=== PATIENT | male | born 1960 | race Caucasian/White ===

== ENCOUNTER → 2016-06-24 | Outpatient (CLI) | payer MEDICARE, OTHER ==
--- NOTE | 2016-06-24 13:48 | CT ---
EXAMINATION TYPE: CT lumbar spine wo con DATE OF EXAM: 06/24/2016 12:22 PM COMPARISON: 05/07/2010 HISTORY: low back pain, no recent injury CT DLP: 1498.6 mGycm CONTRAST: none TECHNIQUE: CT of the lumbar spine is performed on a spiral scan at 3 mm thick sections. Reconstructed images are performed in the coronal and sagittal planes. FINDINGS: T9-T10: No focal disc herniation or significant disc bulge is evident. No spinal canal stenosis or neural foraminal stenosis is present. T10-T11: Vacuum disc phenomenon is present. No significant disc bulge or spinal canal stenosis is pre sent. T11-T12: There is a Schmorl's node formation. Vacuum disc phenomenon is present. Mild superior endpla te compression deformity of T12 is present. No disc herniation or significant disc bulge is evident. T12-L1: No focal disc herniation or significant disc bulge is evident. No spinal canal stenosis or neural foraminal stenosis is present. L1-L2: Mild disc bulge is present. No spinal canal stenosis is present. Neural foramen are patent. L2-L3: Broad-based disc bulge has moderate anterior thecal sac flattening. No AP spinal canal stenosi s is present. Mild infra foraminal narrowing due to disc bulging is present. The superior endplate of L3 may have a mild compression deformity of indeterminate age. L3-L4: Broad-based disc bulge is present with moderate anterior thecal sac compression. Ligamentum fl avum laxity is present with posterior lateral thecal sac compression. This is contributing to spinal canal stenosis. The neural foramen are patent. L4-L5: Beam hardening artifact from pedicle screws limits the evaluation. Laminectomy has been perfor med. Obvious stenosis is not identified. Foramen are patent. Disc spacer is present. There is narrowi ng of the disc height. Mild vacuum disc phenomenon is present. L5-S1: Beam hardening artifact is present. Minimal grade 1 spondylolisthesis is present. There is lik erick some disc uncovering. No spinal canal stenosis is present. Neural foramen appear patent. Vacuum d isc phenomenon is likely present. Disc spacers present. The comparison study is a presurgical evaluation. The superior endplate compression deformities aren' t interval finding within the [id number] for the spondylolisthesis at L5-S1 appears stable. Spinal canal stenosis L3-4 is progressive. IMPRESSION: 1. Spinal canal stenosis L3-L4 and ligamentum flavum laxity and disc bulging. 2. Minimal grade 1 spondylolisthesis L5 anteriorly on S1. 3. Disc spaces L4-5 L5-S1. 4. Disc bulging L2-3, L3-4.
== END | disposition home or self-care (01) ==
LOC: RADCTMAIN 10:59
PROVIDERS: ATTEND Family Medicine
DX: M48.06 Spinal stenosis, lumbar region (principal); M51.26 Other intervertebral disc displacement, lumbar region; M43.17 Spondylolisthesis, lumbosacral region
CPT/HCPCS: 72131

== ENCOUNTER 2018-04-10 22:32 | Emergency (ER) | payer MEDICARE, OTHER ==
[2018-04-10 22:39] VITALS: RESP 18; TEMP 99
[2018-04-10] MEDS ORDERED: LORazepam 2 MG/ML INJ IV STA ×2 (23:07→23:09)
[2018-04-10] MEDS ORDERED: SODIUM CHLORIDE 0.9% 1,000 ML IV STA (23:09)
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
[2018-04-10 23:26] LABS: Basophils # (A) 0.1 k/uL (0-0.2); Basophils % (A) 1 %; Eosinophils # (A) 0.1 k/uL (0-0.7); Eosinophils % (A) 1 %; HCT 45.9 % (39.0-53.0); HGB 15.4 gm/dL (13.0-17.5); Lymphocytes # (A) 2.9 k/uL (1.0-4.8); Lymphocytes % (A) 29 %; MCH 30.4 pg (25.0-35.0); MCHC 33.6 g/dL (31.0-37.0); MCV 90.5 fL (80.0-100.0); Mean Platelet Volume 7.4; Monocytes # (A) 1.2 k/uL (0-1.0); Monocytes % (A) 12 %; Neutrophils # (A) 5.5 k/uL (1.3-7.7); Neutrophils % (A) 55 %; Platelet Count 223 k/uL (150-450); RBC 5.07 m/uL (4.30-5.90); RDW 14.7 % (11.5-15.5); WBC 9.9 k/uL (3.8-10.6)
[2018-04-10 23:34] LABS: Partial Thromboplastin Time 24.1 sec (22.0-30.0); Prothrombin Time 10.9 sec (9.0-12.0)
[2018-04-10 23:38] LABS: Creatine Kinase 483 U/L (55-170)
[2018-04-10 23:38] LABS: Glucose,Whole Blood 118 mg/dL (75-99)
[2018-04-10 23:40] LABS: ALT 79 U/L (21-72); AST 91 U/L (17-59); Albumin 4.5 g/dL (3.5-5.0); Alkaline Phosphatase 78 U/L (38-126); Anion Gap 13 mmol/L; Blood Urea Nitrogen 14 mg/dL (9-20); Carbon Dioxide 28 mmol/L (22-30); Chloride 96 mmol/L (98-107); Glucose 99 mg/dL (74-99); Magnesium 1.2 mg/dL (1.6-2.3); Potassium 3.2 mmol/L (3.5-5.1); Sodium 137 mmol/L (137-145); Total Bilirubin 1.3 mg/dL (0.2-1.3); Total Protein 7.7 g/dL (6.3-8.2)
--- NOTE | 2018-04-10 23:44 | CT ---
EXAMINATION TYPE: CT brain wo con DATE OF EXAM: 04/10/2018 COMPARISON: 01/29/2017 HISTORY: tremors, dizziness. CT DLP: 1127.40 mGycm Automated exposure control for dose reduction was used. FINDINGS: There is a large left posterior temporal craniotomy defect. There is hypodensity in large area of the left temporal lobe consistent with old infarct and encephalomalacia. There is no midline shift. Ther e is no sign of intracranial hemorrhage. IMPRESSION: OLD ENCEPHALOMALACIA LEFT TEMPORAL LOBE WITHOUT CHANGE COMPARED TO OLD EXAM. NO ACUTE INTRACRANIAL AB NORMALITY.
[2018-04-10 23:49] LABS: Creatine Kinase MB 6.3 ng/mL (0.0-2.4); Troponin I <0.012 ng/mL (0.000-0.034)
--- NOTE | 2018-04-10 23:51 | XR ---
EXAMINATION TYPE: XR chest 2V DATE OF EXAM: 04/10/2018 COMPARISON: 03/11/2015 HISTORY: Dizziness TECHNIQUE: Frontal and lateral views of the chest are obtained. FINDINGS: Heart and mediastinum are normal. Lungs are clear. Costophrenic angles are clear. There ar e chest leads. Bony thorax is intact. IMPRESSION: Normal chest. No change.
[2018-04-11] MEDS ORDERED: POTASSIUM CHLORIDE ER 20 MEQ TAB.ER PO STA (00:01)
[2018-04-11] MEDS ORDERED: MAGNESIUM OXIDE 400 MG TAB PO STA (00:01)
[2018-04-11] MEDS: MAGNESIUM SULFATE-D5W PMX 1 GM in DEXTROSE/WATER 1 100ML.BAG IVPB SCH ×2 (00:15→01:46)
[2018-04-11 01:45] VITALS: BP 127/84; PULSE 79
== END 2018-04-11 01:48 | disposition home or self-care (01) ==
LOC: EC 22:32
DX: F10.239 Alcohol dependence with withdrawal, unspecified (principal); K21.9 Gastro-esophageal reflux disease without esophagitis; I10 Essential (primary) hypertension; M19.90 Unspecified osteoarthritis, unspecified site; M10.9 Gout, unspecified; Z86.73 Personal history of transient ischemic attack (TIA), and cerebral infarction without residual deficits; Z96.652 Presence of left artificial knee joint; Z87.891 Personal history of nicotine dependence; Z79.891 Long term (current) use of opiate analgesic; Z79.899 Other long term (current) drug therapy; Z88.6 Allergy status to analgesic agent; Z53.20 Procedure and treatment not carried out because of patient's decision for unspecified reasons
CPT/HCPCS: 36415; 93005; 80053; 82550; 82553; 83735; 84484; 85025; 85610; 85730; 71046; 70450; 99285; 96365; 96375; 96361; J2060; J3475

== ENCOUNTER → 2018-05-03 | Outpatient (CLI) | payer MEDICARE, OTHER ==
--- NOTE | 2018-05-03 12:50 | CT ---
EXAMINATION TYPE: CT angio chest DATE OF EXAM: 05/03/2018 COMPARISON: CTA chest February 27, 2015. Two-view chest x-ray April 10, 2018. HISTORY: Elevated d-dimer. CT DLP: 463.2 mGycm. Automated Exposure Control for Dose Reduction was Utilized. CONTRAST: CTA scan of the thorax is performed with IV Contrast, patient injected with 100 mL of Isovue 370, pul monary embolism protocol. MIP Images are created on CT scanner and reviewed. FINDINGS: LUNGS: The lungs are grossly clear, there is no concerning parenchymal mass or nodule identified. T here is no pleural effusion or pneumothorax seen. The tracheobronchial tree is patent. MEDIASTINUM: There is satisfactory enhancement of the pulmonary artery and its branches, there is no CT evidence for pulmonary embolism. There are no greater than 1 cm hilar or mediastinal lymph nodes. No cardiomegaly or pericardial effusion is seen. Coronary artery calcification is seen which is no darcy marked coronary artery disease. OTHER: Moderate multilevel spurring in the spine is present. Bilateral gynecomastia is present with p rogression from 2015 study noted. IMPRESSION: No CT evidence for acute pulmonary embolism. No suspicious acute pulmonary process.
== END ==
LOC: RADCTMAIN 12:02
PROVIDERS: ATTEND Family Medicine
DX: R79.1 Abnormal coagulation profile (principal)
CPT/HCPCS: 71275; Q9967

== ENCOUNTER 2018-05-14 18:16 | Emergency (ER) | payer MEDICARE, OTHER ==
[2018-05-14 18:35] VITALS: BP 154/88
[2018-05-14] MEDS ORDERED: ACETAMINOPHEN TAB 500 MG TAB PO STA (20:01)
[2018-05-14] MEDS ORDERED: LIDOCAINE 5% PATCH TOPICAL STA (20:02)
--- NOTE | 2018-05-14 20:24 | XR ---
EXAMINATION TYPE: XR chest 2V DATE OF EXAM: 05/14/2018 COMPARISON: 04/10/2018 HISTORY: Neck pain. Chest pain TECHNIQUE: Frontal and lateral views of the chest are obtained. FINDINGS: There is no heart failure nor confluent pneumonic infiltrate. Costophrenic angles are reji r. There is no pleural effusion. Bony thorax is intact. IMPRESSION: No active cardiopulmonary disease. Normal heart. No change.
--- NOTE | 2018-05-14 20:25 | XR ---
EXAMINATION TYPE: XR cervical spine comp DATE OF EXAM: 05/14/2018 COMPARISON: NONE HISTORY: Neck pain TECHNIQUE: 5 views FINDINGS: There is degenerative disc space narrowing throughout the cervical spine with spur formatio n. There is slight kyphotic curvature. Posterior elements are intact. Atlantoaxial facet joint is int act. There are no cervical ribs. IMPRESSION: Spondylotic changes. No fracture.
[2018-05-14 20:33] VITALS: PULSE 94; RESP 22; TEMP 98.3
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
[2018-05-14 20:54] LABS: Appearance,Urine Clear (Clear); Bilirubin,Urine Negative (Negative); Blood,Urine Negative (Negative); Color,Urine Yellow; Glucose,Urine (UA) Negative (Negative); Ketones,Urine Negative (Negative); Leukocyte Esterase,Urine Negative (Negative); Nitrite,Urine Negative (Negative); Protein,Urine Negative (Negative); Specific Gravity,Urine 1.003 (1.001-1.035); Urobilinogen,Urine <2.0 mg/dL (<2.0)
== END 2018-05-14 21:10 | disposition home or self-care (01) ==
LOC: EC 18:16
DX: G89.29 Other chronic pain (principal); M54.9 Dorsalgia, unspecified; M54.2 Cervicalgia; R51 Headache; R05 Cough; K21.9 Gastro-esophageal reflux disease without esophagitis; I10 Essential (primary) hypertension; M19.90 Unspecified osteoarthritis, unspecified site; Z79.899 Other long term (current) drug therapy; Z88.6 Allergy status to analgesic agent; Z86.73 Personal history of transient ischemic attack (TIA), and cerebral infarction without residual deficits; Z86.718 Personal history of other venous thrombosis and embolism; Z87.891 Personal history of nicotine dependence
CPT/HCPCS: 71046; 72050; 81003; 99284

== ENCOUNTER → 2018-05-24 | Outpatient (CLI) | payer MEDICARE, OTHER ==
--- NOTE | 2018-05-24 12:34 | CT ---
EXAMINATION TYPE: CT cervical spine wo con DATE OF EXAM: 05/24/2018 COMPARISON: 09/20/2011 HISTORY: Cervicalgia CT DLP: 539.[address] of the cervical spine was performed with bone and soft tissue window settings submitted . Coronal and sagittal reconstruction is obtained. C2-3: Within normal limits C3-4: Severe degenerative disc space narrowing. Endplate sclerosis with subchondral cyst formation. V entral and dorsal spondylosis. Posterior disc endplate complex effacing the ventral thecal sac. Degen erative change cervical apophyseal joints with bilateral foraminal encroachment. No lokesh central denisse nosis appreciated at this time. C4-5:Severe degenerative disc space narrowing. Endplate sclerosis with subchondral cyst formation. Ve ntral and dorsal spondylosis. Posterior disc endplate complex effacing the ventral thecal sac. Degene rative change cervical apophyseal joints with bilateral foraminal encroachment. Mild to moderate cent ral stenosis identified. C5-6:Severe degenerative disc space narrowing. Endplate sclerosis with subchondral cyst formation. Ve ntral and dorsal spondylosis. Posterior disc endplate complex effacing the ventral thecal sac. Degene rative change cervical apophyseal joints with bilateral foraminal encroachment. Mild central stenosis noted. C6-7:Severe degenerative disc space narrowing. Endplate sclerosis with subchondral cyst formation. Ve ntral and dorsal spondylosis. Posterior disc endplate complex effacing the ventral thecal sac. Degene rative change cervical apophyseal joints with bilateral foraminal encroachment. No central stenosis a ppreciated. C7-T1: Mild degenerative disc space narrowing. Minimal spondylosis. No herniation protrusion or centr al stenosis. No foraminal encroachment. No evidence for malalignment or fracture. IMPRESSION: 1. Severe multilevel degenerative disc disease with the disc endplate complex and central stenosis as outlined above.
--- NOTE | 2018-05-24 12:40 | CT ---
EXAMINATION TYPE: CT thoracic spine wo con DATE OF EXAM: 05/24/2018 COMPARISON: June 10, 2009 HISTORY: Pain in thoracic spine CT DLP: 1313.40 mGycm Automated exposure control for dose reduction was used. Unenhanced CT of the thoracic spine was performed with bone and soft tissue window settings submitted . Sagittal coronal axial images are reviewed. There is normal alignment and prevertebral soft tissues. Multilevel Schmorl node formation is identif ied there is ventral spondylosis. Mild posterior disc bulges seen at several levels without evidence for disc herniation or protrusion. There is no evidence for central stenosis. No evidence for bony de structive process. No compression fractures are evident. No paraspinal mass identified. FINDINGS: IMPRESSION: 1. DEGENERATIVE DISC SPACE NARROWING AND MILD SPONDYLOSIS. NO CENTRAL STENOSIS APPRECIATED. 2. MULTILEVEL SCHMORL NODE FORMATION.
== END | disposition home or self-care (01) ==
LOC: RADCTMAIN 11:19
PROVIDERS: ATTEND Family Medicine
DX: M48.02 Spinal stenosis, cervical region (principal); M50.31 Other cervical disc degeneration, high cervical region; M48.04 Spinal stenosis, thoracic region; M47.814 Spondylosis without myelopathy or radiculopathy, thoracic region
CPT/HCPCS: 72125; 72128

== ENCOUNTER → 2018-10-15 | Outpatient (CLI) | payer MEDICARE, OTHER ==
--- NOTE | 2018-10-15 08:17 | CT ---
EXAMINATION TYPE: CT lumbar spine wo con DATE OF EXAM: 10/15/2018 COMPARISON: 06/24/2016 HISTORY: Low back pain CT DLP: [address] of the lumbar spine was performed. Bone and soft tissue window settings are submitted as well as coronal and sagittal reconstructions. L1-L2: Normal disc space height. No disc herniation protrusion or central stenosis. No facet joint arthropathy. No evidence for foraminal encroachment. L2-L3: Mild degenerative disc space narrowing. Mild circumferential disc bulge greatest posteriorly w ith mild effacement ventral thecal sac. No evidence for central stenosis or disc herniation. Foramina are patent bilaterally. L3-L4: Moderate degenerative disc space narrowing. Moderate circumferential disc bulge. Hypertrophy o f ligamentum flavum and facet joint arthropathy resulting in moderate central stenosis. L4-L5: Post Operative changes of the lumbar laminectomy and fusion. Intervertebral body spacers in pl [place]. Alignment is anatomic at this level. No evidence for recurrent or residual disease. Streak artif act from a pedicular screws limits evaluation. L5-S1: Postoperative changes of lumbar laminectomy and fusion. Grade 1 anterolisthesis of L5 on S1 is stable at 5 mm. Intervertebral body spacer noted. No evidence recurrent or residual disease at this time. No paraspinal masses are identified. Lumbar segments are free of fracture. IMPRESSION: 1. Persistent canal stenosis and degenerative disc disease at L3-4. 2. Stable left postoperative changes of the lumbar fusion and laminectomy at L4-5 and L5-S1. Grade 1 anterolisthesis L5 on S1 is noted.
== END | disposition home or self-care (01) ==
LOC: RADCTMAIN 07:31
PROVIDERS: ATTEND Family Medicine
DX: M48.061 Spinal stenosis, lumbar region without neurogenic claudication (principal); M43.16 Spondylolisthesis, lumbar region; M51.36 Other intervertebral disc degeneration, lumbar region
CPT/HCPCS: 72131

== ENCOUNTER 2018-11-23 18:04 | Observation (INO) | payer MEDICARE, OTHER ==
[2018-11-23] MEDS ORDERED: DIAZEPAM 5 MG/ML 2 ML INJ IVP STA (18:30)
[2018-11-23] MEDS ORDERED: SODIUM CHLORIDE 0.9% 500 ML 500 ML IV STA (18:30)
[2018-11-23] MEDS ORDERED: HYDROmorphone 0.5 MG/0.5 ML SYRINGE IVP STA (18:30)
[2018-11-23] MEDS ORDERED: ONDANSETRON 4 MG/2 ML VIAL IVP STA (18:39)
[2018-11-23 18:44] LABS: Basophils # (A) 0.1 k/uL (0-0.2); Basophils % (A) 0 %; Eosinophils # (A) 0.1 k/uL (0-0.7); Eosinophils % (A) 1 %; HCT 50.9 % (39.0-53.0); HGB 17.5 gm/dL (13.0-17.5); Lymphocytes # (A) 2.4 k/uL (1.0-4.8); Lymphocytes % (A) 16 %; MCH 32.1 pg (25.0-35.0); MCHC 34.4 g/dL (31.0-37.0); MCV 93.2 fL (80.0-100.0); Mean Platelet Volume 7.1; Monocytes # (A) 1.6 k/uL (0-1.0); Monocytes % (A) 11 %; Neutrophils # (A) 10.5 k/uL (1.3-7.7); Neutrophils % (A) 71 %; Platelet Count 306 k/uL (150-450); RBC 5.46 m/uL (4.30-5.90); RDW 14.4 % (11.5-15.5); WBC 14.8 k/uL (3.8-10.6)
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
[2018-11-23 18:50] LABS: INR 1.1 (<1.2); Partial Thromboplastin Time 27.2 sec (22.0-30.0); Prothrombin Time 11.3 sec (9.0-12.0)
[2018-11-23 18:51] LABS: ALT 42 U/L (21-72); AST 44 U/L (17-59); African American GFR (CKD) >90 (>60 ml/min/1.73 sqM); Albumin 4.2 g/dL (3.5-5.0); Alkaline Phosphatase 85 U/L (38-126); Amylase 35 U/L (30-110); Anion Gap 15 mmol/L; Blood Urea Nitrogen 5 mg/dL (9-20); Carbon Dioxide 28 mmol/L (22-30); Chloride 93 mmol/L (98-107); Glucose 119 mg/dL (74-99); Non-African American GFR(CKD) >90 (>60 ml/min/1.73 sqM); Potassium 3.3 mmol/L (3.5-5.1); Sodium 136 mmol/L (137-145); Total Bilirubin 1.2 mg/dL (0.2-1.3); Total Protein 7.8 g/dL (6.3-8.2)
[2018-11-23] MEDS ORDERED: POTASSIUM CHLORIDE ER 20 MEQ TAB.ER PO STA (19:13)
[2018-11-23] MEDS ORDERED: HYDROmorphone 1 MG/ML 1 ML SYRINGE IVP STA (20:06)
--- NOTE | 2018-11-23 21:24 | XR ---
EXAMINATION: XR chest 2V DATE AND TIME: 11/23/2018 7:56 PM CLINICAL INDICATION: PHH; abdominal pain TECHNIQUE: AP and lateral COMPARISON: 05/14/2018 FINDINGS: The diaphragms are both elevated, particularly on the right. This was present on the prior study and is consistent with low lung inflation at the moment of x-ray exposure. This does not allow visualizat ion of the lower lobes, particularly on the right. The lungs appear to be clear as seen. The pleural spaces are negative. The cardiac silhouette is not enlarged. The remainder of the mediastinal silhouette is unremarkable. The skeletal structures and soft tissues are negative for acute findings. IMPRESSION: No definite acute process.
[2018-11-23 21:59] LABS: Appearance,Urine Cloudy (Clear); Bilirubin,Urine 1+ (Negative); Blood,Urine Negative (Negative); Color,Urine Dark Brown; Glucose,Urine (UA) Negative (Negative); Hyaline Casts,Urine 294 /lpf (0-2); Ketones,Urine Negative (Negative); Leukocyte Esterase,Urine Small (Negative); Mucus,Urine Many /hpf; Nitrite,Urine Negative (Negative); Protein,Urine 1+ (Negative); RBC,Urine 3 /hpf (0-5); Specific Gravity,Urine 1.024 (1.001-1.035); WBC,Urine 28 /hpf (0-5)
[2018-11-23] MEDS ORDERED: KETOROLAC 30 MG/ML 1 ML VIAL IVP STA (23:12)
[2018-11-23] MEDS ORDERED: NITROGLYCERIN SL TABS 0.4 MG TAB SUBLINGUAL PRN (23:15)
[2018-11-23] MEDS ORDERED: LABETALOL 5 MG/ML VIAL MDV IVP STA (23:57)
[2018-11-24 02:13] VITALS: BMI 29.0
[2018-11-24] MEDS: HYDROmorphone 1 MG/ML 1 ML SYRINGE IVP PRN ×4 (02:25→23:04)
[2018-11-24 07:03] LABS: Cholesterol 149 mg/dL (<200); HDL Cholesterol 38 mg/dL (40-60); LDL Cholesterol,Calculated 96 mg/dL (0-99); Triglycerides 73 mg/dL (<150)
[2018-11-24] MEDS ORDERED: GABAPENTIN 100 MG CAP PO STA (10:00)
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
[2018-11-24] MEDS: amLODIPine 10 MG TAB PO SCH (11:28)
[2018-11-24] MEDS: PANTOPRAZOLE 40 MG TABLET PO SCH (11:28)
[2018-11-24] MEDS: METOPROLOL SUCCINATE (ER) 50 MG TAB.ER.24H PO SCH (11:28)
[2018-11-24] MEDS: POTASSIUM CHLORIDE ER 10 MEQ TAB.ER.PRT PO SCH (11:29)
[2018-11-24] MEDS: FUROSEMIDE 40 MG TAB PO SCH (11:29)
[2018-11-24] MEDS: ENOXAPARIN 40 MG/0.4 ML SYRINGE SQ SCH (11:29)
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
[2018-11-24 12:30] LABS: Basophils # (A) 0.1 k/uL (0-0.2); Basophils % (A) 0 %; Eosinophils # (A) 0.1 k/uL (0-0.7); Eosinophils % (A) 1 %; HCT 43.1 % (39.0-53.0); Lymphocytes % (A) 14 %; MCH 31.7 pg (25.0-35.0); MCHC 32.5 g/dL (31.0-37.0); MCV 97.6 fL (80.0-100.0); Mean Platelet Volume 8.9; Monocytes # (A) 1.9 k/uL (0-1.0); Monocytes % (A) 13 %; Neutrophils % (A) 70 %; Platelet Count 213 k/uL (150-450); RBC 4.42 m/uL (4.30-5.90); RDW 15.8 % (11.5-15.5); WBC 14.3 k/uL (3.8-10.6)
[2018-11-24] MEDS ORDERED: QUEtiapine 50 MG TAB PO SCH (21:00)
[2018-11-24] MEDS ORDERED: OXcarbazepine 150 MG TAB PO SCH (21:00)
[2018-11-25 06:45] VITALS: RESP 16
[2018-11-25] MEDS: HYDROmorphone 1 MG/ML 1 ML SYRINGE IVP PRN ×2 (06:54→11:23)
[2018-11-25] MEDS: PANTOPRAZOLE 40 MG TABLET PO SCH (06:54)
[2018-11-25 07:06] LABS: Basophils # (A) 0.1 k/uL (0-0.2); Basophils % (A) 0 %; Eosinophils # (A) 0.2 k/uL (0-0.7); Eosinophils % (A) 1 %; HCT 45.1 % (39.0-53.0); Lymphocytes # (A) 2.1 k/uL (1.0-4.8); Lymphocytes % (A) 14 %; MCH 31.5 pg (25.0-35.0); MCHC 33.3 g/dL (31.0-37.0); MCV 94.7 fL (80.0-100.0); Mean Platelet Volume 7.1; Monocytes # (A) 1.9 k/uL (0-1.0); Monocytes % (A) 13 %; Neutrophils % (A) 70 %; Platelet Count 254 k/uL (150-450); RBC 4.76 m/uL (4.30-5.90); RDW 13.8 % (11.5-15.5); WBC 14.4 k/uL (3.8-10.6)
[2018-11-25 07:31] LABS: ALT 38 U/L (21-72); AST 45 U/L (17-59); African American GFR (CKD) >90 (>60 ml/min/1.73 sqM); Albumin 3.7 g/dL (3.5-5.0); Alkaline Phosphatase 70 U/L (38-126); Anion Gap 10 mmol/L; Blood Urea Nitrogen 11 mg/dL (9-20); Calcium 8.2 mg/dL (8.4-10.2); Carbon Dioxide 31 mmol/L (22-30); Chloride 91 mmol/L (98-107); Glucose 98 mg/dL (74-99); Non-African American GFR(CKD) >90 (>60 ml/min/1.73 sqM); Potassium 3.3 mmol/L (3.5-5.1); Sodium 132 mmol/L (137-145); Total Bilirubin 1.2 mg/dL (0.2-1.3); Total Protein 6.9 g/dL (6.3-8.2)
[2018-11-25] MEDS: METOPROLOL SUCCINATE (ER) 50 MG TAB.ER.24H PO SCH (08:03)
[2018-11-25] MEDS: FUROSEMIDE 40 MG TAB PO SCH (08:03)
[2018-11-25] MEDS: ENOXAPARIN 40 MG/0.4 ML SYRINGE SQ SCH (08:03)
[2018-11-25] MEDS: amLODIPine 10 MG TAB PO SCH (08:03)
[2018-11-25] MEDS: POTASSIUM CHLORIDE ER 10 MEQ TAB.ER.PRT PO SCH (08:03)
[2018-11-25] MEDS ORDERED: Potassium Replacement Protocol 1 EACH MISC MISCELLANE PRN ×2 (08:28→08:33)
[2018-11-25] MEDS: POTASSIUM CHLORIDE ER 20 MEQ TAB.ER PO SCH ×2 (09:14→11:22)
--- NOTE | 2018-11-25 11:30 | P.PN ---
Subjective Progress Note Date: 11/25/18 This is a 58-year-old gentleman with history of EtOH abuse, seizures, chronic back pain, prior CVA, history of DVT, hypertension, who presented to the hospital with right lower back discomfort with associated back spasms. He chronically has back pain but over the past 3 days the pain is Rey if acutely worse. Patient states he also had a pain that went up the back of his neck and into his head, he usually takes marijuana for this at home. Patient was having some episodes of associated vomiting when his pain got really bad and he came to the emergency room then for further evaluation and treatment. Chest x-ray did not reveal any acute process. EKG on arrival here showed normal sinus rhythm with nonspecific ST-T wave changes. Patient did have an EKG in the chart that showed a sinus bradycardia with a first-degree AV block. He was having significant pain at the time. I pressure 132/80 with a heart rate in the 80s, 96% on room air. The patient is running a low-grade temperature of 99.4. White blood cell count 14.8, hemoglobin 17.5, platelet count 306. Sodium 136, potassium 3.3, BUN 5, creatinine 0.6. Lactic acid on admission 2.3, troponins negative 3. UA shows a small amount of leukocyte Estrace. At the time of my examination this morning, patient complains of severe right lower back pain, he denies any chest discomfort but states when his pain gets really severe he developed some sharp stabbing sensations in the center of his chest. He also states that he had a stress test performed just over a year ago which he was told was normal at that time. 11/25/2018 Patient was seen and examined this morning, denies any chest discomfort. Hemodynamically stable. We are still awaiting the echocardiogram with Doppler results. But from our perspective, patient is cleared for discharge we will follow him up as an outpatient and perform outpatient stress testing once his back symptoms have improved. Objective - Vital Signs Vital signs: Vital Signs Temp 98.2 F 11/25/18 08:25 Pulse 102 H 11/25/18 08:25 Resp 16 11/25/18 08:25 BP 131/89 11/25/18 08:25 Pulse Ox 94 L 11/25/18 08:25 Intake & Output 11/24/18 11/25/18 11/25/18 18:59 06:59 18:59 Intake Total 240 360 Output Total 250 Balance 240 -250 360 Weight 94.2 kg Intake: Oral 240 360 Output: Urine 250 Other: Voiding Method Toilet Toilet Toilet Urinal Urinal # Voids 2 1 - Exam PHYSICAL EXAMINATION: GENERAL: 58-year-old gentleman, complaining of severe right lower back pain at the time of my examination HEENT: Head is atraumatic, normocephalic. Pupils equal, round. Sclera anicteric. Conjunctiva are clear. Mucous membranes of the mouth are moist. Neck is supple. There is no elevated jugular venous pressure. No carotid bruit is heard. HEART EXAMINATION: Heart S1, S2 normal. No murmur or gallop heard. CHEST EXAMINATION: Lungs are clear to auscultation and precussion. No chest wall tenderness is noted on palpation or with deep breathing. ABDOMEN: Soft, nontender. Bowel sounds are heard. No organomegaly noted. EXTREMITIES: 2+ peripheral pulses with no evidence of peripheral edema and no ca lf tenderness noted. Complaining of severe right lower back pain NEUROLOGIC patient is awake, alert and oriented 3 . - Labs CBC & Chem 7: 11/25/18 06:47 11/25/18 06:47 Labs: Abnormal Lab Results - Last 24 Hours (Table) 11/24/18 11/25/18 11/25/18 Range/Units 06:21 06:47 06:47 WBC 14.3 H 14.4 H (3.8-10.6) k/uL RDW 15.8 H (11.5-15.5) % Neutrophils # 10.0 H 10.0 H (1.3-7.7) k/uL Monocytes # 1.9 H 1.9 H (0-1.0) k/uL Sodium 132 L (137-145) mmol/L Potassium 3.3 L (3.5-5.1) mmol/L Chloride 91 L (98-107) mmol/L Carbon Dioxide 31 H (22-30) mmol/L Calcium 8.2 L (8.4-10.2) mg/dL Magnesium (1.6-2.3) mg/dL 11/25/18 Range/Units 06:47 WBC (3.8-10.6) k/uL RDW (11.5-15.5) % Neutrophils # (1.3-7.7) k/uL Monocytes # (0-1.0) k/uL Sodium (137-145) mmol/L Potassium (3.5-5.1) mmol/L Chloride (98-107) mmol/L Carbon Dioxide (22-30) mmol/L Calcium (8.4-10.2) mg/dL Magnesium 1.1 L (1.6-2.3) mg/dL Microbiology - Last 24 Hours (Table) 11/23/18 18:57 Urine Culture - Preliminary Urine,Catheterized Assessment and Plan Plan: Assessment and plan #1 severe right lower back pain and spasms. Patient has history of chronic back pain #2 atypical chest pain, sharp in nature, not suggestive of acute coronary syndrome. Troponins negative 3. EKG shows normal sinus rhythm with nonspecific ST-T wave changes #3 history of seizures #4 prior CVA #5 chronic back pain #6 EtOH abuse #7 mild UTI Plan Patient states he underwent a stress test proximally one year ago which was negative we will attempt to obtain a report of that, we will obtain an echocardiogram with Doppler study. At this point time patient will not be able to undergo any type of stress testing because of his complaints of severe back pain, once his back pain stabilizes we will recommend repeating a stress test. Further recommendations to follow. DNP note has been reviewed, I agree with a documented findings and plan of care. Patient was seen and examined.
[2018-11-25] MEDS ORDERED: Magnesium Replacement Protocol 1 EACH MISC MISCELLANE PRN (11:31)
[2018-11-25] MEDS ORDERED: MAGNESIUM OXIDE 400 MG TAB PO SCH (12:00)
[2018-11-25] MEDS: MAGNESIUM SULFATE-D5W PMX 1 GM in DEXTROSE/WATER 1 100ML.BAG IVPB SCH ×3 (12:02→15:06)
[2018-11-25] MEDS: GABAPENTIN 100 MG CAP PO SCH ×2 (12:06→17:44)
--- NOTE | 2018-11-25 12:06 | ECHOF ---
Referral Reason:chest pain MEASUREMENTS -------- HEIGHT: 175.3 cm WEIGHT: 95.3 kg BP: IVSd: 1.1 cm (0.6 - 1.1) LVIDd: 3.7 cm (3.9 - 5.3) LVPWd: 1.4 cm (0.6 - 1.1) IVSs: 1.8 cm LVIDs: 2.8 cm LVPWs: 2.1 cm RVIDd: 2.8 cm (< 3.3) LAESV Index (A-L): 34.92 ml/m Ao Diam: 3.0 cm (2.0 - 3.7) LA Diam: 3.9 cm (2.7 - 3.8) AV Cusp: 2.3 cm (1.5 - 2.6) EPSS: 0.2 cm MV E Charles: 0.73 m/s MV DecT: 279 ms MV A Charles: 0.70 m/s MV E/A Ratio: 1.05 RAP: 5.00 mmHg RVSP: 31.52 mmHg MV EF SLOPE: 117.41 mm/s (70 - 150) MV EXCURSION: 1.73 cm (> 18.000) FINDINGS -------- Sinus rhythm. This was a technically difficult study with suboptimal views. The left ventricular size is normal. There is mild concentric left ventricular hypertrophy. Overa ll left ventricular systolic function is low-normal with, an EF between 50 - 55 %. The diastolic fi lling pattern is normal for the age of the patient. The right ventricle is normal in size. Left atrium is mildly dilated by volume. The right atrium was not well visualized. Lumason used Interatrial and interventricular septum intact. The aortic valve is trileaflet and appears structurally normal. There is no evidence of aortic regu rgitation. There is no evidence of aortic stenosis. Mild mitral regurgitation is present. Mild tricuspid regurgitation present. There is no evidence of pulmonary hypertension. The right v entricular systolic pressure, as measured by Doppler, is 31.52mmHg. There is no pulmonic regurgitation present. The aortic root size is normal. IVC not well visualized There is no pericardial effusion. CONCLUSIONS -------- 1. Sinus rhythm. 2. This was a technically difficult study with suboptimal views. 3. The left ventricular size is normal. 4. There is mild concentric left ventricular hypertrophy. 5. Overall left ventricular systolic function is low-normal with, an EF between 50 - 55 %. 6. The diastolic filling pattern is normal for the age of the patient. 7. The right ventricle is normal in size. 8. Left atrium is mildly dilated by volume. 9. The right atrium was not well visualized. 10. Lumason used 11. Interatrial and interventricular septum intact. 12. The aortic valve is trileaflet and appears structurally normal. 13. There is no evidence of aortic regurgitation. 14. There is no evidence of aortic stenosis. 15. Mild mitral regurgitation is present. 16. Mild tricuspid regurgitation present. 17. There is no evidence of pulmonary hypertension. 18. The right ventricular systolic pressure, as measured by Doppler, is 31.52mmHg. 19. There is no pulmonic regurgitation present. 20. The aortic root size is normal. 21. IVC not well visualized 22. There is no pericardial effusion. SOFTWARE ENGINEER [employer]: Karen Ya RDCS
--- NOTE | 2018-11-25 15:24 | P.DS ---
Providers Date of admission: 11/24/18 00:27 Expected date of discharge: 11/25/18 Attending physician: Олег Sanford MD Consults: 11/23/18 23:15 Consult Physician Routine Consulting Provider: [facility] Consult Reason/Comments: Chest Pain Do you want consulting provider notified?: Yes Primary care physician: [facility] Course: Final Diagnoses: (1) Hypertension Current Visit: Yes Status: Acute Code(s): I10 - ESSENTIAL (PRIMARY) HYPERTENSION SNOMED Code(s): 61531208 (2) Seizure disorder Current Visit: Yes Status: Acute Code(s): G40.909 - EPILEPSY, UNSP, NOT INTRACTABLE, WITHOUT STATUS EPILEPTICUS SNOMED Code(s): 948016578 (3) Chronic pain Current Visit: Yes Status: Acute Code(s): G89.29 - OTHER CHRONIC PAIN SNOMED Code(s): 84675989 (4) Chest pain Current Visit: Yes Status: Acute Code(s): R07.9 - CHEST PAIN, UNSPECIFIED SNOMED Code(s): 24693966 (5) Intractable back pain Current Visit: Yes Status: Acute Code(s): M54.9 - DORSALGIA, UNSPECIFIED S NOMED Code(s): 601572744 (6) Urinary tract infection, urine culture reported no growth after 18 hours Current Visit: Yes Status: Acute Code(s): N39.0 - URINARY TRACT INFECTION, SITE NOT SPECIFIED SNOMED Code(s): 98659243 Hospital course: Pertinent Studies: (1) Hypertension Current Visit: Yes Status: Acute Code(s): I10 - ESSENTIAL (PRIMARY) HYPERTEN FELICITAS SNOMED Code(s): 72891657 (2) Seizure disorder Current Visit: Yes Status: Acute Code(s): G40.909 - EPILEPSY, UNSP, NOT INTRACTABLE, WITHOUT STATUS EPILEPTICUS SNOMED Code(s): 894099161 (3) Chronic pain Current Visit: Yes Status: Acute Code(s): G89.29 - OTHER CHRONIC PAIN SNOMED Code(s): 16578212 (4) Chest pain Current Visit: Yes Status: Acute Code(s): R07.9 - CHEST PAIN, UNSPECIFIED SNOMED Code(s): 17618205 (5) Intractable back pain Current Visit: Yes Status: Acute Code(s): M54.9 - DORSALGIA, UNSPECIFIED SNOMED Code(s): 444879767 (6) Urinary tract infection, urine culture reported no growth at 18 hours. Current Visit: Yes Status: Acute Code(s): N39.0 - URINARY TRACT INFECTION, SITE NOT SPECIFIED SNOMED Code(s): 37444978 (7) hypokalemia (8) hypomagnesemia Hospital course:Ruben Sharp is a 58 yo M with PMH significant for chronic back pain, CVA, seizure disorder, alcohol abuse who presented to the ED with new onset chest pain and pressure. He also complains of severe low back pain worsened from his baseline. Pt states that over the past 3 days his back pain had worsened to the point that he has had 'jolts' of severe lumbar pain with most movement and by yesterday he began to have dry heaves and vomiting. After vomiting pt began to notice chest pain and pressure which he describes as heaviness and burning across his sternum. He also reports shortness of breath with activity. Pt states he recently had a stress test about a year ago which was normal. He denies tobacco but continues to drink alcohol. Denies numbness/ti ngling, vision change, vomiting or abdominal pain. In the ED, vitals stable, CXR clear, WBC elevated to 14k with evidence of UTI and lactic 2.3. Trop negative x3. Evaluated by cardiology, recommending outpatient stress test once chronic back pain better controlled. Neurontin added to med regime. Urine culture reported no growth at 18 hours. Significant clinical improvement. Potassium and mag nesium being supplemented with follow-up labs this afternoon. Patient cleared by cardiology for discharge. Patient will be discharged home in a stable condition with guarded prognosis pending follow-up potassium and magnesium levels within normal limits. General: well nourished, well developed, painful with movement. Vitals reviewed Eyes: PERRL, EOMI, conjunctiva normal HENT: normocephalic, mucus membranes moist Neck: supple, no JVD Lungs: normal respiratory effort, no wheezes or rales CV: Regular rate and rhythm, no murmur. Peripheral pulses 2+ Abdomen: soft, nondistended, no organomegaly MSK: low back tenderness to palpation lumbar paraspinal muscles. No peripheral edema Skin: warm and dry. Neuro: A&Ox3, anxious. No focal deficits. LE str 5/5 and DTRs 2+ The impression and plan of care has been dictated as directed. : I performed a history and examination of this patient, discussed the same with the dictator. I agree with the dictator's note ,documented as a scribe. Any additional findings or plans will be noted. Time taken: 35 min. Patient Condition at Discharge: Stable Plan - Discharge Summary Discharge Rx Participant: No New Discharge Prescriptions: New Gabapentin [Neurontin] 100 mg PO TID #21 cap Magnesium Chloride [Slow Mag] 64 mg PO TID #30 tablet.er Continue amLODIPine BESYLATE [Norvasc] 10 mg PO DAILY Metoprolol Succinate [Toprol XL] 50 mg PO DAILY Furosemide [Lasix] 40 mg PO DAILY Omeprazole [PriLOSEC] 40 mg PO DAILY oxyCODONE HCL [oxyCODONE HCL (IR)] 20 mg PO TID Allopurinol [Zyloprim] 300 mg PO DAILY Potassium Chloride ER [K-Dur 10] 10 meq PO DAILY OXcarbazepine [Trileptal] 150 - 300 mg PO HS QUEtiapine [SEROquel] 50 mg PO HS Discharge Medication List Furosemide [Lasix] 40 mg PO DAILY 03/07/15 [History] Metoprolol Succinate [Toprol XL] 50 mg PO DAILY 03/07/15 [History] Omeprazole [PriLOSEC] 40 mg PO DAILY 03/07/15 [History] amLODIPine BESYLATE [Norvasc] 10 mg PO DAILY 03/07/15 [History] Allopurinol [Zyloprim] 300 mg PO DAILY 04/10/18 [History] oxyCODONE HCL [oxyCODONE HCL (IR)] 20 mg PO TID 04/10/18 [History] OXcarbazepine [Trileptal] 150 - 300 mg PO HS 11/24/18 [History] Potassium Chloride ER [K-Dur 10] 10 meq PO DAILY 11/24/18 [History] QUEtiapine [SEROquel] 50 mg PO HS 11/24/18 [History] Gabapentin [Neurontin] 100 mg PO TID #21 cap 11/25/18 [Rx] Magnesium Chloride [Slow Mag] 64 mg PO TID #30 tablet.er 11/25/18 [Rx] Follow up Appointment(s)/Referral(s): Manan Bhatt MD [STAFF PHYSICIAN] - 12/07/18 1:30 pm (Thursday) Justine Sanford DO [Primary Care Provider] - 12/01/18 12:45 pm (Thursday with Donna ) Ambulatory/Diagnostic Orders: Complete Blood Count w/diff [LAB.AMB] Time Frame: 3 Days, Location: None Selected Patient Instructions/Handouts: Chest Pain (DC) Activity/Diet/Wound Care/Special Instructions: Pending magnesium, potassium supplementation, follow-up levels within normal limits .
[2018-11-25 17:15] LABS: Magnesium 2.1 mg/dL (1.6-2.3); Potassium 3.4 mmol/L (3.5-5.1)
[2018-11-25] MEDS ORDERED: POTASSIUM CHLORIDE ER 20 MEQ TAB.ER PO STA (17:39)
[2018-11-25 18:06] VITALS: BP 126/84; PULSE 89; TEMP 98.4
== END 2018-11-25 18:25 | disposition home or self-care (01) ==
LOC: EC 18:04 → 3SCARD 11-24 00:27
PROVIDERS: ADMIT Family Medicine; ATTEND Family Medicine
DX: R07.89 Other chest pain (principal); G89.29 Other chronic pain; M54.5 Low back pain; N30.00 Acute cystitis without hematuria; I44.0 Atrioventricular block, first degree; R00.1 Bradycardia, unspecified; M62.830 Muscle spasm of back; F10.10 Alcohol abuse, uncomplicated; E87.6 Hypokalemia; E83.42 Hypomagnesemia; I10 Essential (primary) hypertension; G40.909 Epilepsy, unspecified, not intractable, without status epilepticus; G20 Parkinson's disease; M10.9 Gout, unspecified; G43.909 Migraine, unspecified, not intractable, without status migrainosus; K21.9 Gastro-esophageal reflux disease without esophagitis; M19.90 Unspecified osteoarthritis, unspecified site; R06.02 Shortness of breath; I69.954 Hemiplegia and hemiparesis following unspecified cerebrovascular disease affecting left non-dominant side; Z87.820 Personal history of traumatic brain injury; Z79.899 Other long term (current) drug therapy; Z79.891 Long term (current) use of opiate analgesic; Z87.442 Personal history of urinary calculi; Z86.718 Personal history of other venous thrombosis and embolism; Z91.81 History of falling; Z87.81 Personal history of (healed) traumatic fracture; Z90.49 Acquired absence of other specified parts of digestive tract; Z87.891 Personal history of nicotine dependence; Z96.652 Presence of left artificial knee joint; Z93.0 Tracheostomy status; Z88.6 Allergy status to analgesic agent; Z83.3 Family history of diabetes mellitus
CPT/HCPCS: 96376 ×2; 96366 ×2; 96367; 96372 ×2; 51701; 96365; 96375; 99285; 36415 ×2; 80061; 80053 ×2; 82150; 83605; 83690; 83735; 84132; 84484 ×2; 85025 ×3; 85610; 85730; 81001; 87086; 71046; G0378 ×2; C8929; J3360; J2405; J1650 ×2; J0696 ×3; J1885; J1170 ×4; J3475; Q9950; 93005; 93306

== ENCOUNTER 2019-08-19 16:32 | Inpatient (IN) | payer MEDICARE, OTHER ==
[2019-08-19] MEDS ORDERED: HYDROmorphone 1 MG/ML 1 ML SYRINGE IVP STA ×2 (17:27→20:11)
--- NOTE | 2019-08-19 17:47 | XR ---
EXAMINATION TYPE: XR chest 1V portable DATE OF EXAM: 08/19/2019 COMPARISON: Prior chest x-ray 06/01/2019 HISTORY: Chest pain TECHNIQUE: Single frontal view of the chest is obtained. FINDINGS: Right hemidiaphragm is elevated. Cardiac mediastinal silhouette, pulmonary vascularity and phong are stable. No evident airspace disease, pneumothorax, or pleural effusion. There are overlying cardiac leads. Lung volumes are low. IMPRESSION: Stable exam, no acute abnormality. Chronic elevated right hemidiaphragm with colonic int erposition.
[2019-08-19] MEDS ORDERED: SODIUM CHLORIDE 0.9% 1,000 ML IV ONE (17:48)
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
[2019-08-19 17:59] LABS: Basophils % (A) 0 %; Eosinophils # (A) 0.1 k/uL (0-0.7); Eosinophils % (A) 0 %; HCT 45.6 % (39.0-53.0); HGB 15.5 gm/dL (13.0-17.5); Lymphocytes # (A) 2.1 k/uL (1.0-4.8); Lymphocytes % (A) 11 %; MCH 31.2 pg (25.0-35.0); MCHC 33.9 g/dL (31.0-37.0); Mean Platelet Volume 9.1; Monocytes # (A) 2.8 k/uL (0-1.0); Monocytes % (A) 14 %; Neutrophils # (A) 13.8 k/uL (1.3-7.7); Neutrophils % (A) 72 %; Platelet Count 306 k/uL (150-450); RBC 4.96 m/uL (4.30-5.90); RDW 13.6 % (11.5-15.5)
[2019-08-19 18:14] LABS: ALT 30 U/L (4-49); AST 54 U/L (17-59); African American GFR (CKD) >90 (>60 ml/min/1.73 sqM); Albumin 3.7 g/dL (3.5-5.0); Alkaline Phosphatase 107 U/L (38-126); Anion Gap 14 mmol/L; Blood Urea Nitrogen 10 mg/dL (9-20); Calcium 7.6 mg/dL (8.4-10.2); Carbon Dioxide 31 mmol/L (22-30); Chloride 86 mmol/L (98-107); Glucose 101 mg/dL (74-99); Non-African American GFR(CKD) >90 (>60 ml/min/1.73 sqM); Sodium 131 mmol/L (137-145); Total Bilirubin 2.2 mg/dL (0.2-1.3); Total Protein 7.2 g/dL (6.3-8.2)
[2019-08-19 18:16] LABS: Magnesium 0.9 mg/dL (1.6-2.3)
[2019-08-19] MEDS ORDERED: PANTOPRAZOLE 40 MG/10 ML VIAL IVP STA (18:23)
[2019-08-19] MEDS ORDERED: ONDANSETRON 4 MG/2 ML VIAL IVP STA (18:23)
[2019-08-19] MEDS ORDERED: LORazepam 2 MG/ML INJ IV STA ×2 (18:23→20:11)
[2019-08-19] MEDS ORDERED: SODIUM CHLORIDE 0.9% 500 ML 500 ML IV ONE ×2 (18:25→20:11)
[2019-08-19 18:41] LABS: INR 1.2 (<1.2); Partial Thromboplastin Time 29.4 sec (22.0-30.0); Prothrombin Time 12.3 sec (9.0-12.0)
[2019-08-19 18:42] LABS: D-Dimer 1.39 mg/L FEU (<0.60)
[2019-08-19] MEDS: POTASSIUM CHLORIDE 10 MEQ in WATER FOR INJECTION 1 100ML.BAG IVPB SCH ×2 (19:44→21:55)
[2019-08-19] MEDS: MAGNESIUM SULFATE-D5W PMX 1 GM in DEXTROSE/WATER 1 100ML.BAG IVPB SCH ×2 (19:51→21:59)
--- NOTE | 2019-08-19 20:01 | CT ---
EXAMINATION TYPE: CT angio chest DATE OF EXAM: 08/19/2019 COMPARISON: Chest CT 05/03/2018, chest x-ray 08/19/2019 HISTORY: chest pain, fever, elevated d-dimer CT DLP: 573.8 mGycm Automated exposure control for dose reduction was used. CONTRAST: CTA scan of the thorax is performed with IV Contrast, patient injected with 72cc mL of Isovue 370, pu lmonary embolism protocol. MIP images are created and reviewed. 3D reconstructed images are created on an independent workstation and reviewed. FINDINGS: Chronic elevation of the right hemidiaphragm is noted. Some probable basilar atelectatic ch eze or scarring is present at the posterior costophrenic angle, platelike atelectasis or scarring is present in the right midlung, right middle lobe. LUNGS: The lungs show no concerning parenchymal mass or nodule identified. There is no pleural effu dev or pneumothorax seen. The tracheobronchial tree is patent. AORTA: No additional significant abnormality is seen. MEDIASTINUM: There is satisfactory enhancement of the pulmonary artery and its branches, there is no CT evidence for pulmonary embolism. There are no greater than 1 cm hilar or mediastinal lymph nodes. No pericardial effusion is seen. OTHER: Posterior right ninth rib shows a fracture with pseudoarthrosis. Posterior left 11th rib also shows that finding. The right-sided fracture is stable, left pseudoarthrosis has developed in the in terval. Cortical cyst is associated with the left kidney posteriorly measuring 3 cm IMPRESSION: NO EVIDENT PULMONARY EMBOLISM. THERE IS ATELECTATIC CHANGES SUSPECTED IN THE RIGHT LUNG, DIFFICULT TO EXCLUDE A POSTERIOR BASILAR PNEUMONIA VERSUS ATELECTASIS, THERE IS NO EVIDENT PULMONARY EMBOLISM. CH RONIC RIB FRACTURES.
[2019-08-19] MEDS ORDERED: AZITHROMYCIN 500 MG in SODIUM CHLORIDE 0.9% 250 ML IVPB STA (20:08)
[2019-08-19] MEDS ORDERED: cefTRIAXone IN SWFI 1,000 MG/10 ML SYRINGE IVP STA (20:08)
[2019-08-19] MEDS ORDERED: THIAMINE 100 MG/ML 2 ML VIAL IM STA (20:11)
[2019-08-19] MEDS ORDERED: ACETAMINOPHEN TAB 325 MG TAB PO PRN (20:13)
[2019-08-19] MEDS ORDERED: NALOXONE 0.4 MG/ML 1 ML VIAL IV PRN (20:13)
[2019-08-19 21:55] LABS: Leukocyte Esterase,Urine Negative (Negative); Nitrite,Urine Negative (Negative)
[2019-08-19 21:58] LABS: Appearance,Urine Slightly Cloudy (Clear); Color,Urine Amber
[2019-08-19 21:59] LABS: Bilirubin,Urine 2+ (Negative); Blood,Urine Small (Negative); Glucose,Urine (UA) Negative (Negative); Ketones,Urine Negative (Negative); Protein,Urine 1+ (Negative); RBC,Urine 1 /hpf (0-5); WBC,Urine 4 /hpf (0-5)
[2019-08-19 22:17] LABS: Glucose,Whole Blood 168 mg/dL (75-99)
[2019-08-19] MEDS: LORazepam 2 MG/ML INJ IV PRN (23:01)
[2019-08-19] MEDS: HYDROmorphone 0.5 MG/0.5 ML SYRINGE IVP PRN (23:02)
[2019-08-20] MEDS: POTASSIUM CHLORIDE 10 MEQ in WATER FOR INJECTION 1 100ML.BAG IVPB SCH ×2 (00:12→02:56)
[2019-08-20] MEDS: SODIUM CHLORIDE 0.9% 1,000 ML IV SCH ×3 (00:13→17:40)
[2019-08-20] MEDS: THIAMINE 100 MG TAB PO SCH ×3 (00:16→17:34)
[2019-08-20 00:48] LABS: Glucose,Whole Blood 149 mg/dL (75-99)
[2019-08-20] MEDS: LORazepam 2 MG/ML INJ IV PRN ×10 (00:48→21:30)
[2019-08-20] MEDS: HYDROmorphone 0.5 MG/0.5 ML SYRINGE IVP PRN ×5 (02:16→16:22)
[2019-08-20 05:57] LABS: Basophils % (A) 0 %; Eosinophils # (A) 0.1 k/uL (0-0.7); Eosinophils % (A) 1 %; HCT 42.5 % (39.0-53.0); HGB 14.3 gm/dL (13.0-17.5); Lymphocytes # (A) 1.9 k/uL (1.0-4.8); Lymphocytes % (A) 10 %; MCH 31.5 pg (25.0-35.0); MCHC 33.7 g/dL (31.0-37.0); MCV 93.3 fL (80.0-100.0); Mean Platelet Volume 7.9; Monocytes # (A) 2.2 k/uL (0-1.0); Monocytes % (A) 12 %; Neutrophils # (A) 13.8 k/uL (1.3-7.7); Neutrophils % (A) 75 %; Platelet Count 275 k/uL (150-450); RBC 4.55 m/uL (4.30-5.90); RDW 13.7 % (11.5-15.5); WBC 18.4 k/uL (3.8-10.6)
[2019-08-20 06:06] LABS: ALT 27 U/L (4-49); AST 47 U/L (17-59); African American GFR (CKD) >90 (>60 ml/min/1.73 sqM); Albumin 3.4 g/dL (3.5-5.0); Alkaline Phosphatase 100 U/L (38-126); Anion Gap 11 mmol/L; Blood Urea Nitrogen 7 mg/dL (9-20); Carbon Dioxide 28 mmol/L (22-30); Chloride 90 mmol/L (98-107); Glucose 116 mg/dL (74-99); Magnesium 1.3 mg/dL (1.6-2.3); Non-African American GFR(CKD) >90 (>60 ml/min/1.73 sqM); Potassium 3.2 mmol/L (3.5-5.1); Sodium 129 mmol/L (137-145); Total Protein 6.8 g/dL (6.3-8.2)
--- NOTE | 2019-08-20 06:11 | XR ---
EXAMINATION TYPE: XR chest 1V portable DATE OF EXAM: 08/20/2019 HISTORY: sob. REFERENCE: Previous study dated 08/19/2019. FINDINGS: There is chronic apparent elevation of the right hemidiaphragm. There is some atelectasis o r airspace disease in the right lung base. There is some atelectasis at the left lung base. Heart siz e upper limits of normal. There is minimal blunting of both CP angles and I could not exclude small, bilateral effusions. IMPRESSION: 1. MILD, BIBASILAR AIRSPACE DISEASE. 2. BORDERLINE CARDIOMEGALY. 3. I COULD NOT EXCLUDE SMALL, BILATERAL EFFUSIONS.
[2019-08-20] MEDS ORDERED: Potassium Replacement Protocol 1 EACH MISC MISCELLANE PRN (06:19)
[2019-08-20] MEDS ORDERED: Magnesium Replacement Protocol 1 EACH MISC MISCELLANE PRN (06:19)
[2019-08-20] MEDS: MAGNESIUM SULFATE-D5W PMX 1 GM in DEXTROSE/WATER 1 100ML.BAG IVPB SCH ×2 (08:14→09:29)
[2019-08-20] MEDS: POTASSIUM CHLORIDE ER 20 MEQ TAB.ER PO SCH ×4 (08:15→16:10)
[2019-08-20] MEDS ORDERED: LIDOCAINE 5% PATCH TOPICAL SCH ×2 (11:45→16:15)
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
--- NOTE | 2019-08-20 13:04 | CT ---
EXAMINATION TYPE: CT brain cspine wo con DATE OF EXAM: 08/20/2019 COMPARISON: Previous study dated 06/01/2019 HISTORY: Weakness with head and neck pain CT DLP: 1737.8 mGycm Automated exposure control for dose reduction was used. TECHNIQUE: CT scan of the head and cervical spine are performed without contrast. FINDINGS: BRAIN: There is been a previous left temporal craniotomy. There is extensive MALACIA INVOLVING THE TE MPORAL LOBE AND POSTERIOR LEFT PARIETAL LOBE. CENTRAL STRUCTURES ARE MIDLINE. THERE IS NO EVIDENCE OF HYDROCEPHALUS. NO ACUTE FOCAL LESION, MASS EF FECT OR MIDLINE SHIFT IS SEEN. I DO NOT SEE EVIDENCE OF INTRACRANIAL BLOOD. VISUALIZED PORTIONS OF THE PARANASAL SINUSES AND MASTOIDS ARE CLEAR. IMPRESSION: 1. NO ACUTE INTRACRANIAL ABNORMALITY. 2. EVIDENCE OF OLD TRAUMA TO THE LEFT TEMPORAL AND PARIETAL LOBES. CERVICAL SPINE: Visualized portions of the lungs are clear. Prevertebral soft tissues are unremarkable. Vertebral body height and alignment are maintained. Atlantoaxial relationships are normal. There is extensive degenerative disc disease and hypertrophic spondylosis throughout the cervical spi ne with relative sparing of C2-3. There is diffuse uncovertebral joint disease throughout these level s also. The facets are reasonably well-maintained. No definite protrusion is seen. There is multileve l intervertebral foraminal narrowing. No fractures are seen. IMPRESSION: 1. NO ACUTE OSSEOUS LESION. 2. EXTENSIVE DEGENERATIVE CHANGE.
--- NOTE | 2019-08-20 13:08 | US ---
EXAMINATION TYPE: US venous doppler duplex LE DATE OF EXAM: 08/20/2019 12:30 PM COMPARISON: US 03/24/2015 CLINICAL HISTORY: Rule out DVT. ICU patient, poor historian, prior left leg DVT SIDE PERFORMED: Bilateral TECHNIQUE: The lower extremity deep venous system is examined utilizing real time linear array sonog liset with graded compression, doppler sonography and color-flow sonography. VESSELS IMAGED: External Iliac Vein (EIV) Common Femoral Vein Deep Femoral Vein Greater Saphenous Vein * Femoral Vein Popliteal Vein Small Saphenous Vein * Proximal Calf Veins (* superficial vessels) No popliteal fossa lesion was seen. Right Leg: Negative for DVT Left Leg: Positive for non-occluding DVT in the left EIV IMPRESSION: 1. THIS EXAMINATION IS NEGATIVE FOR DVT WITHIN THE RIGHT LEG. 2. NONOCCLUSIVE THROMBUS, LIKELY CHRONIC WITHIN THE LEFT LEG.
[2019-08-20] MEDS ORDERED: HEPARIN SODIUM,PORCINE 5,000 UNIT/ML 1 ML VIAL SQ SCH ×2 (16:00→21:00)
[2019-08-20] MEDS ORDERED: ACYCLOVIR SODIUM 500 MG in SODIUM CHLORIDE 0.9% 100 ML IVPB STA (17:06)
[2019-08-20] MEDS ORDERED: levETIRAcetam IV 500 MG in SODIUM CHLORIDE 0.9% 100 ML IVPB SCH (18:00)
[2019-08-20] MEDS ORDERED: POTASSIUM CHLORIDE ER 20 MEQ TAB.ER PO SCH (19:00)
[2019-08-20 20:22] VITALS: BP 114/78; PULSE 90; RESP 24; TEMP 98.4
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
[2019-08-20] MEDS ORDERED: ACYCLOVIR 200 MG CAP PO SCH (22:00)
[2019-08-21] MEDS ORDERED: AMPICILLIN-SULBACTAM 3 GM in SODIUM CHLORIDE 0.9% 100 ML IVPB SCH ×2
[2019-08-21] MEDS ORDERED: ACYCLOVIR SODIUM 500 MG in SODIUM CHLORIDE 0.9% 100 ML IVPB SCH (02:00)
[2019-08-21] MEDS ORDERED: PANTOPRAZOLE 40 MG/10 ML VIAL IVP SCH (09:00)
[2019-08-21] MEDS ORDERED: LIDOCAINE 5% PATCH TOPICAL SCH (09:00)
== END 2019-08-20 23:20 | disposition short-term general hospital (02) | DRG 871 ==
LOC: EC 16:32 → 2SICU 20:13
PROVIDERS: ADMIT Hospitalist; ATTEND Hospitalist
DX: A41.9 Sepsis, unspecified organism (principal); J69.0 Pneumonitis due to inhalation of food and vomit; E87.1 Hypo-osmolality and hyponatremia; F10.239 Alcohol dependence with withdrawal, unspecified; I69.954 Hemiplegia and hemiparesis following unspecified cerebrovascular disease affecting left non-dominant side; G20 Parkinson's disease; E83.42 Hypomagnesemia; E87.6 Hypokalemia; G40.909 Epilepsy, unspecified, not intractable, without status epilepticus; Z20.828 Contact with and (suspected) exposure to other viral communicable diseases; G43.909 Migraine, unspecified, not intractable, without status migrainosus; G89.29 Other chronic pain; I10 Essential (primary) hypertension; K21.9 Gastro-esophageal reflux disease without esophagitis; M10.9 Gout, unspecified; M19.91 Primary osteoarthritis, unspecified site; M47.812 Spondylosis without myelopathy or radiculopathy, cervical region; M25.511 Pain in right shoulder; M25.512 Pain in left shoulder; M54.5 Low back pain; M50.30 Other cervical disc degeneration, unspecified cervical region; R07.9 Chest pain, unspecified; Z88.6 Allergy status to analgesic agent; Z79.899 Other long term (current) drug therapy; Z91.81 History of falling; Z87.891 Personal history of nicotine dependence; Z87.442 Personal history of urinary calculi; Z86.718 Personal history of other venous thrombosis and embolism; Z90.49 Acquired absence of other specified parts of digestive tract; Z96.652 Presence of left artificial knee joint; Z83.3 Family history of diabetes mellitus
CPT/HCPCS: 36415; 70450; 71045; 71275; 72125; 80053; 81001; 83690; 83735; 83880; 84132; 84484; 85025; 85379; 85610; 85730; 87040; 87635; 93005; 93970; 96361; 96365; 96366; 96375; 96376; 99285

== ENCOUNTER 2019-09-01 17:28 | Inpatient (IN) | payer MEDICARE, OTHER ==
[2019-09-01] MEDS ORDERED: SODIUM CHLORIDE 0.9% 500 ML 500 ML IV STA (17:51)
[2019-09-01] MEDS ORDERED: MORPHINE SULFATE 4 MG/ML SYRINGE IVP STA (17:52)
[2019-09-01] MEDS ORDERED: ONDANSETRON 4 MG/2 ML VIAL IVP STA ×2 (17:52→20:49)
[2019-09-01] MEDS ORDERED: ACETAMINOPHEN TAB 325 MG TAB PO STA (17:52)
[2019-09-01 18:31] LABS: ALT 66 U/L (4-49); AST 113 U/L (17-59); African American GFR (CKD) >90 (>60 ml/min/1.73 sqM); Albumin 4.2 g/dL (3.5-5.0); Alkaline Phosphatase 165 U/L (38-126); Anion Gap 11 mmol/L; Blood Urea Nitrogen 7 mg/dL (9-20); Calcium 8.4 mg/dL (8.4-10.2); Carbon Dioxide 31 mmol/L (22-30); Chloride 89 mmol/L (98-107); Glucose 124 mg/dL (74-99); Non-African American GFR(CKD) >90 (>60 ml/min/1.73 sqM); Sodium 131 mmol/L (137-145); Total Bilirubin 0.9 mg/dL (0.2-1.3); Total Protein 7.7 g/dL (6.3-8.2)
[2019-09-01 18:35] LABS: INR 1.2 (<1.2)
[2019-09-01 18:36] LABS: Partial Thromboplastin Time 26.8 sec (22.0-30.0); Prothrombin Time 12.4 sec (9.0-12.0)
[2019-09-01 18:41] LABS: Basophils # (A) 0.1 k/uL (0-0.2); Basophils % (A) 1 %; Eosinophils # (A) 0.2 k/uL (0-0.7); Eosinophils % (A) 1 %; HCT 48.6 % (39.0-53.0); HGB 16.4 gm/dL (13.0-17.5); Lymphocytes % (A) 22 %; MCH 31.4 pg (25.0-35.0); MCHC 33.7 g/dL (31.0-37.0); MCV 93.4 fL (80.0-100.0); Mean Platelet Volume 7.8; Monocytes # (A) 0.8 k/uL (0-1.0); Monocytes % (A) 6 %; Neutrophils # (A) 9.5 k/uL (1.3-7.7); Neutrophils % (A) 69 %; Platelet Count 421 k/uL (150-450); RDW 14.4 % (11.5-15.5); WBC 13.7 k/uL (3.8-10.6)
[2019-09-01] MEDS ORDERED: POTASSIUM CHLORIDE ER 20 MEQ TAB.ER PO STA (19:01)
[2019-09-01] MEDS ORDERED: Magnesium Replacement Protocol 1 EACH MISC MISCELLANE PRN (19:03)
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
[2019-09-01] MEDS: MAGNESIUM SULFATE-D5W PMX 1 GM in DEXTROSE/WATER 1 100ML.BAG IVPB SCH ×3 (19:29→22:04)
--- NOTE | 2019-09-01 20:01 | CT ---
EXAMINATION TYPE: CT chest angio for PE with contrast and with 3-D reconstruction renderings DATE OF EXAM: 09/01/2019 COMPARISON: 08/19/2019 HISTORY: SOB, DIZZINESS, NEAR SYNCOPE CT DLP: 578.6 mGycm Automated exposure control for dose reduction was used. CONTRAST: CT Chest for pulmonary embolism performed with with IV Contrast, patient injected with 80 m L of Isovue 370. FINDINGS: LUNGS: The lungs are grossly clear, there is no concerning parenchymal mass or nodule identified. T here is no pleural effusion or pneumothorax seen. The tracheobronchial tree is patent. MEDIASTINUM: There is satisfactory enhancement of the pulmonary artery and its branches; there is no CT evidence for pulmonary embolism. No acute aortic findings. Coronary calcifications detected. No c ardiomegaly or pericardial effusion. There are no greater than 1 cm hilar or mediastinal lymph nodes. OTHER: Incidental prominent right upper quadrant varices noted, and the liver margin appears mildly scalloped, with caudate lobe prominence. 2.5 cm diameter simple left renal cyst noted. IMPRESSION: 1. Negative for pulmonary embolism. 2. Coronary calcifications noted.
[2019-09-01] MEDS ORDERED: LORazepam 2 MG/ML INJ IV STA (20:49)
[2019-09-01] MEDS ORDERED: ONDANSETRON 4 MG/2 ML VIAL IVP PRN (21:33)
[2019-09-01] MEDS ORDERED: NALOXONE 0.4 MG/ML 1 ML VIAL IV PRN (21:33)
[2019-09-01] MEDS ORDERED: ACETAMINOPHEN TAB 325 MG TAB PO PRN (21:33)
--- NOTE | 2019-09-01 22:04 | CT ---
EXAMINATION: CT brain wo con DATE AND TIME: 09/01/2019 9:50 PM CLINICAL INDICATION: PHH; Right arm weakness TECHNIQUE: Standard departmental protocol.; 1064.4; COMPARISON: 08/20/2019 FINDINGS: The calvarium is intact. There is no intracranial hemorrhage. There is no intracranial mass or mass effect. No definite new intra-axial or extra-axial attenuation defect. Previously seen encephalomalacia in the left temporoparietal region is redemonstrated and unchanged. The paranasal sinuses, middle ear cavities, and mastoid sinus air cells are clear. The orbits are unremarkable. IMPRESSION: NO ACUTE PROCESS.
[2019-09-01] MEDS ORDERED: HYDROmorphone 0.5 MG/0.5 ML SYRINGE IVP STA (22:44)
[2019-09-01] MEDS ORDERED: ALBUTEROL NEBULIZED 2.5 MG/3 ML INHALATION PRN (22:45)
[2019-09-01] MEDS ORDERED: ONDANSETRON 4 MG TAB PO PRN (22:45)
[2019-09-01] MEDS ORDERED: THIAMINE 100 MG/ML 2 ML VIAL IM STA (22:55)
[2019-09-01] MEDS ORDERED: LORazepam 2 MG/ML INJ IV PRN (22:55)
[2019-09-01] MEDS: SODIUM CHLORIDE 0.9% 1,000 ML IV SCH (23:03)
[2019-09-01] MEDS: MIRTAZAPINE 15 MG TAB PO SCH (23:06)
[2019-09-01] MEDS: THIAMINE 100 MG TAB PO SCH (23:09)
[2019-09-01 23:31] LABS: Amphetamine Screen,Urine Not Detected (NotDetected); Barbiturate Screen,Urine Not Detected (NotDetected); Benzodiazepines Screen,Urine Not Detected (NotDetected); Cocaine Screen,Urine Not Detected (NotDetected); Methadone Screen, Urine Not Detected (NotDetected); Opiate Screen,Urine Detected (NotDetected); Oxycodone Screen, Urine Not Detected (NotDetected); Phencyclidine Screen,Urine Not Detected (NotDetected); Tricyclic Antidepressant,Urine Not Detected (NotDetected); Urn Cannabinoid Scrn Detected (NotDetected)
[2019-09-02] MEDS: LORazepam 2 MG/ML INJ IV PRN ×7 (00:22→22:11)
[2019-09-02 02:51] LABS: Basophils # (A) 0.1 k/uL (0-0.2); Basophils % (A) 0 %; Eosinophils # (A) 0.1 k/uL (0-0.7); Eosinophils % (A) 1 %; HCT 46.3 % (39.0-53.0); HGB 15.3 gm/dL (13.0-17.5); Lymphocytes # (A) 2.1 k/uL (1.0-4.8); Lymphocytes % (A) 18 %; MCH 31.3 pg (25.0-35.0); MCHC 33.1 g/dL (31.0-37.0); MCV 94.5 fL (80.0-100.0); Mean Platelet Volume 7.7; Monocytes # (A) 0.7 k/uL (0-1.0); Monocytes % (A) 6 %; Neutrophils # (A) 8.7 k/uL (1.3-7.7); Neutrophils % (A) 74 %; Platelet Count 355 k/uL (150-450); RDW 14.4 % (11.5-15.5); WBC 11.9 k/uL (3.8-10.6)
[2019-09-02 02:59] LABS: ALT 57 U/L (4-49); AST 81 U/L (17-59); African American GFR (CKD) >90 (>60 ml/min/1.73 sqM); Albumin 3.6 g/dL (3.5-5.0); Alkaline Phosphatase 131 U/L (38-126); Anion Gap 9 mmol/L; Blood Urea Nitrogen 6 mg/dL (9-20); Calcium 8.3 mg/dL (8.4-10.2); Carbon Dioxide 33 mmol/L (22-30); Chloride 92 mmol/L (98-107); Glucose 113 mg/dL (74-99); Magnesium 1.8 mg/dL (1.6-2.3); Non-African American GFR(CKD) >90 (>60 ml/min/1.73 sqM); Potassium 3.2 mmol/L (3.5-5.1); Sodium 134 mmol/L (137-145)
[2019-09-02] MEDS: MORPHINE SULFATE 4 MG/ML SYRINGE IV PRN (03:20)
[2019-09-02] MEDS: PANTOPRAZOLE 40 MG TABLET PO SCH (06:14)
[2019-09-02] MEDS: THIAMINE 100 MG TAB PO SCH ×2 (06:14→17:32)
[2019-09-02] MEDS: SODIUM CHLORIDE 0.9% 1,000 ML IV SCH ×2 (06:15→19:17)
[2019-09-02] MEDS ORDERED: POTASSIUM CHLORIDE ER 20 MEQ TAB.ER PO STA (06:42)
[2019-09-02] MEDS ORDERED: Potassium Replacement Protocol 1 EACH MISC MISCELLANE PRN (06:42)
[2019-09-02] MEDS: FUROSEMIDE 40 MG TAB PO SCH (09:42)
[2019-09-02] MEDS: ALLOPURINOL 300 MG TAB PO SCH (09:42)
[2019-09-02] MEDS: amLODIPine 10 MG TAB PO SCH (09:42)
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
--- NOTE | 2019-09-02 14:20 | CONS ---
CONSULTATION CHIEF COMPLAINT: Chest pain. Ruben is a 59-year-old gentleman with history of ETOH abuse, hypertension, and chronic headaches who is on large doses of oxycodone, presented to the hospital actually complaining of headache, drooling, and numbness of his lips and along the way also complained of having had a syncope. He states that twice he passed out over the last 2 days. He denies cough, sputum, leg edema, shortness of breath, PND or orthopnea. There is no history of focal neurological deficits. At the time of my evaluation, he appears comfortable at rest and is free of symptoms. His EKG shows sinus tachycardia, left axis deviation and nonspecific ST-T wave changes. Patient's urine drug screen was positive for marijuana and opiates. Patient states that he drinks regularly and in fact was consuming excessive amounts of alcohol coming in. I believe patient's syncope is probably related to the multiple drugs that he is consuming and also the EtOH abuse. I will obtain a 2D echo to evaluate his LV function and wall motion. If those things look normal, we can treat him with optimal medical therapy for his problems and arrange for an outpatient stress test. The patient was in the hospital back in November of 2018 with lower back pain. PAST MEDICAL HISTORY: Significant for musculoskeletal pain, ETOH abuse, hypertension. CURRENT MEDICATIONS: Include Norvasc, Zofran, Prilosec, Lasix, magnesium, B12, Ventolin, and oxycodone. The patient is allergic to ASPIRIN. FAMILY HISTORY: Negative for premature coronary artery disease. SOCIAL HISTORY: Significant for smoking and ETOH abuse. Patient also uses marijuana. REVIEW OF SYSTEMS: HEENT: Significant for headache and numbness around his lips. CARDIAC: As described above. RESPIRATORY: As described above. GI: Negative. GENITOURINARY: Negative. ALLERGY/IMMUNOLOGY: Negative. SKIN: Negative. MUSCULOSKELETAL: Significant for chronic pain. PSYCHOSOCIAL: Negative. ENDOCRINE: Negative. DERM: Negative. CONSTITUTIONAL: Negative. RESEARCH COMPUTING SPECIALIST: Significant for syncope. PHYSICAL EXAM: Patient is afebrile. Heart rate is 106 beats per minute, blood pressure is 102/56, respiratory rate is 18, O2 saturation is 97% on 3 L. There is no jugular venous distention. Carotid upstroke is normal. Chest exam reveals good air entry bilaterally. Heart exam reveals first and second heart sounds. No gallop. No murmur. No rub. Abdomen is soft. Exam of extremities did not reveal any edema. Peripheral pulses are felt. EKG shows sinus tachycardia with left axis deviation. A CT scan of the brain was negative. CTA of the chest was negative for pulmonary embolism. There was coronary calcification noted. Troponins are negative. AST, ALT are elevated. Magnesium is 1.8. ASSESSMENT: 1. Syncope, rule out cardiac causes. 2. ETOH abuse. 3. Chronic headache and musculoskeletal pain. PLAN: Will obtain a 2D echo. If this looks normal from cardiac standpoint, we can discharge him home and arrange an outpatient stress test when his headache has resolved and we were able to put him through a stress test. Please keep his potassium between 4 and 4.5. I advised the patient to quit drinking. His syncope could very well be related to the ETOH abuse and intoxication. MMODL / IJN: [id number] /
[2019-09-02] MEDS: chlordiazePOXIDE 25 MG CAP PO SCH (20:38)
[2019-09-02] MEDS: MIRTAZAPINE 15 MG TAB PO SCH (20:38)
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
[2019-09-03] MEDS: SODIUM CHLORIDE 0.9% 1,000 ML IV SCH ×3 (04:18→16:29)
[2019-09-03] MEDS: PANTOPRAZOLE 40 MG TABLET PO SCH (05:08)
[2019-09-03] MEDS: THIAMINE 100 MG TAB PO SCH ×2 (05:08→16:26)
[2019-09-03 06:30] LABS: HCT 44.2 % (39.0-53.0); HGB 14.4 gm/dL (13.0-17.5); MCH 30.7 pg (25.0-35.0); MCHC 32.5 g/dL (31.0-37.0); MCV 94.4 fL (80.0-100.0); Mean Platelet Volume 7.7; Platelet Count 320 k/uL (150-450); RBC 4.68 m/uL (4.30-5.90); RDW 13.9 % (11.5-15.5); WBC 10.1 k/uL (3.8-10.6)
[2019-09-03 06:39] LABS: African American GFR (CKD) >90 (>60 ml/min/1.73 sqM); Anion Gap 7 mmol/L; Blood Urea Nitrogen 3 mg/dL (9-20); Carbon Dioxide 30 mmol/L (22-30); Chloride 99 mmol/L (98-107); Glucose 85 mg/dL (74-99); Magnesium 1.3 mg/dL (1.6-2.3); Non-African American GFR(CKD) >90 (>60 ml/min/1.73 sqM); Potassium 3.7 mmol/L (3.5-5.1); Sodium 136 mmol/L (137-145)
[2019-09-03] MEDS ORDERED: POTASSIUM CHLORIDE ER 20 MEQ TAB.ER PO STA (06:48)
[2019-09-03] MEDS: MAGNESIUM SULFATE-D5W PMX 1 GM in DEXTROSE/WATER 1 100ML.BAG IVPB SCH ×3 (06:53→09:18)
[2019-09-03] MEDS ORDERED: PROPOFOL 10 MG/ML 20 ML VIAL IV ONE (07:44)
[2019-09-03] MEDS ORDERED: LIDOCAINE 1% INJ 10MG/ML (20 ML MDV) ONE (07:44)
[2019-09-03] MEDS ORDERED: IV FLUID CONTINUATION 900 ML IV ONE (07:46)
--- NOTE | 2019-09-03 08:00 | P.OP ---
Date of Procedure: 09/03/19 Preoperative Diagnosis: Nausea, epigastric pain Postoperative Diagnosis: Mild antral gastritis Procedure(s) Performed: EGD Anesthesia: MAC Surgeon: Georgi Pugh Pathology: other (Antrum) Condition: stable Disposition: PACU Description of Procedure: The patient's placed on the endoscopy table lateral position. He received IV sedation. The gastroscope was oropharynx and passed in the esophagus and into the stomach. Scope then placed through the pylorus. The first and second portion of the duodenum appeared normal. The scope was brought back the antrum this appeared mildly inflamed. A biopsies performed. Scope was unretroflexed and remainder stomach appeared normal. The GE junction was at 47 is. There is no significant hiatal hernia. The distal esophagusAppeared normal. The proximal esophagus appeared normal. Scope withdrawn for patient.
[2019-09-03] MEDS: chlordiazePOXIDE 25 MG CAP PO SCH ×3 (08:23→20:08)
[2019-09-03] MEDS: FUROSEMIDE 40 MG TAB PO SCH (08:23)
[2019-09-03] MEDS: ALLOPURINOL 300 MG TAB PO SCH (08:23)
[2019-09-03] MEDS: amLODIPine 10 MG TAB PO SCH (08:23)
--- NOTE | 2019-09-03 09:38 | P.PN ---
Subjective Patient Ruben Sharp Seen by Dr. Govea yesterday, history of alcohol abuse hypertension who was admitted with headaches did he complained of headache numbness around his lips and possible syncope. He said he passed out twice over the last 2 days prior to admission Urine drug screen positive for opiates and marijuana He continues to drink in excess amounts He was advised regarding alcohol use CT of the chest was negative for pulmonary embolism. Duc calcifications were noted Twelve-lead ECG shows sinus tachycardia with normal ST segments CT of the brain did not show any abnormalities Since he had nausea and epigastric discomfort and an endoscopy was performed His antrum is inflamed White count normal hemoglobin normal low potassium of 3.2 and 3.7 Creatinine normal AST 81, ALP 57 and alkaline phosphatase 131 Coronavirus PCR undetectable Blood pressure 147/82 mmHg pulse rate 105, afebrile 98.3F normal respirations No JVD No lower extremity edema Normal heart sounds other than sinus tachycardia, elevated heart rates no murmurs Breath sounds are clear no rhonchi Impression History of alcohol abuse Hypertension Normal cardiac enzymes Suggest Add Inderal 80 mg by mouth daily and consider increasing to 120 mg by mouth daily Continue hypertension management Complete cessation from alcohol consumption. LFTs are abnormal The antral inflammation is understandable given his history of alcohol use. He is not anemic Treatment of hypomagnesemia and hypokalemia Impression the go home from a cardiac standpoint within 24-48 hours Objective - Vital Signs Vital signs: Vital Signs Temp 98.3 F 09/03/19 03:05 Pulse 105 H 09/03/19 03:05 Resp 18 09/03/19 03:05 BP 147/82 09/03/19 03:05 Pulse Ox 96 09/03/19 03:05 Intake & Output 09/02/19 09/03/19 09/03/19 18:59 06:59 18:59 Intake Total 240 150 Output Total 400 Balance -160 150 Weight 93.2 kg Intake: IV 150 Oral 240 Output: Urine 400 - Labs CBC & Chem 7: 09/03/19 05:59 09/03/19 05:59 Labs: Abnormal Lab Results - Last 24 Hours (Table) 09/03/19 Range/Units 05:59 Sodium 136 L (137-145) mmol/L BUN 3 L (9-20) mg/dL Creatinine 0.54 L (0.66-1.25) mg/dL Calcium 8.0 L (8.4-10.2) mg/dL Magnesium 1.3 L (1.6-2.3) mg/dL Microbiology - Last 24 Hours (Table) 09/01/19 18:09 Blood Culture - Preliminary Blood No Growth after 24 hours
--- NOTE | 2019-09-03 10:22 | P.PN ---
Progress Note - Text Progress Note Date: 09/03/19 The patient underwent EGD today. He has some mild gastritis. There is no evidence of any obstruction of his upper GI tract. Patient was placed on regular diet. He'll be discharged home per medical service.
[2019-09-03] MEDS: LORazepam 2 MG/ML INJ IV PRN ×4 (11:16→20:09)
[2019-09-03] MEDS: PROPRANOLOL LA 80 MG CAP.SA.24H PO SCH (11:17)
[2019-09-03 17:03] LABS: Appearance,Urine Clear (Clear); Bilirubin,Urine Negative (Negative); Blood,Urine Negative (Negative); Color,Urine Light Yellow; Glucose,Urine (UA) Negative (Negative); Ketones,Urine Negative (Negative); Leukocyte Esterase,Urine Negative (Negative); Nitrite,Urine Negative (Negative); Protein,Urine Negative (Negative); Specific Gravity,Urine 1.008 (1.001-1.035); Urobilinogen,Urine <2.0 mg/dL (<2.0)
--- NOTE | 2019-09-03 19:43 | PN ---
PROGRESS NOTE DATE OF SERVICE: 09/03/2019 This 59-year-old gentleman who was admitted with significant alcoholism, abdominal pain, chest pain, also had hypertension. Inderal was initiated by Cardiology today. The patient also had EGD by Dr. Pugh showed only mild gastritis. Patient being closely monitored at this time. PAST MEDICAL HISTORY: Reviewed. REVIEW OF SYSTEMS: CARDIOVASCULAR : As mentioned earlier. RESPIRATION as mentioned earlier. GI as mentioned earlier. no dysuria. CENTRAL NERVOUS SYSTEM: No numbness or weakness. CURRENT MEDICATIONS: Reviewed and include: 1. Tylenol 650 q.6h p.r.n. 2. Ventolin. 3. Zyloprim. 4. Norvasc. 5. Librium. 6. Lasix. 7. CIWA protocol. 8. Remeron. 9. Magnesium protocol. 10.Zofran. 11.OxyIR. 12.Protonix. 13.Inderal. 14.Vitamin B1. 15.Doses are reviewed. PHYSICAL EXAMINATION: The patient is alert and oriented times three. Pulse 109. Blood pressure 135/89. Respirations 18. Temperature 98.4, pulse ox 98% on room air. HEENT is conjunctivae normal. Oral mucosa moist. NECK is no jugular venous distention. No carotid bruit. No lymph node enlargement. CARDIOVASCULAR: S1, S2 muffled. RESPIRATION: Breath sounds diminished in the bases. A few scattered rhonchi. ABDOMEN: Soft, nontender. Mild diffuse discomfort in the epigastrium. No guarding. No rigidity. No mass. LEGS are no edema. No swelling. NERVOUS SYSTEM: No focal deficits. LABS: CBC within normal limits. Sodium 136. Lactic acid was 2.5 yesterday. ASSESSMENT: 1. Syncope, possibly vasovagal syncope. 2. Acute alcohol intoxication. 3. Abdominal pain, possible acute gastritis. 4. Chest pain, myocardial infarction ruled out. 5. History of gastroesophageal reflux disease. 6. Hyponatremia. 7. Hypokalemia. 8. Elevated lactic acid possibly secondary to alcoholism. 9. Increased AST/ALT, alcoholic hepatitis. 10.Increased WBC. 11.History of cerebrovascular accident, transient ischemic attack. 12.History of deep vein thrombosis. 13.History of gastroesophageal reflux disease. 14.Hypertension. 15.History of degenerative joint disease. 16.History of seizure disorder. 17.Chronic back pain. 18.History of seizures. 19.History of back surgery/degenerative joint disease. 20.Remote history of nicotine dependence. 21.History of THC. 22.FULL CODE. RECOMMENDATIONS AND DISCUSSION: This 59-year-old gentleman who presented with multiple complex medical issues, at this time, I recommend to continue current medications, management and symptomatic treatment. Continue with proton pump inhibitors. Symptomatic treatment. Otherwise, cardiology input appreciated and I would cut down the IV fluids. Continue with CIWA protocol and overall prognosis guarded because of multiple complex medical issues. I would also add DVT prophylaxis and supplement vitamins. Guarded prognosis. Further recommendations to follow. MMODL / IJN: [id number] /
[2019-09-03] MEDS: MIRTAZAPINE 15 MG TAB PO SCH (20:08)
[2019-09-03] MEDS: HEPARIN SODIUM,PORCINE 5,000 UNIT/ML 1 ML VIAL SQ SCH (20:08)
[2019-09-04] MEDS: LORazepam 2 MG/ML INJ IV PRN ×6 (05:56→19:19)
[2019-09-04] MEDS: PANTOPRAZOLE 40 MG TABLET PO SCH (05:58)
[2019-09-04] MEDS: THIAMINE 100 MG TAB PO SCH ×2 (05:58→15:19)
[2019-09-04 06:37] LABS: HCT 43.4 % (39.0-53.0); MCH 31.2 pg (25.0-35.0); MCHC 32.2 g/dL (31.0-37.0); MCV 96.7 fL (80.0-100.0); Mean Platelet Volume 7.8; Platelet Count 266 k/uL (150-450); RBC 4.49 m/uL (4.30-5.90); WBC 9.7 k/uL (3.8-10.6)
[2019-09-04 06:53] LABS: African American GFR (CKD) >90 (>60 ml/min/1.73 sqM); Anion Gap 7 mmol/L; Blood Urea Nitrogen 6 mg/dL (9-20); Calcium 8.1 mg/dL (8.4-10.2); Carbon Dioxide 30 mmol/L (22-30); Chloride 98 mmol/L (98-107); Glucose 87 mg/dL (74-99); Magnesium 1.4 mg/dL (1.6-2.3); Non-African American GFR(CKD) >90 (>60 ml/min/1.73 sqM); Potassium 3.8 mmol/L (3.5-5.1); Sodium 135 mmol/L (137-145)
[2019-09-04] MEDS ORDERED: POTASSIUM CHLORIDE ER 20 MEQ TAB.ER PO STA (06:58)
[2019-09-04] MEDS ORDERED: COSYNTROPIN 0.25 MG VIAL IVP ONE (08:00)
[2019-09-04] MEDS: amLODIPine 10 MG TAB PO SCH (08:10)
[2019-09-04] MEDS: MULTIVITAMINS, THERA 1 EACH TAB PO SCH (08:10)
[2019-09-04] MEDS: FOLIC ACID 1 MG TAB PO SCH (08:10)
[2019-09-04] MEDS: chlordiazePOXIDE 25 MG CAP PO SCH ×3 (08:10→22:11)
[2019-09-04] MEDS: CYANOCOBALAMIN 500 MCG TAB PO SCH (08:11)
[2019-09-04] MEDS: PROPRANOLOL LA 80 MG CAP.SA.24H PO SCH (08:11)
[2019-09-04] MEDS: HEPARIN SODIUM,PORCINE 5,000 UNIT/ML 1 ML VIAL SQ SCH ×2 (08:11→22:11)
[2019-09-04] MEDS: FUROSEMIDE 40 MG TAB PO SCH (08:11)
[2019-09-04] MEDS: MAGNESIUM OXIDE 400 MG TAB PO SCH (08:11)
[2019-09-04] MEDS: ALLOPURINOL 300 MG TAB PO SCH (08:11)
[2019-09-04] MEDS: SODIUM CHLORIDE 0.9% 1,000 ML IV SCH (08:12)
[2019-09-04] MEDS: MAGNESIUM SULFATE-D5W PMX 1 GM in DEXTROSE/WATER 1 100ML.BAG IVPB SCH ×3 (08:13→12:00)
--- NOTE | 2019-09-04 10:36 | P.PN ---
Progress Note - Text Progress Note Date: 09/04/19 The patient appears to be slightly confused this morning. He denies any dysphagia or abdominal pain. On exam his vital signs are stable. His abdomen soft.. Patient underwent EGD which showed minimal gastritis history. Patient will be discharged home per the medical service once he is clinically stable.
--- NOTE | 2019-09-04 13:39 | ECHOF ---
Referral Reason:lv fxn MEASUREMENTS -------- HEIGHT: 175.3 cm WEIGHT: 93.0 kg BP: 147/82 IVSd: 1.4 cm (0.6 - 1.1) LVIDd: 2.8 cm (3.9 - 5.3) LVPWd: 1.5 cm (0.6 - 1.1) IVSs: 1.9 cm LVIDs: 1.2 cm LVPWs: 1.5 cm RVIDd: 3.6 cm (< 3.3) LAESV Index (A-L): 12.20 ml/m Ao Diam: 4.0 cm (2.0 - 3.7) AV Cusp: 1.8 cm (1.5 - 2.6) MV E Charles: 0.45 m/s MV DecT: 110 ms MV A Charles: 0.76 m/s MV E/A Ratio: 0.59 RAP: 5.00 mmHg RVSP: 13.69 mmHg FINDINGS -------- Resting tachycardia (HR>100bpm). This was a technically difficult study with suboptimal apical views. The left ventricular size is normal. There is mild concentric left ventricular hypertrophy. Overa ll left ventricular systolic function is normal with, an EF between 55 - 60 %. The diastolic fillin g pattern is normal for the age of the patient 6.37. The right ventricle is mildly enlarged. Normal LA size by volume 22+/-6 ml/m2. The right atrium was not well visualized. 5.0mg of Lumason was utilized for enhancement of images Interatrial and interventricular septum intact. The aortic valve is trileaflet and appears structurally normal. There is no evidence of aortic regu rgitation. There is no evidence of aortic stenosis. There is trace mitral regurgitation. Trace tricuspid regurgitation present. There is no evidence of pulmonary hypertension. The right ventricular systolic pressure, as measured by Doppler, is 13.69mmHg. There is no pulmonic regurgitation present. The aortic root size is normal. IVC Not well visulized. There is no pericardial effusion. CONCLUSIONS -------- 1. Resting tachycardia (HR>100bpm). 2. This was a technically difficult study with suboptimal apical views. 3. The left ventricular size is normal. 4. There is mild concentric left ventricular hypertrophy. 5. Overall left ventricular systolic function is normal with, an EF between 55 - 60 %. 6. The diastolic filling pattern is normal for the age of the patient 6.37 7. The right ventricle is mildly enlarged. 8. Normal LA size by volume 22+/-6 ml/m2. 9. The right atrium was not well visualized. 10. 5.0mg of Lumason was utilized for enhancement of images 11. Interatrial and interventricular septum intact. 12. The aortic valve is trileaflet and appears structurally normal. 13. There is no evidence of aortic regurgitation. 14. There is no evidence of aortic stenosis. 15. There is trace mitral regurgitation. 16. Trace tricuspid regurgitation present. 17. There is no evidence of pulmonary hypertension. 18. The right ventricular systolic pressure, as measured by Doppler, is 13.69mmHg. 19. There is no pulmonic regurgitation present. 20. The aortic root size is normal. 21. IVC Not well visulized. 22. There is no pericardial effusion. INSIDE SALES COORDINATOR: Karen Ya RDCS
--- NOTE | 2019-09-04 21:02 | PN ---
PROGRESS NOTE DATE OF SERVICE: 09/04/2019 I am covering for Dr. Sanford. This 59-year-old gentleman admitted with significant alcoholism, abdominal pain, chest pain, also had hypertension. Patient needed significant amount of Ativan for CIWA protocol. Cardiology and Surgery following the patient closely. The patient underwent endoscopies. Otherwise, a 2D echo showed ejection fraction 55-60% at this time. PAST MEDICAL HISTORY: Reviewed. REVIEW OF SYSTEMS: Could not be taken, the patient is stuporous at this time. CURRENT MEDICATIONS: 1. Tylenol p.r.n. 2. Ventolin 2.5. 3. Zyloprim 300 mg daily. 4. Norvasc 10 mg. 5. Librium 25 mg p.o. t.i.d. 6. Vitamin B12 500 mcg p.o. daily. 7. Folic acid 1 mg p.o. daily. 8. Lasix 40 mg p.o. daily. 9. Heparin 5000 subcu b.i.d. 10.Ativan 1 mg p.r.n. 11.Magnesium oxide 400 mg. 12.Remeron 30 mg q.h.s. 13.P.r.n. medications Narcan and Zofran. 14.OxyIR. 15.Protonix. 16.Vitamin B1. PHYSICAL EXAM: Patient is alert, oriented x3. Pulse 74, blood pressure 141/75, respirations 16, temperature 98.6, pulse ox 94% on room air HEENT: Conjunctivae normal. Oral mucosa moist. NECK: No jugular venous distention. No lymph node enlargement. CARDIOVASCULAR: S1, S2. RESPIRATORY: Diminished breath sounds at the bases. A few scattered rhonchi and crackles. ABDOMEN: Soft, nontender. LEGS: No edema, no swelling. NERVOUS SYSTEM: Diffusely weak. LAB: Investigations at this time shows CBC within normal. Sodium 135, creatinine is 0.64, and magnesium is 1.4. ASSESSMENT: 1. Syncope, possibly vasovagal syncope. 2. Acute delirium tremens. 3. Acute alcohol intoxication. 4. Abdominal pain, possible acute gastritis status post EGD. 5. Chest pain, myocardial infarction ruled out, possibly musculoskeletal. 6. History of gastroesophageal reflux disease. 7. Hyponatremia. 8. Hypokalemia. 9. Elevated lactic acid possibly secondary to alcoholism on presentation. 10.Increased AST, ALT. 11.Alcoholic hepatitis. 12.Increased WBC. 13.History of cerebrovascular accident/transient ischemic attack. 14.History of deep vein thrombosis. 15.History of gastroesophageal reflux disease. 16.Hypertension. 17.History of degenerative joint disease. 18.History of seizure disorder. 19.Number chronic back pain. 20.History of back surgery. 21.History of nicotine dependence. 22.History of THC. 23.Hypomagnesemia. 24.FULL CODE. RECOMMENDATIONS AND DISCUSSION: In this 59-year-old gentleman who presented with multiple complex medical issues, we will monitor the patient closely, continue with CIWA protocol. Apparently patient is taking significant amount of alcohol as per the history. We will followed magnesium protocol for correction. I would also supplement regular dose of magnesium as well. Otherwise, repeat labs, symptomatic treatment, PT/OT evaluation. Guarded prognosis. Further recommendations to follow. I would also explore the possibility of ECF rehab because of significant difficulties with ambulation in this patient. MMSTIVENL / AMBROCION: [id number] /
[2019-09-04] MEDS: MIRTAZAPINE 15 MG TAB PO SCH (22:11)
[2019-09-05] MEDS: LORazepam 2 MG/ML INJ IV PRN ×3 (02:01→06:12)
[2019-09-05] MEDS: MORPHINE SULFATE 4 MG/ML SYRINGE IV PRN (02:24)
[2019-09-05] MEDS: SODIUM CHLORIDE 0.9% 1,000 ML IV SCH (02:36)
[2019-09-05] MEDS: PANTOPRAZOLE 40 MG TABLET PO SCH (06:13)
[2019-09-05] MEDS: THIAMINE 100 MG TAB PO SCH ×2 (06:13→16:26)
[2019-09-05 06:27] LABS: HCT 40.3 % (39.0-53.0); MCH 30.9 pg (25.0-35.0); MCHC 32.3 g/dL (31.0-37.0); MCV 95.8 fL (80.0-100.0); Mean Platelet Volume 8.3; Platelet Count 223 k/uL (150-450); RBC 4.21 m/uL (4.30-5.90); RDW 14.2 % (11.5-15.5); WBC 8.3 k/uL (3.8-10.6)
[2019-09-05 06:36] LABS: ALT 58 U/L (4-49); AST 105 U/L (17-59); African American GFR (CKD) >90 (>60 ml/min/1.73 sqM); Alkaline Phosphatase 101 U/L (38-126); Anion Gap 6 mmol/L; Blood Urea Nitrogen 6 mg/dL (9-20); Calcium 8.1 mg/dL (8.4-10.2); Carbon Dioxide 30 mmol/L (22-30); Chloride 99 mmol/L (98-107); Glucose 98 mg/dL (74-99); Magnesium 1.6 mg/dL (1.6-2.3); Non-African American GFR(CKD) >90 (>60 ml/min/1.73 sqM); Potassium 4.1 mmol/L (3.5-5.1); Sodium 135 mmol/L (137-145); Total Bilirubin 0.9 mg/dL (0.2-1.3); Total Protein 6.2 g/dL (6.3-8.2)
[2019-09-05] MEDS: PROPRANOLOL LA 80 MG CAP.SA.24H PO SCH (08:08)
[2019-09-05] MEDS: CYANOCOBALAMIN 500 MCG TAB PO SCH (08:08)
[2019-09-05] MEDS: ALLOPURINOL 300 MG TAB PO SCH (08:08)
[2019-09-05] MEDS: FUROSEMIDE 40 MG TAB PO SCH (08:08)
[2019-09-05] MEDS: amLODIPine 10 MG TAB PO SCH (08:08)
[2019-09-05] MEDS: FOLIC ACID 1 MG TAB PO SCH (08:08)
[2019-09-05] MEDS: MAGNESIUM OXIDE 400 MG TAB PO SCH (08:08)
[2019-09-05] MEDS: chlordiazePOXIDE 25 MG CAP PO SCH ×3 (08:08→21:41)
[2019-09-05] MEDS: HEPARIN SODIUM,PORCINE 5,000 UNIT/ML 1 ML VIAL SQ SCH ×2 (08:08→21:41)
[2019-09-05] MEDS: MULTIVITAMINS, THERA 1 EACH TAB PO SCH (08:08)
--- NOTE | 2019-09-05 11:22 | P.PN ---
Progress Note - Text Progress Note Date: 09/05/19 The patient is resting in his bed. He denies any nausea or abdominal pain. He is tolerating diet. On exam is lesser stable. His abdomen soft. Patient will be discharged home per the medical service. We will follow along until discharge.
--- NOTE | 2019-09-05 14:41 | P.PN ---
Subjective Progress Note Date: 09/05/19 Principal diagnosis: This is a 59-year-old male who was recently admitted with significant alcoholism, chest pain, hypertension, and abdominal pain and is being closely monitored. Patient recently underwent EGD with surgery showing antral gastritis. Patient is maintained on the CIWA protocol and will continue at this time. Patient is quite lethargic and stuporous and is currently sedated but arousable and responds appropriately to questions and commands. PT/OT to evaluate the patient and assess for possible rehab placement at an [facility]. During admission patient had CT of the brain done showing no intracranial hemorrhage, no intracranial mass along with previously seen encephalomalacia in the left temporoparietal region that was redemonstrated and unchanged. Review of systems: Unable to obtain as patient is sedated and stuporous Active Medications Acetaminophen (Tylenol Tab) 650 mg PO Q6HR PRN PRN Reason: Mild Pain or Fever > 100.5 Albuterol Sulfate (Ventolin Nebulized) 2.5 mg INHALATION RT-Q6H PRN PRN Reason: Shortness Of Breath Allopurinol (Zyloprim) 300 mg PO DAILY [facility] Last Admin: 09/05/19 08:08 Dose: 300 mg Documented by: Amlodipine Besylate (Norvasc) 10 mg PO DAILY [facility] Last Admin: 09/05/19 08:08 Dose: 10 mg Documented by: Chlordiazepoxide HCl (Librium) 25 mg PO TID [facility] Last Admin: 09/05/19 08:08 Dose: 25 mg Documented by: Cyanocobalamin (Vitamin B-12) 500 mcg PO DAILY [facility] Last Admin: 09/05/19 08:08 Dose: 500 mcg Documented by: Folic Acid (Folic Acid) 1 mg PO DAILY@1200 [facility] Last Admin: 09/05/19 08:08 Dose: 1 mg Documented by: Furosemide (Lasix) 40 mg PO DAILY [facility] Last Admin: 09/05/19 08:08 Dose: 40 mg Documented by: Heparin Sodium (Porcine) (Heparin) 5,000 unit SQ Q12HR [facility] Last Admin: 09/05/19 08:08 Dose: 5,000 unit Documented by: Sodium Chloride (Saline 0.9%) 1,000 mls @ 20 mls/hr IV .Q24H [facility] Last Admin: 09/05/19 02:36 Dose: Not Given Documented by: Lorazepam (Ativan) 1 mg IV Q2HR PRN PRN Reason: CIWA 8 or 9 Last Admin: 09/05/19 06:12 Dose: 1 mg Documented by: Lorazepam (Ativan) 1 mg IV Q1HR PRN PRN Reason: CIWA 10 to 15 Last Admin: 09/05/19 03:01 Dose: 1 mg Documented by: Magnesium Oxide (Mag-Ox) 400 mg PO DAILY [facility] Last Admin: 09/05/19 08:08 Dose: 400 mg Documented by: Mirtazapine (Remeron) 30 mg PO HS [facility] Last Admin: 09/04/19 22:11 Dose: 30 mg Documented by: Miscellaneous Information (Magnesium Per Protocol) 1 each MISCELLANE DAILY PRN; Protocol PRN Reason: Per Protocol Miscellaneous Information (Potassium Per Protocol) 1 each MISCELLANE DAILY PRN; Protocol PRN Reason: Per Protocol Morphine Sulfate (Morphine Sulfate (Inj)) 4 mg IV Q4HR PRN PRN Reason: Severe Pain Last Admin: 09/05/19 02:24 Dose: 4 mg Documented by: Multivitamins (Theragran) 1 each PO DAILY@1200 [facility] Last Admin: 09/05/19 08:08 Dose: 1 each Documented by: Naloxone HCl (Narcan) 0.2 mg IV Q2M PRN PRN Reason: Opioid Reversal Ondansetron HCl (Zofran) 4 mg IVP Q8HR PRN PRN Reason: Nausea And Vomiting Ondansetron HCl (Zofran) 8 mg PO TID PRN PRN Reason: Nausea Oxycodone HCl (Oxyir) 20 mg PO TID [facility] Last Admin: 09/05/19 08:08 Dose: 20 mg Documented by: Pantoprazole Sodium (Protonix) 40 mg PO DAILY@0730 [facility] Last Admin: 09/05/19 06:13 Dose: 40 mg Documented by: Propranolol HCl (Inderal La) 80 mg PO DAILY [facility] Last Admin: 09/05/19 08:08 Dose: 80 mg Documented by: Thiamine HCl (Vitamin B-1) 100 mg PO BID-W/MEALS [facility] Last Admin: 09/05/19 06:13 Dose: 100 mg Documented by: Objective - Vital Signs Vital signs: Vital Signs Temp 97.8 F 09/05/19 12:00 Pulse 62 09/05/19 12:00 Resp 18 09/05/19 12:00 BP 120/62 09/05/19 12:00 Pulse Ox 96 09/05/19 12:00 Intake & Output 09/04/19 09/05/19 09/05/19 18:59 06:59 18:59 Intake Total 1740 500 Output Total 300 300 Balance 1740 -300 200 Weight 99 kg Intake: IV 340 Invasive Line 2 10 Invasive Line 3 30 Magnesium Sulfate-D5w Pmx 300 1 gm In Dextrose/Water 1 100ml.bag @ 100 mls/hr IVPB Q1H DINORAH Rx#: [id number] Oral 1400 500 Output: Urine 300 300 - Exam Gen: This is a 59-year-old male, lethargic, asleep, but arousable, alert and oriented 2-3. Well-developed, well-nourished. Temp is 97.8F, pulse is 62, respirations are 18, blood pressure is 120/62, oxygen saturation is 96% on 2 L via nasal cannula. HEENT: Head is atraumatic, normocephalic. Pupils equal, round. Sclerae is anicteric. NECK: Supple. No JVD. No lymphadenopathy. No thyromegaly. LUNGS: Diminished breath sounds at the bases with a few scattered rhonchi and crackles noted. No intercostal retractions. HEART: S1, S2 are muffled ABDOMEN: Soft. Obese. Bowel sounds are present. No masses. No tenderness. EXTREMITIES: No pedal edema. No calf tenderness. NEUROLOGICAL: Patient is asleep but arousable, sedated, alert and oriented x2-3. Diffusely weak - Labs CBC & Chem 7: 09/05/19 06:10 09/05/19 06:10 Labs: Abnormal Lab Results - Last 24 Hours (Table) 09/05/19 09/05/19 Range/Units 06:10 06:10 RBC 4.21 L (4.30-5.90) m/uL Sodium 135 L (137-145) mmol/L BUN 6 L (9-20) mg/dL Creatinine 0.65 L (0.66-1.25) mg/dL Calcium 8.1 L (8.4-10.2) mg/dL AST 105 H (17-59) U/L ALT 58 H (4-49) U/L Total Protein 6.2 L (6.3-8.2) g/dL Albumin 3.0 L (3.5-5.0) g/dL Microbiology - Last 24 Hours (Table) 09/01/19 18:09 Blood Culture - Preliminary Blood No Growth after 72 hours Assessment and Plan Assessment: Syncope, possibly vasovagal syncope Acute delirium tremens Acute alcohol intoxication Abdominal pain, possible acute gastritis status post EGD Chest pain, myocardial infarction ruled out, possibly musculoskeletal History of gastroesophageal reflux disease hyponatremia Hypokalemia Elevated lactic acid possibly secondary to alcoholism, present on admission Increased AST, ALT Alcoholic hepatitis Increased WBC History of CVA, TIA History of deep vein thrombosis History of degenerative joint disease Hypertension History of seizure disorder History of chronic back pain History of back surgery History of nicotine dependence History of THC Hypomagnesemia Full code Recommendations and discussion: Recommend to continue current medications, management, and symptomatic treatment. PT/OT to evaluate the patient. Case management and social work consulted to assess for possible ECF placement. Continue to monitor closely for alcohol withdrawal and continue CIWA protocol. Will repeat a.m. labs. Magnesium today 1.6 and will continue with replacement protocol along with daily supplements. Further recommendations to follow. Due to multiple complex medical issues, prognosis is guarded.
[2019-09-05] MEDS: MIRTAZAPINE 15 MG TAB PO SCH (21:41)
[2019-09-06] MEDS: SODIUM CHLORIDE 0.9% 1,000 ML IV SCH ×2 (02:21→23:36)
[2019-09-06] MEDS: PANTOPRAZOLE 40 MG TABLET PO SCH (06:30)
[2019-09-06] MEDS: THIAMINE 100 MG TAB PO SCH ×2 (06:30→15:18)
[2019-09-06 08:32] LABS: Basophils # (A) 0.1 k/uL (0-0.2); Basophils % (A) 1 %; Eosinophils # (A) 0.3 k/uL (0-0.7); Eosinophils % (A) 3 %; HCT 41.8 % (39.0-53.0); HGB 13.2 gm/dL (13.0-17.5); Lymphocytes # (A) 2.1 k/uL (1.0-4.8); Lymphocytes % (A) 23 %; MCH 30.1 pg (25.0-35.0); MCHC 31.7 g/dL (31.0-37.0); MCV 94.9 fL (80.0-100.0); Mean Platelet Volume 8.1; Monocytes # (A) 1.3 k/uL (0-1.0); Monocytes % (A) 14 %; Neutrophils # (A) 5.1 k/uL (1.3-7.7); Neutrophils % (A) 57 %; Platelet Count 226 k/uL (150-450); RDW 14.1 % (11.5-15.5); WBC 9.1 k/uL (3.8-10.6)
[2019-09-06 08:51] LABS: ALT 48 U/L (4-49); AST 80 U/L (17-59); African American GFR (CKD) >90 (>60 ml/min/1.73 sqM); Albumin 3.3 g/dL (3.5-5.0); Alkaline Phosphatase 100 U/L (38-126); Anion Gap 9 mmol/L; Blood Urea Nitrogen 6 mg/dL (9-20); Calcium 8.8 mg/dL (8.4-10.2); Carbon Dioxide 29 mmol/L (22-30); Chloride 96 mmol/L (98-107); Glucose 106 mg/dL (74-99); Magnesium 1.3 mg/dL (1.6-2.3); Non-African American GFR(CKD) >90 (>60 ml/min/1.73 sqM); Potassium 4.1 mmol/L (3.5-5.1); Sodium 134 mmol/L (137-145); Total Bilirubin 1.1 mg/dL (0.2-1.3); Total Protein 6.5 g/dL (6.3-8.2)
[2019-09-06] MEDS: ALLOPURINOL 300 MG TAB PO SCH (09:02)
[2019-09-06] MEDS: MAGNESIUM OXIDE 400 MG TAB PO SCH (09:02)
[2019-09-06] MEDS: amLODIPine 10 MG TAB PO SCH (09:02)
[2019-09-06] MEDS: chlordiazePOXIDE 25 MG CAP PO SCH ×3 (09:02→21:31)
[2019-09-06] MEDS: HEPARIN SODIUM,PORCINE 5,000 UNIT/ML 1 ML VIAL SQ SCH ×2 (09:02→21:32)
[2019-09-06] MEDS: MULTIVITAMINS, THERA 1 EACH TAB PO SCH (09:03)
[2019-09-06] MEDS: PROPRANOLOL LA 80 MG CAP.SA.24H PO SCH (09:03)
[2019-09-06] MEDS: FOLIC ACID 1 MG TAB PO SCH (09:03)
[2019-09-06] MEDS: FUROSEMIDE 40 MG TAB PO SCH (09:03)
[2019-09-06] MEDS: CYANOCOBALAMIN 500 MCG TAB PO SCH (09:03)
[2019-09-06] MEDS: MAGNESIUM SULFATE-D5W PMX 1 GM in DEXTROSE/WATER 1 100ML.BAG IVPB SCH ×3 (11:59→15:22)
--- NOTE | 2019-09-06 12:01 | P.DS ---
Providers Date of admission: 09/01/19 20:38 Expected date of discharge: 09/06/19 Attending physician: Олег Sanford MD Consults: 09/01/19 21:34 Consult Physician Routine Consulting Provider: [facility] Consult Reason/Comments: Chest Pain; Syncope Do you want consulting provider notified?: Yes 09/01/19 22:45 Consult Physician Routine Consulting Provider: Georgi Pugh Consult Reason/Comments: N/V, abd pain x 4 days Do you want consulting provider notified?: Yes, Notify in am Primary care physician: Олег Sanford MD Hospital Course: Final Diagnoses: (1) Alcohol abuse, intoxication with DTs, resolved Current Visit: Yes Status: Acute Code(s): F10.10 - ALCOHOL ABUSE, UNCOMPLICATED SNOMED Code(s): 07779223 (2) GERD (gastroesophageal reflux disease). Status post EGD reporting gastritis Current Visit: Yes Status: Acute Code(s): K21.9 - GASTRO-ESOPHAGEAL REFLUX DISEASE WITHOUT ESOPHAGITIS SNOMED Code(s): 219551975 (3) Chronic back pain Current Visit: Yes Status: Acute Code(s): M54.9 - DORSALGIA, UNSPECIFIED; G89.29 - OTHER CHRONIC PAIN SNOMED Code(s): 344126096 (4) Opiate use Current Visit: Yes Status: Acute Code(s): F11.90 - OPIOID USE, UNSPECIFIED, UNCOMPLICATED SNOMED Code(s): 972637108 (5) Opiate use Current Visit: Yes Status: Acute Code(s): F11.90 - OPIOID USE, UNSPECIFIED, UNCOMPLICATED SNOMED Code(s): 383166666 (6) Chest pain. Acute coronary syndrome ruled out as per cardiology Current Visit: Yes Status: Acute Code(s): R07.9 - CHEST PAIN, UNSPECIFIED SNOMED Code(s): 12200654 (7) Altered mental status Current Visit: No Status: Acute Code(s): R41.82 - ALTERED MENTAL STATUS, UNSPECIFIED SNOMED Code(s): 407404129 (8) Numbness of lip, syncope, possibly vasovagal syncope secondary to polysubstance abuse Current Visit: Yes Status: Acute Code(s): R20.0 - ANESTHESIA OF SKIN SNOMED Code(s): 575248199 (9) hyperlipidemia ischemia (10) alcoholic hepatitis (11) THC use Hospital course:Rubne Sharp is a 59 yo M with PMH of GERD, alcohol abuse, chronic pain on home oxycodone who presented to the hospital after a syncopal event at home. He states he was drinking alcohol on the day of admission as well as using marijuana and his prescribed oxycodone. He stood up at the kitchen table and felt numbness around his lips, then passed out. He denies any change in vision, tinnitus, or vertigo. He does complain of chest and abdominal pain. He does not feel his chest pain is aggravated by any specific motion or food. It has been present for the past week or so but worse recently. He also complains of chronic abdominal pain, nausea and vomiting over the past few weeks. In the ED he was hypertensive, EKG and CTA negative, potassium 3.0, lactic acid and liver enzymes elevated. Evaluated by surgery, underwent EGD reporting mild antral gastritis. Evaluated by cardiology, acute coronary syndrome ruled out. Cleared by all consults for discharge. Patient will be discharged to subacute rehab today in a stable condition with guarded prognosis, pending PT evaluation/social work assistance. Gen: Sitting up in chair, alert and oriented 3. LUNGS: Diminished breath sounds at the bases. HEART: S1, S2 are muffled. ABDOMEN: Soft. Obese. Bowel sounds are present. No masses. No tenderness. NEUROLOGICAL: Cranial nerves II through XII grossly intact, no focal deficits. The impression and plan of care has been dictated as directed. : I performed a history and examination of this patient, discussed the same with the dictator. I agree with the dictator's note ,documented as a scribe. Any additional findings or plans will be noted. Patient Condition at Discharge: Stable Plan - Discharge Summary Discharge Rx Participant: Yes New Discharge Prescriptions: New Propranolol LA [Inderal LA] 80 mg PO DAILY #30 cap.sa.24h Thiamine [Vitamin B-1] 100 mg PO DAILY #30 tab Continue amLODIPine BESYLATE [Norvasc] 10 mg PO DAILY Furosemide [Lasix] 40 mg PO DAILY Omeprazole [PriLOSEC] 40 mg PO DAILY Allopurinol [Zyloprim] 300 mg PO DAILY Multivitamins, Thera [Multivitamin (formulary)] 1 tab PO DAILY Folic Acid 1 mg PO DAILY Cyanocobalamin [Vitamin B-12] 500 mcg PO DAILY oxyCODONE HCL [oxyCODONE HCL (IR)] 20 mg PO TID Ondansetron HCl [Zofran] 8 mg PO TID PRN PRN Reason: Nausea Mirtazapine 30 mg PO HS Albuterol Inhaler [Ventolin Hfa Inhaler] 2 puff INHALATION RT-Q6H PRN PRN Reason: Shortness Of Breath Magnesium Oxide 400 mg PO DAILY Discharge Medication List Furosemide [Lasix] 40 mg PO DAILY 03/07/15 [History] Omeprazole [PriLOSEC] 40 mg PO DAILY 03/07/15 [History] amLODIPine BESYLATE [Norvasc] 10 mg PO DAILY 03/07/15 [History] Allopurinol [Zyloprim] 300 mg PO DAILY 04/10/18 [History] Albuterol Inhaler [Ventolin Hfa Inhaler] 2 puff INHALATION RT-Q6H PRN 09/01/19 [History] Cyanocobalamin [Vitamin B-12] 500 mcg PO DAILY 09/01/19 [History] Folic Acid 1 mg PO DAILY 09/01/19 [History] Magnesium Oxide 400 mg PO DAILY 09/01/19 [History] Mirtazapine 30 mg PO HS 09/01/19 [History] Multivitamins, Thera [Multivitamin (formulary)] 1 tab PO DAILY 09/01/19 [History] Ondansetron HCl [Zofran] 8 mg PO TID PRN 09/01/19 [History] oxyCODONE HCL [oxyCODONE HCL (IR)] 20 mg PO TID 09/01/19 [History] Propranolol LA [Inderal LA] 80 mg PO DAILY #30 cap.sa.24h 09/06/19 [Rx] Thiamine [Vitamin B-1] 100 mg PO DAILY #30 tab 09/06/19 [Rx] Follow up Appointment(s)/Referral(s): Олег Sanford MD [Primary Care Provider] - 3 Days Ambulatory/Diagnostic Orders: Complete Blood Count w/diff [LAB.AMB] Time Frame: 3 Days, Location: None Selected Activity/Diet/Wound Care/Special Instructions: Pending magnesium replacement ,SW to verify ECF, Discharge Disposition: TRANSFER TO SNF/ECF
--- NOTE | 2019-09-06 12:50 | P.PN ---
Subjective Progress Note Date: 09/06/19 CHIEF COMPLAINT: Nausea vomiting HISTORY OF PRESENT ILLNESS: Patient is status post EGD. Patient examined at the bedside with Dr. Quiles. Patient denies abdominal pain. Tolerating diet without nausea or vomiting. PHYSICAL EXAM: VITAL SIGNS: Reviewed. GENERAL: Well-developed in no acute distress. HEENT: No sclera icterus. Extraocular movements grossly intact. Moist buccal mucosa. Head is atraumatic, normocephalic. ABDOMEN: Soft. Nondistended. Nontender. NEUROLOGIC: Alert and oriented. Cranial nerves II through XII grossly intact. ASSESSMENT: 1. Nausea and vomiting PLAN: Continue diet as tolerated Discharge per medicine Nurse practitioner note has been reviewed by physician. Signing provider agrees with the documented findings, assessment, and plan of care. Objective - Vital Signs Vital signs: Vital Signs Temp 97.6 F 09/06/19 09:01 Pulse 69 09/06/19 09:01 Resp 18 09/06/19 09:01 BP 112/78 09/06/19 09:01 Pulse Ox 95 09/06/19 09:01 Intake & Output 09/05/19 09/06/19 09/06/19 18:59 06:59 18:59 Intake Total 620 540 850 Output Total 1200 550 300 Balance -580 -10 550 Weight 99 kg Intake: IV 10 Invasive Line 3 10 Oral 620 540 840 Output: Urine 1200 200 300 Stool 350 Other: # Voids 1 - Labs CBC & Chem 7: 09/06/19 07:58 09/06/19 07:58 Labs: Abnormal Lab Results - Last 24 Hours (Table) 09/06/19 09/06/19 Range/Units 07:58 07:58 Monocytes # 1.3 H (0-1.0) k/uL Sodium 134 L (137-145) mmol/L Chloride 96 L (98-107) mmol/L BUN 6 L (9-20) mg/dL Creatinine 0.60 L (0.66-1.25) mg/dL Glucose 106 H (74-99) mg/dL Magnesium 1.3 L (1.6-2.3) mg/dL AST 80 H (17-59) U/L Albumin 3.3 L (3.5-5.0) g/dL Microbiology - Last 24 Hours (Table) 09/01/19 18:09 Blood Culture - Preliminary Blood No Growth after 96 hours
[2019-09-06] MEDS: MIRTAZAPINE 15 MG TAB PO SCH (21:31)
[2019-09-07 03:25] VITALS: RESP 20
[2019-09-07 07:56] VITALS: BP 105/66; PULSE 69; TEMP 98.6
[2019-09-07] MEDS ORDERED: Magnesium Replacement Protocol 1 EACH MISC MISCELLANE PRN (09:19)
--- NOTE | 2019-09-07 10:16 | P.PN ---
Subjective Progress Note Date: 09/07/19 CHIEF COMPLAINT: Nausea vomiting HISTORY OF PRESENT ILLNESS: Patient is status post EGD. Patient examined at the bedside. Patient denies abdominal pain. Tolerating diet without nausea or vomiting. PHYSICAL EXAM: VITAL SIGNS: Reviewed. GENERAL: Well-developed in no acute distress. HEENT: No sclera icterus. Extraocular movements grossly intact. Moist buccal mucosa. Head is atraumatic, normocephalic. ABDOMEN: Soft. Nondistended. Nontender. NEUROLOGIC: Alert and oriented. Cranial nerves II through XII grossly intact. ASSESSMENT: 1. Nausea and vomiting PLAN: Continue diet as tolerated Discharge per medicine Nurse practitioner note has been reviewed by physician. Signing provider agrees with the documented findings, assessment, and plan of care. Objective - Vital Signs Vital signs: Vital Signs Temp 98.6 F 09/07/19 07:00 Pulse 69 09/07/19 07:00 Resp 20 09/07/19 07:00 BP 105/66 09/07/19 07:00 Pulse Ox 90 L 09/07/19 07:00 Intake & Output 09/06/19 09/07/19 09/07/19 18:59 06:59 18:59 Intake Total 1367 480 Output Total 300 Balance 1067 480 Intake: IV 50 Invasive Line 3 20 Invasive Line 4 30 Oral 1317 480 Output: Urine 300 Other: # Voids 1 - Labs CBC & Chem 7: 09/06/19 07:58 09/06/19 07:58 Labs: Abnormal Lab Results - Last 24 Hours (Table) 09/07/19 Range/Units 08:29 Magnesium 1.5 L (1.6-2.3) mg/dL Microbiology - Last 24 Hours (Table) 09/01/19 18:09 Blood Culture - Preliminary Blood No Growth after 120 hours
[2019-09-07] MEDS: MAGNESIUM OXIDE 400 MG TAB PO SCH (10:26)
[2019-09-07] MEDS: ALLOPURINOL 300 MG TAB PO SCH (10:26)
[2019-09-07] MEDS: CYANOCOBALAMIN 500 MCG TAB PO SCH (10:26)
[2019-09-07] MEDS: THIAMINE 100 MG TAB PO SCH (10:26)
[2019-09-07] MEDS: PROPRANOLOL LA 80 MG CAP.SA.24H PO SCH (10:26)
[2019-09-07] MEDS: FUROSEMIDE 40 MG TAB PO SCH (10:26)
[2019-09-07] MEDS: PANTOPRAZOLE 40 MG TABLET PO SCH (10:26)
[2019-09-07] MEDS: amLODIPine 10 MG TAB PO SCH (10:26)
[2019-09-07] MEDS: HEPARIN SODIUM,PORCINE 5,000 UNIT/ML 1 ML VIAL SQ SCH (10:26)
[2019-09-07] MEDS: chlordiazePOXIDE 25 MG CAP PO SCH (10:26)
[2019-09-07] MEDS: MAGNESIUM SULFATE-D5W PMX 1 GM in DEXTROSE/WATER 1 100ML.BAG IVPB SCH (11:21)
[2019-09-07] MEDS: MULTIVITAMINS, THERA 1 EACH TAB PO SCH (12:28)
[2019-09-07] MEDS: FOLIC ACID 1 MG TAB PO SCH (12:28)
[2019-09-07] MEDS ORDERED: MAGNESIUM OXIDE 400 MG TAB PO SCH (16:00)
[2019-09-09] MEDS ORDERED: MAGNESIUM OXIDE 400 MG TAB PO SCH (09:00)
== END 2019-09-07 13:26 | DRG 897 ==
LOC: EC 17:28 → 3SCARD 20:38 → 4SSUR 09-06 15:39
PROVIDERS: ADMIT Family Medicine; ATTEND Family Medicine
PROC: 0DB78ZX Excision of Stomach, Pylorus, Via Natural or Artificial Opening Endoscopic, Diagnostic (ICD-10-PCS; principal; 2019-09-03 08:00)
DX: F10.220 Alcohol dependence with intoxication, uncomplicated (principal); E87.1 Hypo-osmolality and hyponatremia; Z11.59 Encounter for screening for other viral diseases; R55 Syncope and collapse; F10.231 Alcohol dependence with withdrawal delirium; K29.70 Gastritis, unspecified, without bleeding; G20 Parkinson's disease; G40.909 Epilepsy, unspecified, not intractable, without status epilepticus; E87.6 Hypokalemia; E83.42 Hypomagnesemia; K21.9 Gastro-esophageal reflux disease without esophagitis; I10 Essential (primary) hypertension; G89.29 Other chronic pain; M54.5 Low back pain; M10.9 Gout, unspecified; G47.9 Sleep disorder, unspecified; G43.909 Migraine, unspecified, not intractable, without status migrainosus; M19.90 Unspecified osteoarthritis, unspecified site; R00.0 Tachycardia, unspecified; R20.0 Anesthesia of skin; F12.90 Cannabis use, unspecified, uncomplicated; M79.18 Myalgia, other site; R07.89 Other chest pain; K70.10 Alcoholic hepatitis without ascites; E78.5 Hyperlipidemia, unspecified; E66.9 Obesity, unspecified; R41.82 Altered mental status, unspecified; Z68.32 Body mass index [BMI] 32.0-32.9, adult; Z79.899 Other long term (current) drug therapy; Z79.891 Long term (current) use of opiate analgesic; Z86.73 Personal history of transient ischemic attack (TIA), and cerebral infarction without residual deficits; Z91.81 History of falling; Z87.891 Personal history of nicotine dependence; Z87.442 Personal history of urinary calculi; Z86.718 Personal history of other venous thrombosis and embolism; Z90.49 Acquired absence of other specified parts of digestive tract; Z96.652 Presence of left artificial knee joint; Z98.890 Other specified postprocedural states; Z87.828 Personal history of other (healed) physical injury and trauma; Z88.6 Allergy status to analgesic agent; Z83.3 Family history of diabetes mellitus
CPT/HCPCS: 36415; 43239; 70450; 71275; 80048; 80053; 80306; 81003; 82533; 83605; 83690; 83735; 84484; 85025; 85027; 85610; 85730; 87040; 87635; 88305; 88342; 93005; 93306; 96361; 96365; 96366; 96375; 96376; 99285

== ENCOUNTER 2019-09-18 19:43 | Emergency (ER) | payer MEDICARE, OTHER ==
[2019-09-18 19:49] VITALS: RESP 18
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
--- NOTE | 2019-09-18 20:35 | CT ---
EXAMINATION TYPE: CT brain cspine wo con DATE OF EXAM: 09/18/2019 COMPARISON: 09/01/2019 HISTORY: fall. hx of prior head trauma. CT DLP: 1485.3 mGycm, Automated exposure control for dose reduction was used. CONTRAST: Patient injected with 0 mL of Isovue 300. CT of the brain is performed utilizing 3 mm thick sections through the posterior fossa and 3 mm thick sections through the remaining calvarium. Study is performed within 24 hours of arrival to the hospital. Her graft there is some soft tissue sw elling over the left occipital region. No abnormal hyperdensity is present to suggest an acute intracranial hemorrhage. No mass lesion is evident. No acute infarcts are evident. Postsurgical changes are present within the left temporal lobe region . Ex vacuo effect is present on the left lateral ventricle as well as some sulci. Large craniotomy is along the temporal parietal region on the left. Findings are stable from 09/01/2027 Ventricles and sulci are otherwise appropriate for the patient age. Paranasal sinuses and mastoid air cells within the [id number] are clear. IMPRESSIONS: 1. Postsurgical changes left temporal region. 2. No acute posttraumatic changes. 3. There is some superficial soft tissue swelling in the left occipital region. CT cervical spine. COMPARISON: None CT of the cervical spine is performed in the axial plane at 2 mm thick sections. Reconstructed image s in the coronal, and sagittal plane are reviewed on the computer. -Artifact limits the chest cervica l spine evaluation. No acute fractures are evident. Vertebral body alignment is normal. Disc height through the cervical spine. Small amount of posterior spurring is likely present C4-C5. Vertebral body heights are preserved. No spinal canal stenosis is evident. Some uncovertebral joint hypertrophy is contributing to bilateral foraminal stenosis. IMPRESSIONS: 1. Degenerative disc changes with loss of disc height. 2. No acute posttraumatic changes cervical spine. 3. There is some limitation due to motion through the cervical spine.
--- NOTE | 2019-09-18 20:40 | CT ---
EXAMINATION TYPE: CT lumbar spine wo con DATE OF EXAM: 09/18/2019 COMPARISON: 10/15/2018 HISTORY: fall CT DLP: 2116.6 mGycm Contrast: None TECHNIQUE: CT of the lumbar spine is performed on a spiral scan at 3 mm thick sections . Reconstructed images are performed in the coronal and sagittal planes. FINDINGS: T12-L1: No focal disc herniation or significant disc bulge is evident. No spinal canal stenosis or neural foraminal stenosis is present. L1-L2: Mild disc bulge is present with anterior thecal sac flattening. No AP spinal canal stenosis pr esent. Neural foramen are patent. L2-L3: Mild broad-based disc bulge is present with anterior thecal sac flattening. Congenitally short pedicles are present. AP spinal canal stenosis is not identified. Some superior endplate Schmorl's n ode formation is evident. L3-L4: Broad-based disc bulge is present with anterior thecal sac flattening. Facet hypertrophy with ligamentum flavum laxity is present. This is contributing to spinal canal stenosis at this level. Sev ere bilateral foraminal stenosis is present. Pedicle screws are present L4. L4-L5: Fixation screws and rods cause limitation causing beam hardening artifact. Obvious stenosis is not identified. There is loss of disc height to this level. Foramen appear patent. L5-S1: Some degenerative disc changes present. No spinal canal stenosis is identified. The main artif act causes some limitation. Vertebral alignment appears normal. IMPRESSION: 1. Spinal canal stenosis L3-4 may be slightly progressive over the interval. 2. Chronic changes within the lumbar spine and postsurgical changes otherwise appear stable over the interval.
[2019-09-18 21:54] VITALS: BP 136/68; PULSE 78; TEMP 97.9
== END 2019-09-18 21:54 | disposition home or self-care (01) ==
LOC: EC 19:43
DX: S09.90XA Unspecified injury of head, initial encounter (principal); F10.129 Alcohol abuse with intoxication, unspecified; S39.012A Strain of muscle, fascia and tendon of lower back, initial encounter; K21.9 Gastro-esophageal reflux disease without esophagitis; I10 Essential (primary) hypertension; Z79.899 Other long term (current) drug therapy; Z88.6 Allergy status to analgesic agent; Z86.718 Personal history of other venous thrombosis and embolism; Z86.73 Personal history of transient ischemic attack (TIA), and cerebral infarction without residual deficits; Z87.891 Personal history of nicotine dependence; W18.09XA Striking against other object with subsequent fall, initial encounter
CPT/HCPCS: 70450; 72125; 72131; 99284

== ENCOUNTER 2019-10-17 17:23 | Emergency (ER) | payer MEDICARE, OTHER ==
[2019-10-17] MEDS ORDERED: ONDANSETRON 4 MG/2 ML VIAL IVP STA (17:45)
[2019-10-17] MEDS ORDERED: SODIUM CHLORIDE 0.9% 1,000 ML IV STA (17:45)
[2019-10-17] MEDS ORDERED: LORazepam 2 MG/ML INJ IV STA ×2 (17:46→19:11)
[2019-10-17 17:56] LABS: Basophils # (A) 0.1 k/uL (0-0.2); Basophils % (A) 1 %; Eosinophils # (A) 0.2 k/uL (0-0.7); Eosinophils % (A) 2 %; HCT 43.3 % (39.0-53.0); HGB 14.3 gm/dL (13.0-17.5); Lymphocytes # (A) 3.5 k/uL (1.0-4.8); Lymphocytes % (A) 45 %; MCH 29.1 pg (25.0-35.0); Mean Platelet Volume 7.8; Monocytes # (A) 0.7 k/uL (0-1.0); Monocytes % (A) 9 %; Neutrophils # (A) 3.2 k/uL (1.3-7.7); Neutrophils % (A) 41 %; Platelet Count 206 k/uL (150-450); RDW 15.3 % (11.5-15.5); WBC 7.9 k/uL (3.8-10.6)
[2019-10-17 18:07] LABS: INR 1.1 (<1.2); Partial Thromboplastin Time 24.8 sec (22.0-30.0); Prothrombin Time 11.5 sec (9.0-12.0)
[2019-10-17 18:09] LABS: ALT 42 U/L (4-49); AST 81 U/L (17-59); African American GFR (CKD) >90 (>60 ml/min/1.73 sqM); Albumin 4.4 g/dL (3.5-5.0); Alcohol 31 mg/dL; Alkaline Phosphatase 123 U/L (38-126); Amylase 32 U/L (30-110); Anion Gap 14 mmol/L; Blood Urea Nitrogen 5 mg/dL (9-20); Calcium 8.5 mg/dL (8.4-10.2); Carbon Dioxide 21 mmol/L (22-30); Chloride 100 mmol/L (98-107); Glucose 114 mg/dL (74-99); Non-African American GFR(CKD) >90 (>60 ml/min/1.73 sqM); Potassium 3.5 mmol/L (3.5-5.1); Sodium 135 mmol/L (137-145); Total Bilirubin 1.1 mg/dL (0.2-1.3); Total Protein 7.6 g/dL (6.3-8.2)
[2019-10-17 18:15] LABS: MCV 88.2 fL (80.0-100.0)
[2019-10-17] MEDS ORDERED: MAGNESIUM SULFATE-D5W PMX 1 GM in DEXTROSE/WATER 1 100ML.BAG IVPB ONE (18:41)
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
[2019-10-17] MEDS ORDERED: MAGNESIUM OXIDE 400 MG TAB PO STA (18:51)
--- NOTE | 2019-10-17 18:56 | XR ---
EXAMINATION TYPE: XR chest 2V DATE OF EXAM: 10/17/2019 COMPARISON: 08/20/2019 INDICATION: Chest pain TECHNIQUE: Frontal and lateral views of the chest are obtained. FINDINGS: The heart size is normal. The pulmonary vasculature is normal. The lungs are clear. IMPRESSION: 1. No acute pulmonary process.
[2019-10-17 19:56] VITALS: BP 118/72; PULSE 93; RESP 16; TEMP 98.5
== END 2019-10-17 19:10 | disposition home or self-care (01) ==
LOC: EC 17:23
DX: E83.42 Hypomagnesemia (principal); F10.239 Alcohol dependence with withdrawal, unspecified; R00.0 Tachycardia, unspecified; R42 Dizziness and giddiness; K21.9 Gastro-esophageal reflux disease without esophagitis; I10 Essential (primary) hypertension; M19.90 Unspecified osteoarthritis, unspecified site; G40.909 Epilepsy, unspecified, not intractable, without status epilepticus; G20 Parkinson's disease; I69.354 Hemiplegia and hemiparesis following cerebral infarction affecting left non-dominant side; M10.9 Gout, unspecified; Z87.442 Personal history of urinary calculi; Z88.6 Allergy status to analgesic agent; Z79.899 Other long term (current) drug therapy; Z90.49 Acquired absence of other specified parts of digestive tract; Z96.652 Presence of left artificial knee joint; Z87.891 Personal history of nicotine dependence; Y90.1 Blood alcohol level of 20-39 mg/100 ml
CPT/HCPCS: 36415; 93005; 83880; 80053; 82150; 83690; 83735; 84484; 85025; 85610; 85730; 71046; 99285; 96374; 96375; 96361; G0480; J2060; J2405; 80320

== ENCOUNTER 2019-12-28 11:55 | Inpatient (IN) | payer MEDICARE, OTHER ==
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
[2019-12-28] MEDS ORDERED: HYDROmorphone 1 MG/ML 1 ML SYRINGE IVP STA (13:00)
[2019-12-28] MEDS ORDERED: ONDANSETRON 4 MG/2 ML VIAL IVP STA (13:00)
[2019-12-28 13:21] LABS: Basophils # (A) 0.1 k/uL (0-0.2); Basophils % (A) 1 %; Eosinophils # (A) 0.2 k/uL (0-0.7); Eosinophils % (A) 2 %; HCT 53.1 % (39.0-53.0); HGB 17.2 gm/dL (13.0-17.5); Lymphocytes # (A) 2.8 k/uL (1.0-4.8); Lymphocytes % (A) 32 %; MCH 29.2 pg (25.0-35.0); MCHC 32.3 g/dL (31.0-37.0); MCV 90.2 fL (80.0-100.0); Mean Platelet Volume 7.2; Monocytes # (A) 1.1 k/uL (0-1.0); Monocytes % (A) 12 %; Neutrophils # (A) 4.4 k/uL (1.3-7.7); Neutrophils % (A) 51 %; Platelet Count 257 k/uL (150-450); RBC 5.88 m/uL (4.30-5.90); RDW 15.9 % (11.5-15.5); WBC 8.7 k/uL (3.8-10.6)
[2019-12-28 13:41] LABS: ALT 95 U/L (4-49); AST 121 U/L (17-59); African American GFR (CKD) >90 (>60 ml/min/1.73 sqM); Albumin 4.8 g/dL (3.5-5.0); Alkaline Phosphatase 91 U/L (38-126); Anion Gap 11 mmol/L; Blood Urea Nitrogen 10 mg/dL (9-20); C Reactive Protein 8.4 mg/L (<10.0); Calcium 9.2 mg/dL (8.4-10.2); Carbon Dioxide 28 mmol/L (22-30); Chloride 102 mmol/L (98-107); Glucose 94 mg/dL (74-99); Non-African American GFR(CKD) >90 (>60 ml/min/1.73 sqM); Potassium 4.6 mmol/L (3.5-5.1); Sodium 141 mmol/L (137-145); Total Bilirubin 0.8 mg/dL (0.2-1.3); Total Protein 8.4 g/dL (6.3-8.2)
[2019-12-28 14:12] LABS: Erythrocyte Sedimentation Rate 7 mm/hr (0-15)
[2019-12-28] MEDS ORDERED: HYDROmorphone 0.5 MG/0.5 ML SYRINGE IVP STA (15:53)
[2019-12-28] MEDS ORDERED: HYDROmorphone 0.5 MG/0.5 ML SYRINGE IVP PRN (16:36)
[2019-12-28] MEDS ORDERED: PIPERACILLIN-TAZOBACTAM 3.375 GM in SODIUM CHLORIDE 0.9% 100 ML IVPB STA (16:36)
[2019-12-28] MEDS ORDERED: NALOXONE 0.4 MG/ML 1 ML VIAL IV PRN (16:36)
[2019-12-28] MEDS: SODIUM CHLORIDE 0.9% 1,000 ML IV SCH (17:21)
[2019-12-28] MEDS: HYDROmorphone 1 MG/ML 1 ML SYRINGE IVP PRN (19:45)
[2019-12-28] MEDS: QUEtiapine 100 MG TAB PO SCH (21:03)
[2019-12-28] MEDS: OXcarbazepine 150 MG TAB PO SCH (21:03)
[2019-12-28] MEDS: ONDANSETRON 4 MG/2 ML VIAL IVP PRN (21:03)
[2019-12-28] MEDS: PIPERACILLIN-TAZOBACTAM 3.375 GM in SODIUM CHLORIDE 0.9% 100 ML IVPB SCH (23:36)
[2019-12-29] MEDS: SODIUM CHLORIDE 0.9% 1,000 ML IV SCH (05:36)
[2019-12-29] MEDS: HYDROmorphone 1 MG/ML 1 ML SYRINGE IVP PRN ×4 (05:36→19:40)
[2019-12-29] MEDS: PIPERACILLIN-TAZOBACTAM 3.375 GM in SODIUM CHLORIDE 0.9% 100 ML IVPB SCH (08:04)
[2019-12-29] MEDS: allopurinoL 300 MG TAB PO SCH (08:04)
[2019-12-29] MEDS: amLODIPine 10 MG TAB PO SCH (08:04)
[2019-12-29] MEDS: PANTOPRAZOLE 40 MG TABLET PO SCH (08:04)
[2019-12-29] MEDS: ONDANSETRON 4 MG/2 ML VIAL IVP PRN ×2 (08:49→19:54)
[2019-12-29 10:04] LABS: African American GFR (CKD) >90 (>60 ml/min/1.73 sqM); Anion Gap 9 mmol/L; Blood Urea Nitrogen 9 mg/dL (9-20); Calcium 8.7 mg/dL (8.4-10.2); Carbon Dioxide 30 mmol/L (22-30); Chloride 98 mmol/L (98-107); Glucose 132 mg/dL (74-99); Non-African American GFR(CKD) >90 (>60 ml/min/1.73 sqM); Potassium 3.4 mmol/L (3.5-5.1); Sodium 137 mmol/L (137-145)
[2019-12-29] MEDS ORDERED: METOCLOPRAMIDE 5 MG/ML 2 ML VIAL IVP PRN (12:48)
[2019-12-29] MEDS: HYDROcodone/APAP 7.5-325MG 1 EACH TAB PO PRN ×2 (13:02→21:55)
[2019-12-29] MEDS ORDERED: VANCOMYCIN IV PER PHARMACY 1 EACH MISC MISCELLANE PRN (14:05)
[2019-12-29 14:22] VITALS: BMI 31.0
[2019-12-29] MEDS: VANCOMYCIN 1,500 MG in SODIUM CHLORIDE 0.9% 250 ML IVPB SCH ×2 (14:52→23:10)
[2019-12-29] MEDS: GABAPENTIN 300 MG CAP PO SCH ×2 (16:58→21:55)
[2019-12-29] MEDS: OXcarbazepine 150 MG TAB PO SCH (21:55)
[2019-12-29] MEDS: QUEtiapine 100 MG TAB PO SCH (21:55)
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
[2019-12-30] MEDS: SODIUM CHLORIDE 0.9% 1,000 ML IV SCH ×4 (00:02→16:26)
[2019-12-30 06:16] LABS: Basophils # (A) 0.1 k/uL (0-0.2); Basophils % (A) 1 %; Eosinophils # (A) 0.1 k/uL (0-0.7); Eosinophils % (A) 2 %; HGB 14.6 gm/dL (13.0-17.5); Lymphocytes # (A) 1.4 k/uL (1.0-4.8); Lymphocytes % (A) 21 %; MCH 29.4 pg (25.0-35.0); MCHC 32.5 g/dL (31.0-37.0); MCV 90.3 fL (80.0-100.0); Mean Platelet Volume 7.3; Monocytes # (A) 0.9 k/uL (0-1.0); Monocytes % (A) 13 %; Neutrophils % (A) 61 %; Platelet Count 166 k/uL (150-450); RBC 4.99 m/uL (4.30-5.90); RDW 15.7 % (11.5-15.5); WBC 6.6 k/uL (3.8-10.6)
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
[2019-12-30 09:05] LABS: Anion Gap 9.6 mmol/L (4.00-12.00); Calcium 8.7 mg/dL (8.7-10.3); Carbon Dioxide 29.4 mmol/L (21.6-31.8); Non-African American GFR(CKD) 101.9 (60.0-200.0); Potassium 3.6 mmol/L (3.5-5.5)
[2019-12-30] MEDS: PANTOPRAZOLE 40 MG TABLET PO SCH (09:14)
[2019-12-30] MEDS: allopurinoL 300 MG TAB PO SCH (09:14)
[2019-12-30] MEDS: amLODIPine 10 MG TAB PO SCH (09:14)
[2019-12-30] MEDS: GABAPENTIN 300 MG CAP PO SCH ×3 (09:14→21:46)
[2019-12-30] MEDS: HYDROmorphone 1 MG/ML 1 ML SYRINGE IVP PRN ×3 (09:14→19:24)
[2019-12-30] MEDS: VANCOMYCIN 1,500 MG in SODIUM CHLORIDE 0.9% 250 ML IVPB SCH ×2 (09:15→16:25)
[2019-12-30] MEDS: HYDROcodone/APAP 7.5-325MG 1 EACH TAB PO PRN ×2 (11:43→19:58)
[2019-12-30] MEDS ORDERED: ACETAMINOPHEN IV (For NPO) 1,000 MG in EMPTY BAG 1 BAG IVPB ONE (14:23)
[2019-12-30] MEDS ORDERED: diphenhydrAMINE 50 MG/ML 1 ML VIAL IVP STA (14:24)
--- NOTE | 2019-12-30 14:28 | P.PN ---
Subjective Progress Note Date: 12/30/19 Ruben Sharp is a 59 yo M with hx migraine s/p brain surgery, alcohol abuse who presented tot he ED complaining of worsening R dorsal foot pain and bullae. He denies any specific trigger, no abrasions or lacerations and no new exposures. He complains that over the past two days he developed increasing se nsitivity to the dorsum of his foot and then noticed new bullae spring up. He denies any fever, chills or lesions anywhere else on his body. On presentation he was tachycardic, T 98.4, WBC 8.7, CRP 8.4, lactic 3.0. 12/30/2019 evaluated by infectious disease, antibiotic adjusted to vancomycin. Creatinine 0.7 .cultures pending .Affected site improving. Denies chest pain, palpitations or shortness of breath. Denies lightheadedness, dizziness or focal deficits. Afebrile, normal WBC. Objective - Vital Signs Vital signs: Vital Signs Temp 98.1 F 12/30/19 13:00 Pulse 98 12/30/19 13:00 Resp 20 12/30/19 13:00 BP 154/87 12/30/19 13:00 Pulse Ox 95 12/30/19 13:00 Intake & Output 12/29/19 12/30/19 12/30/19 18:59 06:59 18:59 Intake Total 1740 500 Output Total 1650 Balance 1740 -1150 Weight 95.254 kg Intake: Intake, IV Titration 1140 Amount Piperacillin-Tazobactam 3 100 .375 gm In Sodium Chloride 0.9% 100 ml @ 25 mls/hr IVPB Q8HR [facility] Rx# :[id number] Sodium Chloride 0.9% 1, 1040 000 ml @ 130 mls/hr IV . Q7H42M [facility] Rx#:[id number] Oral 600 500 Output: Urine 1650 Other: Voiding Method Urinal Urinal Urinal # Voids 3 3 3 - Exam General: well nourished, well developed, NAD. Vitals reviewed Eyes: PERRL, EOMI, conjunctiva normal HENT: normocephalic, mucus membranes moist Neck: supple, no JVD Lungs: normal respiratory effort, no wheezes or rales CV: Regular rate and rhythm, no murmur. Peripheral pulses 2+ Abdomen: soft, nondistended, no organomegaly, positive bowel sounds Skin: warm and dry. R dorsum of foot with multiple discrete bullae largest of which is 2x1.5 cm. Some ruptured with underlying granulation tissue. Decreasing tenderness, erythema. No edema. Neuro: A&Ox3, normal mood and affect - Labs CBC & Chem 7: 12/30/19 05:23 12/30/19 05:23 Labs: Abnormal Lab Results - Last 24 Hours (Table) 12/30/19 12/30/19 Range/Units 05:23 05:23 RDW 15.7 H (11.5-15.5) % BUN 7.0 L (9.0-27.0) mg/dL BUN/Creatinine Ratio 10.00 L (12.00-20.00) Ratio Microbiology - Last 24 Hours (Table) 12/29/19 Unknown Gram Stain - Preliminary Foot - Right Wound Culture - Preliminary 12/28/19 17:15 Blood Culture - Preliminary Blood No Growth after 24 hours 12/29/19 Unknown Anaerobic Culture - Preliminary Foot - Right Assessment and Plan Assessment: (1) Bullous rash Current Visit: Yes Status: Acute Code(s): R21 - RASH AND OTHER NONSPECIFIC SKIN ERUPTION SNOMED Code(s): 8455842 (2) Cellulitis of right foot in a patient with history of MRSA, cultures pending Current Visit: Yes Status: Acute Code(s): L03.115 - CELLULITIS OF RIGHT LOWER LIMB SNOMED Code(s): 532281182 (3) Alcohol abuse Current Visit: No Status: Acute Code(s): F10.10 - ALCOHOL ABUSE, UNCOMPLICATED SNOMED Code(s): 76218308 (4) Seizure disorder Current Visit: No Status: Acute Code(s): G40.909 - EPILEPSY, UNSP, NOT INTRACTABLE, WITHOUT STATUS EPILEPTICUS SNOMED Code(s): 942570728 (5) chronic migraine (6) hypertension Plan: Continue current medication regime ,monitoring and symptomatic treatment. Continue IV antibiotics as per ID. Close monitoring of renal function with repeat labs ordered for a.m. Cultures pending. Maintain gabapentin for pain management. Magnesium, IV Tylenol, Benadryl for headache in addition to Trileptal and Seroquel. The impression and plan of care has been dictated as directed. : I performed a history and examination of this patient, discussed the same with the dictator. I agree with the dictator's note ,documented as a scribe. Any additional findings or plans will be noted.
[2019-12-30] MEDS ORDERED: MAGNESIUM SULFATE-D5W PMX 1 GM in DEXTROSE/WATER 1 100ML.BAG IVPB ONE (14:30)
--- NOTE | 2019-12-30 16:51 | PN ---
PROGRESS NOTE DATE OF SERVICE: 12/30/2019 REASON FOR FOLLOWUP: Right foot cellulitis. INTERVAL HISTORY: The patient is currently afebrile. The patient did mention overall improvement of pain to his right foot dorsum area. The redness has decreased. No new blister has been noticed. The previous blister is currently drying out. No drainage. No chest pain. No cough. No abdominal pain or diarrhea. PHYSICAL EXAMINATION: Blood pressure 154/87, pulse of 98, temperature 98.1. He is 95% on room air. General description is a middle-aged male lying in bed in no distress. RESPIRATORY SYSTEM: Unlabored breathing. Clear to auscultation anteriorly. HEART: S1, S2. Regular rate and rhythm. ABDOMEN: Soft. No tenderness. Right foot dorsum did have some superficial which is drying out. Redness has decreased. No drainage. LABS: Hemoglobin is 14.6, white count 6.6, BUN of 7, creatinine 0.7. Cultures so far pending. Blood culture negative. DIAGNOSTIC IMPRESSION AND PLAN: Patient with right foot blisters and cellulitis. Culture so far pending. Patient is covered with vancomycin; to continue while waiting for the culture to finalize and monitor his clinical course closely. Continue with supportive care. MMODL / IJN: [id number] /
[2019-12-30] MEDS: ONDANSETRON 4 MG/2 ML VIAL IVP PRN (20:19)
[2019-12-30] MEDS: OXcarbazepine 150 MG TAB PO SCH (20:20)
[2019-12-30] MEDS: QUEtiapine 100 MG TAB PO SCH (20:20)
[2019-12-30] MEDS ORDERED: VANCOMYCIN TROUGH DUE 1 EACH MISC MISCELLANE ONE (22:00)
[2019-12-31] MEDS: SODIUM CHLORIDE 0.9% 1,000 ML IV SCH ×4 (01:15→17:51)
[2019-12-31] MEDS: VANCOMYCIN 1,500 MG in SODIUM CHLORIDE 0.9% 250 ML IVPB SCH ×3 (01:53→17:50)
[2019-12-31] MEDS: PANTOPRAZOLE 40 MG TABLET PO SCH (07:55)
[2019-12-31] MEDS: allopurinoL 300 MG TAB PO SCH (07:56)
[2019-12-31] MEDS: amLODIPine 10 MG TAB PO SCH (07:56)
[2019-12-31] MEDS: GABAPENTIN 300 MG CAP PO SCH ×3 (07:56→21:05)
[2019-12-31] MEDS: HYDROmorphone 1 MG/ML 1 ML SYRINGE IVP PRN ×5 (07:59→22:34)
[2019-12-31] MEDS ORDERED: VANCOMYCIN TROUGH DUE 1 EACH MISC MISCELLANE ONE (09:00)
[2019-12-31 09:45] LABS: African American GFR (CKD) >90 (>60 ml/min/1.73 sqM); Anion Gap 8 mmol/L; Blood Urea Nitrogen 4 mg/dL (9-20); Calcium 8.9 mg/dL (8.4-10.2); Carbon Dioxide 30 mmol/L (22-30); Chloride 100 mmol/L (98-107); Glucose 149 mg/dL (74-99); Non-African American GFR(CKD) >90 (>60 ml/min/1.73 sqM); Potassium 3.5 mmol/L (3.5-5.1); Sodium 138 mmol/L (137-145)
[2019-12-31] MEDS: HYDROcodone/APAP 7.5-325MG 1 EACH TAB PO PRN ×2 (10:58→18:48)
[2019-12-31] MEDS: ONDANSETRON 4 MG/2 ML VIAL IVP PRN (15:42)
--- NOTE | 2019-12-31 16:40 | PN ---
PROGRESS NOTE DATE OF SERVICE: 12/31/2019 REASON FOR FOLLOWUP: Right foot cellulitis. INTERVAL HISTORY: The patient is currently afebrile. Patient is breathing comfortably. Complaining of pain to the right foot. No worsening though but no significant improvement. No chest pain, shortness of breath or cough. No abdominal pain or diarrhea. PHYSICAL EXAMINATION: Blood pressure 145/86, pulse of 92, temperature 98.3. He is 95% on room air. General description is a middle-aged male up in the bed in no distress. Respiratory system: Unlabored breathing, clear to auscultation anteriorly. Heart S1, S2. Regular rate and rhythm. Abdomen soft, no tenderness. Right foot with superficial ulceration drying out from a ruptured blister. Minimal redness. No drainage. LABS: BUN of 4, creatinine 0.60. Vancomycin trough 14.2. Culture so far negative. DIAGNOSTIC IMPRESSION AND PLAN: Patient with right foot dorsum pressure ulceration from the possible ruptured blister with concern for cellulitis with no significant improvement. We will obtain a CT to make sure no evidence of any deep abscess. Keep the patient on vancomycin. Also we will order some rheumatologic workup. Continue supportive care. MMODL / IJN: [id number] /
[2019-12-31 17:24] LABS: C Reactive Protein 25.8 mg/L (<10.0)
--- NOTE | 2019-12-31 17:34 | CT ---
EXAMINATION TYPE: CT foot RT w con DATE OF EXAM: 12/31/2019 COMPARISON: None. HISTORY: Abscess. Focal pain and swelling. CT DLP: 216.9 mGycm Automated exposure control for dose reduction was used. CONTRAST: Performed with IV Contrast, patient injected with 100 mL of Isovue 300. FINDINGS: There is moderate diffuse soft tissue swelling and subcutaneous edema greatest laterally and along th e dorsal surface hindfoot and midfoot region. No well-formed fluid collection or drainable abscess is noted. There is mild to moderate narrowing throughout the hindfoot and midfoot structures. Normal sinus tars i fat is seen. There is flexion of the toes noted. There is advanced narrowing with subchondral cysti c change at first metatarsophalangeal joint. There is varus positioning at the second through fifth m etatarsophalangeal joints. There is subchondral cystic change in the distal fibula. Ankle mortise symmetry is preserved. There i s soft tissue vascular calcification noted. No acute fracture or dislocation. No suspicious bony dest ruction. IMPRESSION: As above. No well-formed fluid collection or drainable abscess.
--- NOTE | 2019-12-31 18:09 | P.PN ---
Subjective Progress Note Date: 12/31/19 Principal diagnosis: Cellulitis right foot/history of MRSA Alcohol abuse 59 yo M with hx migraine s/p brain surgery, alcohol abuse who presented tot he ED complaining of worsening R dorsal foot pain and bullae. He denies any specific trigger, no abrasions or lacerations and no new exposures. He complains that over the past two days he developed increasing sensitivity to the dorsum of his foot and then noticed new bullae spring up. He denies any fever, chills or lesions anywhere else on his body. On presentation he was tachycardic, T 98.4, WBC 8.7, CRP 8.4, lactic 3.0. Objective - Vital Signs Vital signs: Vital Signs Temp 98.3 F 12/31/19 11:51 Pulse 92 12/31/19 11:51 Resp 20 12/31/19 11:51 BP 145/86 12/31/19 11:51 Pulse Ox 95 12/31/19 11:51 Intake & Output 12/30/19 12/31/19 12/31/19 18:59 06:59 18:59 Intake Total 3000 1290 Output Total 1500 Balance 1500 1290 Intake: Intake, IV Titration 1290 Amount Sodium Chloride 0.9% 1, 1040 000 ml @ 130 mls/hr IV . Q7H42M [facility] Rx#:[id number] Vancomycin 1,500 mg In 250 Sodium Chloride 0.9% 250 ml @ 125 mls/hr IVPB Q8H [facility] Rx#:[id number] Oral 3000 Output: Urine 1500 Other: Voiding Method Urinal Toilet Toilet # Voids 3 1 - Exam PHYSICAL EXAMINATION: GENERAL: The patient is alert and oriented x3, not in any acute distress. Well developed, well nourished. HEENT: Pupils are round and equally reacting to light. EOMI. No scleral icterus. No conjunctival pallor. Normocephalic, atraumatic. No pharyngeal erythema. No thyromegaly. CARDIOVASCULAR: S1 and S2 present. No murmurs, rubs, or gallops. PULMONARY: Chest is clear to auscultation, no wheezing or crackles. ABDOMEN: Soft, nontender, nondistended, normoactive bowel sounds. No palpable organomegaly. MUSCULOSKELETAL: No joint swelling or deformity. EXTREMITIES: No cyanosis, clubbing, or pedal edema. NEUROLOGICAL: Gross neurological examination did not reveal any focal deficits. SKIN: No rashes. - Labs CBC & Chem 7: 12/30/19 05:23 12/31/19 08:45 Labs: Abnormal Lab Results - Last 24 Hours (Table) 12/31/19 Range/Units 08:45 BUN 4 L (9-20) mg/dL Creatinine 0.60 L (0.66-1.25) mg/dL Glucose 149 H (74-99) mg/dL Microbiology - Last 24 Hours (Table) 12/29/19 Unknown Gram Stain - Final Foot - Right Wound Culture - Final 12/28/19 17:15 Blood Culture - Preliminary Blood No Growth after 48 hours Assessment and Plan Assessment: 1. Bullous rash; resolved 2. Cellulitis right foot/history of MRSA; patient remains on IV antibiotics; IDs following and will be making final recommendations on antibiotics once final cultures are available 3. EtOH abuse; counseling done 4. Chronic migraine; Trileptal 09/11/1949 milligrams by mouth daily at bedtime 5. Hypertension; amlodipine 10 mg daily CODE STATUS; full code
[2019-12-31] MEDS: OXcarbazepine 150 MG TAB PO SCH (19:29)
[2019-12-31] MEDS: QUEtiapine 100 MG TAB PO SCH (19:29)
[2019-12-31 23:32] LABS: Rheumatoid Factor, Qnt <4 IU/mL (0-15)
[2020-01-01] MEDS: HYDROcodone/APAP 7.5-325MG 1 EACH TAB PO PRN ×3 (00:02→19:33)
[2020-01-01] MEDS: HYDROmorphone 1 MG/ML 1 ML SYRINGE IVP PRN ×5 (02:14→23:02)
[2020-01-01] MEDS: VANCOMYCIN 1,500 MG in SODIUM CHLORIDE 0.9% 250 ML IVPB SCH ×2 (02:14→09:15)
[2020-01-01] MEDS: SODIUM CHLORIDE 0.9% 1,000 ML IV SCH ×4 (03:10→23:03)
[2020-01-01] MEDS: allopurinoL 300 MG TAB PO SCH (07:13)
[2020-01-01] MEDS: PANTOPRAZOLE 40 MG TABLET PO SCH (07:13)
[2020-01-01] MEDS: GABAPENTIN 300 MG CAP PO SCH ×3 (07:13→21:05)
[2020-01-01] MEDS: amLODIPine 10 MG TAB PO SCH (07:13)
[2020-01-01] MEDS: ONDANSETRON 4 MG/2 ML VIAL IVP PRN (14:48)
--- NOTE | 2020-01-01 15:03 | P.PN ---
Subjective Progress Note Date: 01/01/20 Principal diagnosis: Cellulitis right foot/history of MRSA Alcohol abuse 59 yo M with hx migraine s/p brain surgery, alcohol abuse who presented tot he ED complaining of worsening R dorsal foot pain and bullae. He denies any specific trigger, no abrasions or lacerations and no new exposures. He complains that over the past two days he developed increasing sensitivity to the dorsum of his foot and then noticed new bullae spring up. He denies any fever, chills or lesions anywhere else on his body. On presentation he was tachycardic, T 98.4, WBC 8.7, CRP 8.4, lactic 3.0. 01/01/2020 Patient is seen and evaluated in room at bedside; continues to complain of uncontrolled pain of right foot; patient has shallow ulcerations on right foot dorsum from ruptured blisters; concern for cellulitis around the blistering area; patient has not shown significant improvement with IV antibiotics; IDs on board and recommending CT of the foot to rule out any deep abscess; patient to continue with IV vancomycin at this time; rheumatologic workup has been sent Objective - Vital Signs Vital signs: Vital Signs Temp 98.7 F 01/01/20 04:46 Pulse 85 01/01/20 08:00 Resp 18 01/01/20 08:00 BP 144/81 01/01/20 04:46 Pulse Ox 91 L 01/01/20 04:46 Intake & Output 12/31/19 01/01/20 01/01/20 18:59 06:59 18:59 Intake Total 1290 500 Output Total 1500 3000 Balance -210 -2500 Intake: Intake, IV Titration 1290 Amount Sodium Chloride 0.9% 1, 1040 000 ml @ 130 mls/hr IV . Q7H42M [facility] Rx#:[id number] Vancomycin 1,500 mg In 250 Sodium Chloride 0.9% 250 ml @ 125 mls/hr IVPB Q8H [facility] Rx#:[id number] Oral 500 Output: Urine 1500 3000 Other: Voiding Method Toilet Toilet Toilet # Voids 1 3 - Exam PHYSICAL EXAMINATION: GENERAL: The patient is alert and oriented x3, not in any acute distress. Well developed, well nourished. HEENT: Pupils are round and equally reacting to light. EOMI. No scleral icterus. No conjunctival pallor. Normocephalic, atraumatic. No pharyngeal erythema. No thyromegaly. CARDIOVASCULAR: S1 and S2 present. No murmurs, rubs, or gallops. PULMONARY: Chest is clear to auscultation, no wheezing or crackles. ABDOMEN: Soft, nontender, nondistended, normoactive bowel sounds. No palpable organomegaly. MUSCULOSKELETAL: No joint swelling or deformity. EXTREMITIES: No cyanosis, clubbing, or pedal edema. NEUROLOGICAL: Gross neurological examination did not reveal any focal deficits. SKIN: No rashes. - Labs CBC & Chem 7: 12/30/19 05:23 12/31/19 08:45 Labs: Abnormal Lab Results - Last 24 Hours (Table) 12/31/19 Range/Units 08:45 C-Reactive Protein 25.8 H (<10.0) mg/L Microbiology - Last 24 Hours (Table) 12/28/19 17:15 Blood Culture - Preliminary Blood No Growth after 72 hours 12/29/19 Unknown Anaerobic Culture - Preliminary Foot - Right 12/29/19 Unknown Gram Stain - Final Foot - Right Wound Culture - Final Assessment and Plan Assessment: 1. Bullous rash; resolved 2. Cellulitis right foot/history of MRSA; patient remains on IV antibiotics; IDs following and will be making final recommendations on antibiotics once final cultures are available 3. EtOH abuse; counseling done 4. Chronic migraine; Trileptal 09/11/1949 milligrams by mouth daily at bedtime 5. Hypertension; amlodipine 10 mg daily CODE STATUS; full code
--- NOTE | 2020-01-01 16:46 | PN ---
PROGRESS NOTE DATE OF SERVICE: 01/01/2020 REASON FOR FOLLOWUP: Right foot cellulitis. INTERVAL HISTORY: Patient is currently afebrile. The patient is breathing comfortably. Still complaining of discomfort to the right foot and some redness, minimally improved with current antibiotic therapy. Denies having any chest pain. No shortness of breath or cough. No nausea, vomiting or diarrhea. PHYSICAL EXAMINATION: Blood pressure 147/90 with a pulse of 73, temperature 98.8. He is 99% on room air. General description is a middle-aged male lying in bed in no distress. Respiratory system: Unlabored breathing. Clear to auscultation anteriorly. Heart S1, S2. Regular rate and rhythm. Abdomen soft, no tenderness. The right foot did have wounds that are drying out and has minimal redness, some swelling. LABS: BUN of 4, creatinine 0.60. CRP 25.8. Vanco level is 14.[address] did show some cellulitis, but no abscess. DIAGNOSTIC IMPRESSION AND PLAN: Patient with right foot cellulitis with blister formation, possible component of PAD in this patient who did have significant history of smoking. May benefit from vascular surgery evaluation. With no resistant bacteria growing in the local culture, we will switch him to cefazolin 2 grams q.8 hours and will monitor clinical course closely. MMODL / IJN: [id number] /
[2020-01-01] MEDS: QUEtiapine 100 MG TAB PO SCH (21:05)
[2020-01-01] MEDS: OXcarbazepine 150 MG TAB PO SCH (21:05)
[2020-01-02] MEDS: SODIUM CHLORIDE 0.9% 1,000 ML IV SCH ×4 (04:29→23:08)
[2020-01-02] MEDS: GABAPENTIN 300 MG CAP PO SCH ×4 (07:30→22:32)
[2020-01-02] MEDS: allopurinoL 300 MG TAB PO SCH (07:30)
[2020-01-02] MEDS: amLODIPine 10 MG TAB PO SCH (07:30)
[2020-01-02] MEDS: PANTOPRAZOLE 40 MG TABLET PO SCH (07:30)
[2020-01-02] MEDS: HYDROmorphone 1 MG/ML 1 ML SYRINGE IVP PRN ×4 (07:38→23:36)
[2020-01-02] MEDS ORDERED: VANCOMYCIN TROUGH DUE 1 EACH MISC MISCELLANE ONE (09:00)
--- NOTE | 2020-01-02 11:17 | P.PN ---
Subjective Progress Note Date: 01/02/20 Ruben hSarp is a 59 yo M with hx migraine s/p brain surgery, alcohol abuse who presented tot he ED complaining of worsening R dorsal foot pain and bullae. He denies any specific trigger, no abrasions or lacerations and no new exposures. He complains that over the past two days he developed increasing se nsitivity to the dorsum of his foot and then noticed new bullae spring up. He denies any fever, chills or lesions anywhere else on his body. On presentation he was tachycardic, T 98.4, WBC 8.7, CRP 8.4, lactic 3.0. 12/30/2019 evaluated by infectious disease, antibiotic adjusted to vancomycin. Creatinine 0.7 .cultures pending .Affected site improving. Denies chest pain, palpitations or shortness of breath. Denies lightheadedness, dizziness or focal deficits. Afebrile, normal WBC. 01/02/2020 minimal improvement on IV antibiotics. Cultures currently reporting no growth/no anaerobes. Antibiotics converted to cefazolin as per ID. afebrile, normal WBC. CRP elevated. Foot CT reported cellulitis with no abscess. Creatinine 0.6. Complains of right foot discomfort. Denies chest pain, pa lpitations or shortness of breath. Objective - Vital Signs Vital signs: Vital Signs Temp 98.1 F 01/02/20 04:48 Pulse 94 01/02/20 04:48 Resp 18 01/02/20 04:48 BP 131/76 01/02/20 04:48 Pulse Ox 93 L 01/02/20 04:48 Intake & Output 01/01/20 01/02/20 01/02/20 18:59 06:59 18:59 Intake Total 1290 2150 720 Output Total 1500 Balance -210 2150 720 Intake: Intake, IV Titration 1290 950 Amount Sodium Chloride 0.9% 1, 1040 900 000 ml @ 130 mls/hr IV . Q7H42M [facility] Rx#:[id number] Vancomycin 1,500 mg In 250 Sodium Chloride 0.9% 250 ml @ 125 mls/hr IVPB Q8H [facility] Rx#:[id number] ceFAZolin 2 gm In Sodium 50 Chloride 0.9% 50 ml @ 100 mls/hr IVPB Q8HR [facility] Rx# :[id number] Oral 1200 720 Output: Urine 1500 Other: Voiding Method Toilet Toilet # Voids 3 1 - Exam General: Sitting up in bed, NAD. Vitals reviewed Eyes: PERRL, EOMI, conjunctiva normal HENT: normocephalic, oral mucosa moist Neck: supple, no JVD Lungs: normal respiratory effort, no wheezes or rales CV: Regular rate and rhythm, no murmur. Peripheral pulses 2+ Abdomen: soft, nondistended, no organomegaly, positive bowel sounds Skin: warm and dry. R dorsum of foot with multiple bullious wounds/popped blisters with surrounding erythema and tenderness Neuro: A&Ox3, normal mood and affect Microbiology 12/28/19 17:15 Blood Blood Culture - Preliminary No Growth after 96 hours 12/29/19 Unknown Foot - Right Anaerobic Culture - Preliminary 12/29/19 Unknown Foot - Right Gram Stain - Final 12/29/19 Unknown Foot - Right Wound Culture - Final - Labs CBC & Chem 7: 12/30/19 05:23 12/31/19 08:45 Labs: Microbiology - Last 24 Hours (Table) 12/28/19 17:15 Blood Culture - Preliminary Blood No Growth after 96 hours Assessment and Plan Assessment: (1) Bullous rash Current Visit: Yes Status: Acute Code(s): R21 - RASH AND OTHER NONSPECIFIC SKIN ERUPTION SNOMED Code(s): 9404274 (2) Cellulitis of right foot with blister formation in a patient with history of MRSA, cultures pending. Possible arterial insufficiency Current Visit: Yes Status: Acute Code(s): L03.115 - CELLULITIS OF RIGHT LOWE R LIMB SNOMED Code(s): 876507343 (3) Alcohol abuse Current Visit: No Status: Acute Code(s): F10.10 - ALCOHOL ABUSE, UNCOMPLICATED SNOMED Code(s): 79898353 (4) Seizure disorder Current Visit: No Status: Acute Code(s): G40.909 - EPILEPSY, UNSP, NOT INTRA CTABLE, WITHOUT STATUS EPILEPTICUS SNOMED Code(s): 124695148 (5) chronic migraine (6) hypertension Plan: Continue current medication regime ,monitoring and symptomatic treatment. Arterial ultrasound ordered. Vascular surgery consulted .IV antibiotics as per ID. Follow cultures closely. Gabapentin for pain management. The impression and plan of care has been dictated as directed. : I performed a history and examination of this patient, discussed the same with the dictator. I agree with the dictator's note ,documented as a scribe. Any additional findings or plans will be noted.
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
[2020-01-02 15:24] LABS: C-ANCA <1:20 Titer (<1:20)
--- NOTE | 2020-01-02 16:13 | PN ---
PROGRESS NOTE DATE OF SERVICE: 01/02/2020. REASON FOR FOLLOWUP: Right foot cellulitis. INTERVAL HISTORY: The patient is currently afebrile. Patient is breathing comfortably. Has been complaining of headache, no worsening pain to the right foot. No chest pain. No shortness of breath. No cough. No abdominal pain. PHYSICAL EXAMINATION: Blood pressure 149/70 with a pulse of 85, temperature 99.2. He is 95% on room air. General description is a middle-aged male, lying in bed in no distress. RESPIRATORY SYSTEM: Unlabored breathing, clear to auscultation anteriorly. HEART: S1, S2. Regular rate and rhythm. ABDOMEN: Soft, no tenderness. Right foot wound has dried out. Still has some redness. No drainage. DIAGNOSTIC IMPRESSION AND PLAN: Patient with right foot blisters and those have dried out. Currently with open wound with some secondary cellulitis, concern likely from the underlying anterior insufficiency for which Vascular Surgery has been consulted. The patient is covered with cefazolin to continue and will monitor his clinical course closely. MMODL / IJN: [id number] /
[2020-01-02 17:33] LABS: Glucose,Whole Blood 145 mg/dL (75-99)
[2020-01-02 17:41] LABS: Non-African American GFR(CKD) 101.9 (60.0-200.0)
[2020-01-02 20:13] VITALS: PULSE 85
[2020-01-02] MEDS: OXcarbazepine 150 MG TAB PO SCH (21:04)
[2020-01-02] MEDS: QUEtiapine 100 MG TAB PO SCH (21:04)
[2020-01-02] MEDS: HYDROcodone/APAP 7.5-325MG 1 EACH TAB PO PRN (21:04)
[2020-01-03] MEDS: HYDROmorphone 1 MG/ML 1 ML SYRINGE IVP PRN ×3 (04:00→10:32)
[2020-01-03 04:47] VITALS: BP 134/76; RESP 17; TEMP 97.9
[2020-01-03 05:16] LABS: Basophils # (A) 0.1 k/uL (0-0.2); Basophils % (A) 1 %; Eosinophils # (A) 0.2 k/uL (0-0.7); Eosinophils % (A) 3 %; HCT 43.8 % (39.0-53.0); HGB 13.8 gm/dL (13.0-17.5); Lymphocytes % (A) 29 %; MCH 29.1 pg (25.0-35.0); MCHC 31.4 g/dL (31.0-37.0); MCV 92.6 fL (80.0-100.0); Mean Platelet Volume 7.5; Monocytes # (A) 0.9 k/uL (0-1.0); Monocytes % (A) 14 %; Neutrophils # (A) 3.5 k/uL (1.3-7.7); Neutrophils % (A) 52 %; Platelet Count 183 k/uL (150-450); RBC 4.73 m/uL (4.30-5.90); RDW 15.7 % (11.5-15.5); WBC 6.8 k/uL (3.8-10.6)
[2020-01-03] MEDS: SODIUM CHLORIDE 0.9% 1,000 ML IV SCH (07:43)
[2020-01-03] MEDS: amLODIPine 10 MG TAB PO SCH (07:45)
[2020-01-03] MEDS: PANTOPRAZOLE 40 MG TABLET PO SCH (07:45)
[2020-01-03] MEDS: GABAPENTIN 300 MG CAP PO SCH (07:46)
[2020-01-03] MEDS: allopurinoL 300 MG TAB PO SCH (07:46)
[2020-01-03 10:10] LABS: African American GFR (CKD) 125.8 (60.0-200.0); Blood Urea Nitrogen <5.0 mg/dL (9.0-27.0); Calcium 8.8 mg/dL (8.7-10.3); Carbon Dioxide 29.9 mmol/L (21.6-31.8); Chloride 101 mmol/L (96-109); Glucose 86 mg/dL (70-110); Non-African American GFR(CKD) 108.5 (60.0-200.0); Potassium 3.7 mmol/L (3.5-5.5); Sodium 139 mmol/L (135-145)
--- NOTE | 2020-01-03 10:32 | P.PN ---
Subjective Progress Note Date: 01/03/20 Principal diagnosis: Cellulitis of the right foot, peripheral arterial disease She was seen and examined at the bedside. The patient denies any acute changes through the night. The patient denies any fever or chills through the night. He remains on IV antibiotics. States still has pain in the right foot very sensitive to touch. Objective - Vital Signs Vital signs: Vital Signs Temp 97.9 F 01/03/20 04:45 Pulse 85 01/03/20 04:45 Resp 17 01/03/20 04:45 BP 134/76 01/03/20 04:45 Pulse Ox 93 L 01/03/20 04:45 Intake & Output 01/02/20 01/03/20 01/03/20 18:59 06:59 18:59 Intake Total 4690 2260 Output Total 1500 1100 Balance 3190 1160 Weight 95.254 kg Intake: Intake, IV Titration 1090 950 Amount Sodium Chloride 0.9% 1, 1040 900 000 ml @ 130 mls/hr IV . Q7H42M DINORAH Rx#:[id number] ceFAZolin 2 gm In Sodium 50 50 Chloride 0.9% 50 ml @ 100 mls/hr IVPB Q8HR DINORAH Rx# :[id number] Oral 3600 1310 Output: Urine 1500 1100 Other: Voiding Method Toilet Toilet Urinal # Voids 4 - Exam General appearance: The patient is alert, oriented, in no acute distress. HET: Head is normocephalic and atraumatic. Neck: Supple without lymphadenopathy. Trachea midline. Heart: S1 S2. Regular rate and rhythm. Lungs: No crackles or wheezes are heard. Abdomen: Soft, nontender, nondistended with bowel sounds. Extremities: Right foot dorsum side with two superficial ulcers and two blisters with erythema and swelling. Right lower extremity Multiphasic PT and DP signal. Right lower extremity very tender to palpation. Left lower extremity normal skin color and turgor, palpable DP. Neurological: No focal deficits. Strength and sensation are grossly intact. - Labs CBC & Chem 7: 01/03/20 04:22 01/03/20 04:22 Labs: Abnormal Lab Results - Last 24 Hours (Table) 01/02/20 01/03/20 01/03/20 Range/Units 17:31 04:22 04:22 RDW 15.7 H (11.5-15.5) % BUN <5.0 L (9.0-27.0) mg/dL POC Glucose (mg/dL) 145 H (75-99) mg/dL Microbiology - Last 24 Hours (Table) 12/28/19 17:15 Blood Culture - Preliminary Blood No Growth after 120 hours 12/29/19 Unknown Anaerobic Culture - Final Foot - Right Assessment and Plan Assessment: 1. Arterial insufficiency 2. Cellulitis of the right foot 3. Ulcerations and blistering on right lower extremity 4. Former smoker 5. Marijuana use, daily smoker 6. History of CVA 7. Hypertension 8. Seizure disorder 8. Osteoarthritis Plan: The patient discussed with Dr. Chaney. Continue with IV antibiotics per infectious disease. No vascular surgical intervention indicated at this time. Recommend outpatient follow up with Dr. Chaney. Further recommendations to follow. The above dictated assessment and findings were discussed with Dr. Chaney. The impression and plan of care have been directed as dictated.
--- NOTE | 2020-01-03 13:09 | PN ---
PROGRESS NOTE DATE OF SERVICE: 01/03/2020 REASON FOR FOLLOWUP: Right foot cellulitis. INTERVAL HISTORY: Patient is currently afebrile. Patient is breathing comfortably. Patient still having pain and swelling to the right leg but seems to have slightly decreased. Currently no open wound or any drainage. Denies having any chest pain or shortness of breath or cough. No abdominal pain or diarrhea. Vascular surgeon seen the patient, recommending outpatient followup. PHYSICAL EXAMINATION: Blood pressure 134/76, pulse of 85, temperature 97.9. He is 93% on room air. General description is a middle-aged male lying in bed in no distress. RESPIRATORY SYSTEM: Unlabored breathing, clear to auscultation anteriorly. HEART: S1, S2. Regular rate and rhythm. ABDOMEN: Soft, no tenderness. Right foot did have a necrotic area and some redness and swelling. No open wound or any drainage. LABS: Hemoglobin 13.8, white count 6.8, BUN of 5, and creatinine 0.6. Sedimentation rate was 2. JANAE, rheumatoid factor, and ANCA came back negative. DIAGNOSTIC IMPRESSION AND PLAN: Patient admitted to the hospital right foot pain. Initially, he did have some blisters and those have ruptured and lead to some superficial ulceration which are drying out with some surrounding redness. Concern is possible for ischemia. As the patient has significant history of smoking and calcification was noted on the CT with Doppler, Vascular Surgery is on the case recommending outpatient workup. The patient did not have a fever or elevated white count, CRP suspicious for any worsening significant infection. Will consider short course of oral Augmentin on discharge; however, the patient has been advised if any worsening swelling, redness or fever, he needs to come back to hospital right away, . All his questions and concerns were answered. MMODL / IJN: [id number] /
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
--- NOTE | 2020-01-04 10:02 | P.ARTDOP ---
Arterial Doppler LOWER EXTREMITY ARTERIAL DOPPLER: DATE OF SERVICE: 01/02/2020 Reason for study: Right foot ulcers. Doppler waveforms: Multiphasic bilaterally. Pulse volume recording: []. Pressure gradients: None. Ankle-brachial indices: Cannot be occluded. Toe brachial indices: 0.88 on the right, 0.74 on the left Impression: Normal study by virtual flow. Suspect calcific wall disease. Does not appear to be hemodynamically significant..
== END 2020-01-03 13:45 | disposition home or self-care (01) | DRG 603 ==
LOC: EC 11:55 → OBSVTOIN 16:36 → 1SOBS 16:36 → 6NMEDSUR 17:22
PROVIDERS: ADMIT Family Medicine; ATTEND Family Medicine
DX: L03.115 Cellulitis of right lower limb (principal); I73.9 Peripheral vascular disease, unspecified; L97.511 Non-pressure chronic ulcer of other part of right foot limited to breakdown of skin; G20 Parkinson's disease; F10.10 Alcohol abuse, uncomplicated; F12.90 Cannabis use, unspecified, uncomplicated; G40.909 Epilepsy, unspecified, not intractable, without status epilepticus; G43.909 Migraine, unspecified, not intractable, without status migrainosus; I10 Essential (primary) hypertension; M19.90 Unspecified osteoarthritis, unspecified site; G89.29 Other chronic pain; K21.9 Gastro-esophageal reflux disease without esophagitis; M10.9 Gout, unspecified; M54.9 Dorsalgia, unspecified; Z79.899 Other long term (current) drug therapy; Z88.6 Allergy status to analgesic agent; Z87.891 Personal history of nicotine dependence; Z91.81 History of falling; Z87.442 Personal history of urinary calculi; Z86.73 Personal history of transient ischemic attack (TIA), and cerebral infarction without residual deficits; Z86.718 Personal history of other venous thrombosis and embolism; Z86.14 Personal history of Methicillin resistant Staphylococcus aureus infection; Z90.49 Acquired absence of other specified parts of digestive tract; Z90.89 Acquired absence of other organs; Z98.890 Other specified postprocedural states; Z87.828 Personal history of other (healed) physical injury and trauma; Z87.19 Personal history of other diseases of the digestive system; Z83.3 Family history of diabetes mellitus
CPT/HCPCS: 36415; 80048; 80053; 80202; 82565; 83605; 85025; 85652; 86038; 86140; 86255; 86431; 87040; 87070; 87075; 87205; 93005; 93922; 93923; 96365; 96375; 96376; 99285

== ENCOUNTER 2020-01-08 00:12 | Emergency (ER) | payer MEDICARE, OTHER ==
[2020-01-08 00:20] VITALS: RESP 18; TEMP 97.6
[2020-01-08] MEDS ORDERED: oxyCODONE-APAP 5-325MG 1 EACH TAB PO STA (00:46)
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
[2020-01-08 01:18] LABS: Basophils # (A) 0.1 k/uL (0-0.2); Basophils % (A) 1 %; Eosinophils # (A) 0.3 k/uL (0-0.7); Eosinophils % (A) 3 %; HCT 45.7 % (39.0-53.0); Lymphocytes % (A) 23 %; MCH 29.2 pg (25.0-35.0); MCHC 32.8 g/dL (31.0-37.0); MCV 88.9 fL (80.0-100.0); Mean Platelet Volume 7.1; Monocytes # (A) 0.8 k/uL (0-1.0); Monocytes % (A) 9 %; Neutrophils # (A) 5.3 k/uL (1.3-7.7); Neutrophils % (A) 62 %; Platelet Count 241 k/uL (150-450); RBC 5.14 m/uL (4.30-5.90); RDW 15.8 % (11.5-15.5); WBC 8.5 k/uL (3.8-10.6)
[2020-01-08 01:27] LABS: ALT 25 U/L (4-49); AST 45 U/L (17-59); African American GFR (CKD) >90 (>60 ml/min/1.73 sqM); Albumin 3.9 g/dL (3.5-5.0); Alcohol <10 mg/dL; Alkaline Phosphatase 102 U/L (38-126); Blood Urea Nitrogen 7 mg/dL (9-20); Calcium 8.8 mg/dL (8.4-10.2); Carbon Dioxide 30 mmol/L (22-30); Chloride 101 mmol/L (98-107); Glucose 112 mg/dL (74-99); Non-African American GFR(CKD) >90 (>60 ml/min/1.73 sqM); Potassium 3.8 mmol/L (3.5-5.1); Total Bilirubin 0.6 mg/dL (0.2-1.3); Total Protein 7.2 g/dL (6.3-8.2)
[2020-01-08 01:28] LABS: Anion Gap 7 mmol/L; Sodium 138 mmol/L (137-145)
--- NOTE | 2020-01-08 01:52 | XR ---
EXAMINATION TYPE: XR foot complete RT DATE OF EXAM: 01/08/2020 COMPARISON: NONE HISTORY: Wound on the foot TECHNIQUE: 3 views FINDINGS: There is hypertrophic spurring at the first MP joint. I see no fracture nor dislocation. Th ere is no evidence of focal bone destruction. Metatarsals are intact. IMPRESSION: Moderate osteoarthritis at the first MP joint. No evidence of osteomyelitis.
[2020-01-08 03:11] VITALS: BP 138/100; PULSE 96
== END 2020-01-08 03:10 | disposition home or self-care (01) ==
LOC: EC 00:12
DX: M79.604 Pain in right leg (principal); K21.9 Gastro-esophageal reflux disease without esophagitis; I10 Essential (primary) hypertension; M10.9 Gout, unspecified; G40.909 Epilepsy, unspecified, not intractable, without status epilepticus; Z79.899 Other long term (current) drug therapy; Z87.891 Personal history of nicotine dependence; Z88.6 Allergy status to analgesic agent; Z86.73 Personal history of transient ischemic attack (TIA), and cerebral infarction without residual deficits; Z90.49 Acquired absence of other specified parts of digestive tract
CPT/HCPCS: 36415; 80053; 83605; 85025; 87040; 73630; 99285; G0480; 80320

== ENCOUNTER 2020-05-04 19:59 | Observation (INO) | payer MEDICARE, OTHER ==
[2020-05-04] MEDS ORDERED: SODIUM CHLORIDE 0.9% 1,000 ML IV STA (20:20)
[2020-05-04 20:52] LABS: Basophils # (A) 0.1 k/uL (0-0.2); Basophils % (A) 0 %; Eosinophils # (A) 0.1 k/uL (0-0.7); Eosinophils % (A) 1 %; HCT 47.5 % (39.0-53.0); HGB 16.1 gm/dL (13.0-17.5); Lymphocytes # (A) 1.4 k/uL (1.0-4.8); Lymphocytes % (A) 13 %; MCH 33.7 pg (25.0-35.0); MCV 99.1 fL (80.0-100.0); Monocytes # (A) 1.3 k/uL (0-1.0); Monocytes % (A) 12 %; Neutrophils # (A) 7.6 k/uL (1.3-7.7); Neutrophils % (A) 72 %; Platelet Count 170 k/uL (150-450); RBC 4.79 m/uL (4.30-5.90); RDW 13.9 % (11.5-15.5); WBC 10.5 k/uL (3.8-10.6)
[2020-05-04] MEDS ORDERED: METOCLOPRAMIDE 5 MG/ML 2 ML VIAL IVP STA (20:53)
[2020-05-04] MEDS ORDERED: diphenhydrAMINE 50 MG/ML 1 ML VIAL IVP STA (20:53)
[2020-05-04 21:05] LABS: ALT 91 U/L (4-49); AST 151 U/L (17-59); African American GFR (CKD) >90 (>60 ml/min/1.73 sqM); Albumin 4.2 g/dL (3.5-5.0); Alkaline Phosphatase 93 U/L (38-126); Anion Gap 13 mmol/L; Blood Urea Nitrogen 9 mg/dL (9-20); Calcium 8.3 mg/dL (8.4-10.2); Carbon Dioxide 25 mmol/L (22-30); Chloride 95 mmol/L (98-107); Creatine Kinase 418 U/L (55-170); Glucose 149 mg/dL (74-99); Non-African American GFR(CKD) >90 (>60 ml/min/1.73 sqM); Potassium 3.3 mmol/L (3.5-5.1); Sodium 133 mmol/L (137-145); Total Bilirubin 1.7 mg/dL (0.2-1.3); Total Protein 7.7 g/dL (6.3-8.2)
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
--- NOTE | 2020-05-04 22:42 | CT ---
EXAMINATION TYPE: CT abdomen pelvis w con DATE OF EXAM: 05/04/2020 COMPARISON: March 14, 2011 HISTORY: abdominal pain, nausea, vomiting CT DLP: 1546.6 mGycm Automated exposure control for dose reduction was used. CONTRAST: Performed with IV Contrast, patient injected with 100 mL of Isovue 300. There is mild atelectasis at the right lung base. There is no pleural effusion. Heart size is fairly normal. There is no pericardial effusion. Liver spleen stomach gallbladder pancreas appear intact. Bi le ducts are not dilated. There is no adrenal mass. Kidneys show satisfactory contrast opacification. There is no hydronephrosi s. There is 3 cm cortical cyst posterior left kidney. Delayed images show normal renal position. Uret ers are not dilated. There is no retroperitoneal adenopathy. Bladder distends smoothly. There is no i nguinal hernia. There is no free fluid in the pelvis. There is no evidence of a pelvic mass. There is no sign of thickened appendix. There is posterior fusion surgery in the lumbar spine from L4 to S1. Lumbar vertebra have normal alig nment. There is 15% depression superior endplate of T12 vertebra that is probably old. The bony pelvi s is intact. Hip joints are intact. There is no mesenteric edema. There is no ascites or free air. There is no bowel obstruction. IMPRESSION: Minimal atelectasis at the right lung base. No acute abnormality within the abdomen pelvis.
[2020-05-04 22:59] LABS: Appearance,Urine Clear (Clear); Color,Urine Yellow
[2020-05-04 23:00] LABS: Bilirubin,Urine Negative (Negative); Blood,Urine Negative (Negative); Glucose,Urine (UA) Negative (Negative); Ketones,Urine Negative (Negative); Leukocyte Esterase,Urine Negative (Negative); Nitrite,Urine Negative (Negative); Protein,Urine Negative (Negative)
[2020-05-04] MEDS ORDERED: NALOXONE 0.4 MG/ML 1 ML VIAL IV PRN (23:00)
[2020-05-04] MEDS ORDERED: SODIUM CHLORIDE 0.9% 1,000 ML IV SCH (23:00)
[2020-05-04 23:21] LABS: Amphetamine Screen,Urine Not Detected (NotDetected); Barbiturate Screen,Urine Not Detected (NotDetected); Benzodiazepines Screen,Urine Not Detected (NotDetected); Cocaine Screen,Urine Not Detected (NotDetected); Methadone Screen, Urine Not Detected (NotDetected); Opiate Screen,Urine Detected (NotDetected); Oxycodone Screen, Urine Not Detected (NotDetected); Phencyclidine Screen,Urine Not Detected (NotDetected); Tricyclic Antidepressant,Urine Not Detected (NotDetected); Urn Cannabinoid Scrn Detected (NotDetected)
[2020-05-04] MEDS ORDERED: SODIUM CHLORIDE 0.9% 1,000 ML IV ONE (23:27)
[2020-05-04] MEDS ORDERED: POTASSIUM CHLORIDE 20 MEQ in WATER FOR INJECTION 1 100ML.BAG IVPB ONE (23:30)
[2020-05-05] MEDS ORDERED: HYDROcodone/APAP 5-325MG 1 EACH TAB PO PRN
[2020-05-05] MEDS ORDERED: ALBUTEROL NEBULIZED 2.5 MG/3 ML INHALATION PRN
[2020-05-05] MEDS: ONDANSETRON 4 MG/2 ML VIAL IVP PRN ×2 (01:34→06:01)
[2020-05-05 06:36] LABS: Basophils # (A) 0.1 k/uL (0-0.2); Basophils % (A) 1 %; Eosinophils # (A) 0.1 k/uL (0-0.7); Eosinophils % (A) 1 %; HCT 48.1 % (39.0-53.0); HGB 15.9 gm/dL (13.0-17.5); Lymphocytes # (A) 1.9 k/uL (1.0-4.8); Lymphocytes % (A) 19 %; MCH 33.4 pg (25.0-35.0); MCHC 33.1 g/dL (31.0-37.0); MCV 100.9 fL (80.0-100.0); Mean Platelet Volume 8.2; Monocytes % (A) 10 %; Neutrophils # (A) 6.7 k/uL (1.3-7.7); Neutrophils % (A) 68 %; Platelet Count 159 k/uL (150-450); RBC 4.77 m/uL (4.30-5.90); WBC 9.9 k/uL (3.8-10.6)
[2020-05-05 06:43] LABS: African American GFR (CKD) >90 (>60 ml/min/1.73 sqM); Anion Gap 8 mmol/L; Blood Urea Nitrogen 4 mg/dL (9-20); Calcium 7.8 mg/dL (8.4-10.2); Carbon Dioxide 29 mmol/L (22-30); Chloride 99 mmol/L (98-107); Glucose 100 mg/dL (74-99); Non-African American GFR(CKD) >90 (>60 ml/min/1.73 sqM); Potassium 3.2 mmol/L (3.5-5.1); Sodium 136 mmol/L (137-145)
[2020-05-05 07:52] VITALS: BP 119/84; PULSE 75; RESP 16; TEMP 97.9
[2020-05-05] MEDS ORDERED: METOPROLOL TARTRATE 25 MG TAB PO SCH (09:00)
[2020-05-05] MEDS ORDERED: GABAPENTIN 300 MG CAP PO SCH (09:00)
[2020-05-05] MEDS ORDERED: PANTOPRAZOLE 40 MG TABLET PO SCH (09:00)
[2020-05-05] MEDS ORDERED: allopurinoL 300 MG TAB PO SCH (09:00)
[2020-05-05] MEDS ORDERED: amLODIPine 10 MG TAB PO SCH (09:00)
[2020-05-05] MEDS ORDERED: ZOLPIDEM 5 MG TAB PO PRN (12:18)
[2020-05-05] MEDS ORDERED: QUEtiapine 100 MG TAB PO SCH (21:00)
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
[2020-05-06] MEDS ORDERED: FUROSEMIDE 40 MG TAB PO SCH (09:00)
== END 2020-05-05 13:51 | disposition home or self-care (01) ==
LOC: EC 19:59 → 6NMEDSUR 23:00
PROVIDERS: ADMIT Hospitalist; ATTEND Hospitalist
DX: R11.2 Nausea with vomiting, unspecified (principal); E87.6 Hypokalemia; R10.84 Generalized abdominal pain; E87.2 Acidosis; R00.2 Palpitations; R20.2 Paresthesia of skin; K21.9 Gastro-esophageal reflux disease without esophagitis; I10 Essential (primary) hypertension; G40.909 Epilepsy, unspecified, not intractable, without status epilepticus; I69.354 Hemiplegia and hemiparesis following cerebral infarction affecting left non-dominant side; M10.9 Gout, unspecified; F41.9 Anxiety disorder, unspecified; F32.9 Major depressive disorder, single episode, unspecified; G89.29 Other chronic pain; M54.9 Dorsalgia, unspecified; G20 Parkinson's disease; F10.10 Alcohol abuse, uncomplicated; Z91.81 History of falling; G43.909 Migraine, unspecified, not intractable, without status migrainosus; R74.01 Elevation of levels of liver transaminase levels; M19.91 Primary osteoarthritis, unspecified site; G47.00 Insomnia, unspecified; Z79.899 Other long term (current) drug therapy; Z79.891 Long term (current) use of opiate analgesic; Z88.6 Allergy status to analgesic agent; Z86.711 Personal history of pulmonary embolism; Z87.820 Personal history of traumatic brain injury; Z87.442 Personal history of urinary calculi; Z86.718 Personal history of other venous thrombosis and embolism; Z87.891 Personal history of nicotine dependence; Z87.828 Personal history of other (healed) physical injury and trauma; Z90.49 Acquired absence of other specified parts of digestive tract; Z83.3 Family history of diabetes mellitus
CPT/HCPCS: 96376; 96375 ×2; 96361; 96365; 96366; 99285; 36415; 93005; 80053; 80048; 84443; 82550; 83605; 84484; 85025 ×2; 81003; 80306; 74177; G0378 ×3; G0480; J1200; J2765; J3480; J2405; Q9967; 80320

== ENCOUNTER 2020-06-17 19:51 | Inpatient (IN) | payer MEDICARE, OTHER ==
[2020-06-17 19:56] LABS: Glucose,Whole Blood 168 mg/dL (75-99)
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
[2020-06-17] MEDS ORDERED: SODIUM CHLORIDE 0.9% 1,000 ML IV STA (20:30)
[2020-06-17] MEDS ORDERED: ONDANSETRON 4 MG/2 ML VIAL IVP STA ×2 (20:32→22:21)
[2020-06-17 20:58] LABS: Basophils # (A) 0.1 k/uL (0-0.2); Basophils % (A) 1 %; Eosinophils % (A) 0 %; HCT 50.4 % (39.0-53.0); HGB 16.9 gm/dL (13.0-17.5); Lymphocytes # (A) 2.9 k/uL (1.0-4.8); Lymphocytes % (A) 25 %; MCH 33.7 pg (25.0-35.0); MCHC 33.5 g/dL (31.0-37.0); MCV 100.6 fL (80.0-100.0); Mean Platelet Volume 8.3; Monocytes # (A) 1.4 k/uL (0-1.0); Monocytes % (A) 13 %; Neutrophils # (A) 6.8 k/uL (1.3-7.7); Neutrophils % (A) 60 %; Platelet Count 228 k/uL (150-450); RBC 5.01 m/uL (4.30-5.90); RDW 12.5 % (11.5-15.5); WBC 11.3 k/uL (3.8-10.6)
[2020-06-17 21:08] LABS: INR 1.2 (<1.2); Partial Thromboplastin Time 23.9 sec (22.0-30.0); Prothrombin Time 12.4 sec (9.0-12.0)
[2020-06-17 21:10] LABS: AST 74 U/L (17-59); African American GFR (CKD) >90 (>60 ml/min/1.73 sqM); Albumin 4.8 g/dL (3.5-5.0); Alcohol <10 mg/dL; Alkaline Phosphatase 110 U/L (38-126); Anion Gap 26 mmol/L; Blood Urea Nitrogen 10 mg/dL (9-20); Calcium 9.4 mg/dL (8.4-10.2); Carbon Dioxide 16 mmol/L (22-30); Chloride 95 mmol/L (98-107); Glucose 194 mg/dL (74-99); Magnesium 1.3 mg/dL (1.6-2.3); Non-African American GFR(CKD) >90 (>60 ml/min/1.73 sqM); Potassium 3.2 mmol/L (3.5-5.1); Sodium 137 mmol/L (137-145); Total Bilirubin 1.3 mg/dL (0.2-1.3); Total Protein 8.1 g/dL (6.3-8.2)
[2020-06-17 21:18] LABS: ALT 55 U/L (4-49)
--- NOTE | 2020-06-17 21:21 | XR ---
EXAMINATION TYPE: XR chest 1V portable DATE OF EXAM: 06/17/2020 COMPARISON: 10/17/2019 HISTORY: Near syncope TECHNIQUE: Single frontal view of the chest is obtained. FINDINGS: There is no focal air space opacity, pleural effusion, or pneumothorax seen. The cardiac silhouette size is within normal limits. The osseous structures are intact. IMPRESSION: No acute process.
--- NOTE | 2020-06-17 22:02 | CT ---
EXAMINATION TYPE: CT brain wo con DATE OF EXAM: 06/17/2020 COMPARISON: 09/18/2019 HISTORY: Near Syncope and craniotomy. CT DLP: 1091.40 mGycm Automated exposure control for dose reduction was used. FINDINGS: There is a large craniotomy defect in the left temporal parietal region. Beneath the craniotomy there is a large area of encephalitis malacia consistent with a large surgical defect involving the left t emporal and parietal lobe. The ventricles, basal cisterns and sulci over the convexities are within normal limits. There is no m ass effect or shift of the midline structures. There is no acute intra or extra-axial hemorrhage. Grossly the posterior fossa is normal. The intraorbital contents are normal and symmetric. Visualized paranasal sinuses and mastoid air cell s are well aerated. IMPRESSION: Postsurgical defect involving the left remain in the left frontal and parietal lobes presumably for t umor resection.Comparison to the prior study of 09/18/2019 reveals no interval change.
[2020-06-17] MEDS ORDERED: POTASSIUM CHLORIDE ER 20 MEQ TAB.ER PO STA (22:20)
[2020-06-17] MEDS ORDERED: MAGNESIUM SULFATE-D5W PMX 1 GM in DEXTROSE/WATER 1 100ML.BAG IVPB ONE (22:21)
[2020-06-17] MEDS ORDERED: MORPHINE SULFATE 4 MG/ML SYRINGE IVP STA (22:21)
[2020-06-17] MEDS: SODIUM CHLORIDE 0.9% 1,000 ML IV SCH (23:52)
[2020-06-18] MEDS ORDERED: ACETAMINOPHEN TAB 325 MG TAB PO PRN (01:18)
[2020-06-18] MEDS: MELATONIN 5 MG TABLET PO SCH ×2 (01:50→20:28)
[2020-06-18] MEDS: ONDANSETRON 4 MG/2 ML VIAL IVP PRN ×2 (04:46→16:47)
[2020-06-18] MEDS ORDERED: LORazepam 2 MG/ML INJ IV PRN (04:59)
[2020-06-18] MEDS ORDERED: THIAMINE 100 MG/ML 2 ML VIAL IM STA (05:00)
[2020-06-18] MEDS: LORazepam 2 MG/ML INJ IV PRN ×5 (05:39→20:29)
[2020-06-18 08:20] LABS: Basophils % (A) 0 %; Eosinophils # (A) 0.1 k/uL (0-0.7); Eosinophils % (A) 1 %; HCT 45.4 % (39.0-53.0); HGB 15.4 gm/dL (13.0-17.5); Lymphocytes # (A) 1.5 k/uL (1.0-4.8); Lymphocytes % (A) 21 %; MCHC 33.9 g/dL (31.0-37.0); MCV 100.4 fL (80.0-100.0); Mean Platelet Volume 7.5; Monocytes # (A) 0.9 k/uL (0-1.0); Monocytes % (A) 12 %; Neutrophils # (A) 4.6 k/uL (1.3-7.7); Neutrophils % (A) 64 %; Platelet Count 142 k/uL (150-450); RBC 4.52 m/uL (4.30-5.90); RDW 12.4 % (11.5-15.5); WBC 7.2 k/uL (3.8-10.6)
[2020-06-18 09:01] LABS: ALT 39 U/L (4-49); AST 55 U/L (17-59); African American GFR (CKD) >90 (>60 ml/min/1.73 sqM); Albumin 3.5 g/dL (3.5-5.0); Alkaline Phosphatase 80 U/L (38-126); Anion Gap 7 mmol/L; Blood Urea Nitrogen 6 mg/dL (9-20); Calcium 8.4 mg/dL (8.4-10.2); Carbon Dioxide 30 mmol/L (22-30); Chloride 101 mmol/L (98-107); Glucose 87 mg/dL (74-99); Non-African American GFR(CKD) >90 (>60 ml/min/1.73 sqM); Potassium 3.6 mmol/L (3.5-5.1); Sodium 138 mmol/L (137-145); Total Bilirubin 1.3 mg/dL (0.2-1.3); Total Protein 6.5 g/dL (6.3-8.2)
[2020-06-18] MEDS: SODIUM CHLORIDE 0.9% 1,000 ML IV SCH (09:22)
[2020-06-18] MEDS ORDERED: ALBUTEROL NEBULIZED 2.5 MG/3 ML INHALATION PRN (13:52)
[2020-06-18] MEDS ORDERED: ZOLPIDEM 5 MG TAB PO PRN (13:52)
[2020-06-18] MEDS ORDERED: HYDROcodone/APAP 5-325MG 1 EACH TAB PO PRN (13:52)
[2020-06-18 15:11] LABS: Appearance,Urine Clear (Clear); Bilirubin,Urine Negative (Negative); Blood,Urine Negative (Negative); Color,Urine Yellow; Glucose,Urine (UA) Negative (Negative); Ketones,Urine Negative (Negative); Leukocyte Esterase,Urine Trace (Negative); Mucus,Urine Occasional /hpf; Nitrite,Urine Negative (Negative); PH, Urine 6.5 (5.0-8.0); Protein,Urine Negative (Negative); RBC,Urine 1 /hpf (0-5); Specific Gravity,Urine 1.018 (1.001-1.035); Squamous Epithelial Cell,Urine <1 /hpf (0-4); WBC,Urine 1 /hpf (0-5)
[2020-06-18 15:37] LABS: Cocaine Screen,Urine Not Detected (NotDetected); Opiate Screen,Urine Detected (NotDetected); Phencyclidine Screen,Urine Not Detected (NotDetected); Urn Cannabinoid Scrn Detected (NotDetected)
[2020-06-18 15:38] LABS: Amphetamine Screen,Urine Not Detected (NotDetected); Barbiturate Screen,Urine Not Detected (NotDetected); Benzodiazepines Screen,Urine Detected (NotDetected); Methadone Screen, Urine Not Detected (NotDetected); Oxycodone Screen, Urine Not Detected (NotDetected); Tricyclic Antidepressant,Urine Not Detected (NotDetected)
[2020-06-18] MEDS: THIAMINE 100 MG TAB PO SCH (16:47)
[2020-06-18] MEDS: amLODIPine 10 MG TAB PO SCH (16:48)
[2020-06-18] MEDS: METOPROLOL TARTRATE 25 MG TAB PO SCH ×2 (16:48→20:28)
[2020-06-18] MEDS: allopurinoL 300 MG TAB PO SCH (16:48)
[2020-06-18] MEDS: PANTOPRAZOLE 40 MG TABLET PO SCH (16:48)
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
[2020-06-19] MEDS: SODIUM CHLORIDE 0.9% 1,000 ML IV SCH (01:53)
[2020-06-19] MEDS: THIAMINE 100 MG TAB PO SCH (06:50)
[2020-06-19] MEDS: PANTOPRAZOLE 40 MG TABLET PO SCH (06:50)
[2020-06-19] MEDS: amLODIPine 10 MG TAB PO SCH (08:50)
[2020-06-19] MEDS: LORazepam 2 MG/ML INJ IV PRN (08:50)
[2020-06-19] MEDS: allopurinoL 300 MG TAB PO SCH (08:50)
[2020-06-19] MEDS: METOPROLOL TARTRATE 25 MG TAB PO SCH (08:50)
[2020-06-19 12:06] VITALS: BP 133/79; PULSE 63; RESP 16; TEMP 98.2
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
[2020-06-19] MEDS ORDERED: levETIRAcetam 500 MG TAB PO SCH (21:00)
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
== END 2020-06-19 17:29 | disposition home or self-care (01) | DRG 101 ==
LOC: EC 19:51 → 3SCARD 22:41
PROVIDERS: ADMIT Hospitalist; ATTEND Hospitalist
DX: G40.909 Epilepsy, unspecified, not intractable, without status epilepticus (principal); E87.2 Acidosis; F41.0 Panic disorder [episodic paroxysmal anxiety]; F10.20 Alcohol dependence, uncomplicated; F41.8 Other specified anxiety disorders; I69.334 Monoplegia of upper limb following cerebral infarction affecting left non-dominant side; I10 Essential (primary) hypertension; K11.7 Disturbances of salivary secretion; G43.909 Migraine, unspecified, not intractable, without status migrainosus; G89.29 Other chronic pain; G20 Parkinson's disease; K21.9 Gastro-esophageal reflux disease without esophagitis; M19.91 Primary osteoarthritis, unspecified site; N41.9 Inflammatory disease of prostate, unspecified; Z87.820 Personal history of traumatic brain injury; S01.90XS Unspecified open wound of unspecified part of head, sequela; W34.00XS Accidental discharge from unspecified firearms or gun, sequela; Z79.899 Other long term (current) drug therapy; Z83.3 Family history of diabetes mellitus; Z86.718 Personal history of other venous thrombosis and embolism; F12.90 Cannabis use, unspecified, uncomplicated; Z87.442 Personal history of urinary calculi; E87.6 Hypokalemia; E83.42 Hypomagnesemia; Z87.891 Personal history of nicotine dependence; Z91.81 History of falling; Z90.49 Acquired absence of other specified parts of digestive tract; Z96.652 Presence of left artificial knee joint; Z79.891 Long term (current) use of opiate analgesic
CPT/HCPCS: 36415; 70450; 71045; 80053; 80306; 80320; 81001; 83735; 84484; 85025; 85610; 85730; 93005; 95816; 96361; 96374; 96375; 96376; 99285

== ENCOUNTER 2021-02-26 15:01 | Emergency (ER) | payer MEDICARE, OTHER ==
[2021-02-26] MEDS ORDERED: SODIUM CHLORIDE 0.9% 1,000 ML IV STA (15:16)
[2021-02-26 15:17] VITALS: RESP 18
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
[2021-02-26 16:05] LABS: Basophils # (A) 0.1 k/uL (0-0.2); Basophils % (A) 1 %; Eosinophils # (A) 0.1 k/uL (0-0.7); Eosinophils % (A) 1 %; HCT 46.2 % (39.0-53.0); HGB 15.9 gm/dL (13.0-17.5); Lymphocytes % (A) 43 %; MCH 34.2 pg (25.0-35.0); MCHC 34.5 g/dL (31.0-37.0); Mean Platelet Volume 7.1; Monocytes # (A) 0.4 k/uL (0-1.0); Monocytes % (A) 4 %; Neutrophils # (A) 4.5 k/uL (1.3-7.7); Neutrophils % (A) 49 %; Platelet Count 246 k/uL (150-450); RBC 4.67 m/uL (4.30-5.90); RDW 13.3 % (11.5-15.5); WBC 9.2 k/uL (3.8-10.6)
[2021-02-26 16:13] LABS: Partial Thromboplastin Time 24.4 sec (22.0-30.0); Prothrombin Time 10.6 sec (9.0-12.0)
--- NOTE | 2021-02-26 16:14 | XR ---
EXAMINATION TYPE: XR chest 2V DATE OF EXAM: 02/26/2021 COMPARISON: 06/17/2020 TECHNIQUE: PA and lateral views submitted. HISTORY: Syncope FINDINGS: There is to be a wire or lead overlying the left chest extending along the left rib cage. Elevated he midiaphragms. Air beneath the right hemidiaphragm likely within the colon and there are subsegmental right basilar infiltrate or atelectasis. Arthropathy of the shoulders. Heart size normal with no over t failure. Atherosclerotic change aorta. IMPRESSION: 1. Chronic right basilar atelectasis favored over infiltrate. 2. There is a lead or wire overlying the left chest which should be correlated with clinical exam for etiology. Metallic density in the lateral view overlies the retrosternal space correlate clinically.
[2021-02-26 16:18] LABS: ALT 34 U/L (4-49); AST 40 U/L (17-59); African American GFR (CKD) >90 (>60 ml/min/1.73 sqM); Albumin 4.5 g/dL (3.5-5.0); Alkaline Phosphatase 82 U/L (38-126); Anion Gap 17 mmol/L; Blood Urea Nitrogen 22 mg/dL (9-20); Calcium 9.6 mg/dL (8.4-10.2); Carbon Dioxide 20 mmol/L (22-30); Chloride 105 mmol/L (98-107); Glucose 120 mg/dL (74-99); Magnesium 1.6 mg/dL (1.6-2.3); Non-African American GFR(CKD) 81 (>60 ml/min/1.73 sqM); Potassium 4.8 mmol/L (3.5-5.1); Sodium 142 mmol/L (137-145); Total Bilirubin 0.3 mg/dL (0.2-1.3); Total Protein 7.8 g/dL (6.3-8.2)
--- NOTE | 2021-02-26 16:18 | CT ---
EXAMINATION TYPE: CT brain wo con DATE OF EXAM: 02/26/2021 COMPARISON: 06/17/2020 HISTORY: Headache CT DLP: 1247.40 mGycm Automated exposure control for dose reduction was used. FINDINGS: There is a large craniotomy defect in the left temporal parietal region. Beneath the craniotomy there is a large area of encephalomalacia consistent with a large surgical defect involving the left tempo ral and parietal lobe. Craniocervical junction maintained. Intracranial atherosclerotic changes noted . The ventricles, basal cisterns and sulci over the convexities are within normal limits. There is no m ass effect or shift of the midline structures. Artifact along the left parietal region and there is i ncreased density from appears to be surgical change. However this results in vague increased attenuat ion in the left parietal lobe felt to be more likely artifactual than hemorrhage although a small hem orrhage cannot be excluded. Grossly the posterior fossa is normal. The intraorbital contents are normal and symmetric. Visualized paranasal sinuses and mastoid air cells are well aerated. IMPRESSION: 1. Postsurgical change with encephalomalacia. There is severe artifact along the left parietal and te mporal lobe. There is increased hyperdensity along the left basal ganglia and temporal lobe is most l ikely is artifactual rather than a tiny hemorrhage but should be correlated clinically given the limi tation of the exam.
[2021-02-26 16:30] LABS: Alcohol 278 mg/dL
[2021-02-26 16:48] VITALS: TEMP 97.5
[2021-02-26 16:57] VITALS: BP 142/70; PULSE 98
== END 2021-02-26 16:55 | disposition home or self-care (01) ==
LOC: EC 15:01
DX: R51.9 Headache, unspecified (principal); F10.129 Alcohol abuse with intoxication, unspecified; I10 Essential (primary) hypertension; G20 Parkinson's disease; M10.9 Gout, unspecified; K21.9 Gastro-esophageal reflux disease without esophagitis; G40.909 Epilepsy, unspecified, not intractable, without status epilepticus; M19.90 Unspecified osteoarthritis, unspecified site; Z79.899 Other long term (current) drug therapy; F32.9 Major depressive disorder, single episode, unspecified; F41.9 Anxiety disorder, unspecified; F12.90 Cannabis use, unspecified, uncomplicated; Z87.891 Personal history of nicotine dependence; Z86.718 Personal history of other venous thrombosis and embolism; Z86.73 Personal history of transient ischemic attack (TIA), and cerebral infarction without residual deficits; Z90.49 Acquired absence of other specified parts of digestive tract; Z83.3 Family history of diabetes mellitus; Y90.8 Blood alcohol level of 240 mg/100 ml or more
CPT/HCPCS: 36415; 93005; 80053; 83735; 85025; 85610; 85730; 71046; 70450; 99285; 96360; G0480; 80320; 96365

== ENCOUNTER 2021-04-24 12:33 | Day surgery (SDC) | payer MEDICARE, OTHER ==
[2021-04-17 15:49] VITALS: BMI 29.0
[~2021-04-24 12:33] MED LIST: LACTATED RINGERS 1,000 ML IV SCH; LIDOCAINE 1% (10MG/ML) FOR IV START INTRADERMA PRN; ONDANSETRON 4 MG/2 ML VIAL IVP ONE; Pre Op ABX Message 1 EACH MISC MISCELLANE ONE; fentaNYL (PF) 50 MCG/ML 2 ML AMP IV PRN
[2021-04-24 13:04] VITALS: RESP 20; TEMP 98.5
[2021-04-24] MEDS ORDERED: ONDANSETRON 4 MG/2 ML VIAL IVP ONE (13:23)
[2021-04-24] MEDS ORDERED: BUPIVACAINE (PF) 0.25% 30 ML VIAL SQ ONE (14:10)
[2021-04-24] MEDS ORDERED: PROPOFOL 10 MG/ML 20 ML VIAL IV ONE (14:11)
[2021-04-24] MEDS ORDERED: MIDAZOLAM 2 MG/2 ML VIAL ONE (14:11)
[2021-04-24] MEDS ORDERED: fentaNYL (PF) 50 MCG/ML 2 ML AMP ONE (14:11)
[2021-04-24] MEDS ORDERED: LIDOCAINE 1% INJ 10MG/ML (20 ML MDV) SQ ONE (14:21)
[2021-04-24] MEDS ORDERED: BACITRACIN ZINC 500 UNIT/GM OINT 28.4 GM TUBE TOPICAL ONE (14:30)
--- NOTE | 2021-04-24 14:41 | P.OP ---
Date of Procedure: 04/24/21 Preoperative Diagnosis: Paronychia medial nail border right great toe Postoperative Diagnosis: Same Procedure(s) Performed: I and D of paronychia medial nail border right hallux Surgeon: Johan Quiroz Indications for Procedure: Painfully infected ingrown nail medial side of right hallux Description of Procedure: On the date of surgery the patient was taken to the operating room in good condition placed on the operating table supine position where an IV was started and adequate IV anesthetic agents were utilized anesthesia was then further supplemented with approximately 4 mL of 1% Xylocaine plain given in a digital block to the patient's right great toe patient's right foot and ankle were then prepped and draped in the usual aseptic manner. Utilizing a Aminta drain as a tourniquet this was applied at the base of the right hallux [employer] nail cutting instrument was used to cut back the nail along the medial border to the epionychium area a nail splitter was used to advance the cut and the nail back to the proximal most aspect of the matrix the nail border was freed both dorsally and plantarly was clamped utilizing a straight hemostat and removed in total from the surgical site bacitracin and light dressings were applied . The patient tolerated the surgery and anesthesia well was taken to the recovery room in good postoperative condition
[2021-04-24 15:06] VITALS: BP 117/73; PULSE 90
== END 2021-04-24 15:16 | disposition home or self-care (01) ==
LOC: OR 12:33
PROVIDERS: ATTEND Podiatrist Foot & Ankle Surgery
DX: L03.031 Cellulitis of right toe (principal); I10 Essential (primary) hypertension; E78.5 Hyperlipidemia, unspecified; I73.9 Peripheral vascular disease, unspecified; G40.909 Epilepsy, unspecified, not intractable, without status epilepticus; F03.90 Unspecified dementia, unspecified severity, without behavioral disturbance, psychotic disturbance, mood disturbance, and anxiety; Z98.890 Other specified postprocedural states; I69.311 Memory deficit following cerebral infarction; Z96.652 Presence of left artificial knee joint; Z97.2 Presence of dental prosthetic device (complete) (partial); Z83.3 Family history of diabetes mellitus; Z82.49 Family history of ischemic heart disease and other diseases of the circulatory system; Z79.899 Other long term (current) drug therapy; Z88.6 Allergy status to analgesic agent
CPT/HCPCS: 10060; J2250; J2405; J2001; J3010; J2704

== ENCOUNTER → 2021-06-27 | Outpatient (CLI) | payer MEDICARE, OTHER ==
--- NOTE | 2021-06-27 11:43 | CT ---
EXAMINATION TYPE: CT abdomen pelvis w con DATE OF EXAM: 06/27/2021 COMPARISON: CT abdomen and pelvis May 04, 2020 HISTORY: Right sided abdominal pain. Pelvic swelling. Recent abnormal ultrasound. CT DLP: 1406.1 mGycm, Automated Exposure Control for Dose Reduction was Utilized. CONTRAST: CT scan of the abdomen and pelvis is performed with oral and with IV Contrast, patient injected with 100 mL of Isovue M300. FINDINGS: LUNG BASES: Coronary artery calcification is redemonstrated. Bilateral gynecomastia again seen. Motio n artifact the level of lung bases noted. LIVER/GB: No significant abnormality is appreciated. PANCREAS: No significant abnormality is seen. SPLEEN: No significant abnormality is seen. ADRENALS: No significant abnormality is seen. KIDNEYS: There is 2.8 cm low dense lesion posteriorly in the midpole of the left kidney axial series 3 image 37 favoring benign thin-walled cyst . BOWEL: Oral contrast extends to level of the hepatic flexure. Colonic interposition redemonstrated. N o suspicious small or large bowel dilatation. PROSTATE/SEMINAL VESICLES: Mildly enlarged prostate consistent with BPH. LYMPH NODES: No greater than 1cm abdominal or pelvic lymph nodes are appreciated. OSSEOUS STRUCTURES: Postsurgical change L4-S1 levels redemonstrated. Prominent Schmorl node superior T12 endplate again seen. Alignment stable. OTHER: Mild to moderate calcified plaque of the aorta extends into branch vessels. IMPRESSION: No intra-abdominal or pelvic ascites. No obvious new mass or adenopathy. No significant change from prior CT. Abnormal outside ultrasound and/or report not available at time of dictation to correlate.
== END | disposition home or self-care (01) ==
LOC: RADCTMAIN 09:22
PROVIDERS: ATTEND General Practice
DX: R19.03 Right lower quadrant abdominal swelling, mass and lump (principal); R93.5 Abnormal findings on diagnostic imaging of other abdominal regions, including retroperitoneum
CPT/HCPCS: 74177; Q9967 ×2

== ENCOUNTER → 2021-07-15 | Outpatient (CLI) | payer MEDICARE, OTHER ==
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
[2021-07-15 11:29] VITALS: BP 120/74; PULSE 60; RESP 18; TEMP 98
== END ==
LOC: PNWHC3 09:56
PROVIDERS: ATTEND Specialist
DX: S11.93XA Puncture wound without foreign body of unspecified part of neck, initial encounter (principal); Z86.73 Personal history of transient ischemic attack (TIA), and cerebral infarction without residual deficits; Z86.718 Personal history of other venous thrombosis and embolism; I10 Essential (primary) hypertension; M19.90 Unspecified osteoarthritis, unspecified site; G40.909 Epilepsy, unspecified, not intractable, without status epilepticus; F41.9 Anxiety disorder, unspecified; F32.A Depression, unspecified; Z87.891 Personal history of nicotine dependence; Z88.6 Allergy status to analgesic agent
CPT/HCPCS: 99211

== ENCOUNTER → 2021-11-06 | Outpatient (CLI) | payer MEDICARE, OTHER ==
[2021-11-06 12:29] VITALS: BP 119/75; PULSE 67; RESP 18; TEMP 97.8
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
== END ==
LOC: PNWHC3 10:08
PROVIDERS: ATTEND Specialist
DX: M54.81 Occipital neuralgia (principal); G44.86 Cervicogenic headache; M47.812 Spondylosis without myelopathy or radiculopathy, cervical region; Z86.73 Personal history of transient ischemic attack (TIA), and cerebral infarction without residual deficits; Z86.718 Personal history of other venous thrombosis and embolism; I10 Essential (primary) hypertension; M19.90 Unspecified osteoarthritis, unspecified site; G40.909 Epilepsy, unspecified, not intractable, without status epilepticus; Z88.6 Allergy status to analgesic agent; Z87.891 Personal history of nicotine dependence
CPT/HCPCS: 99211

== ENCOUNTER → 2021-11-29 | Outpatient (CLI) | payer MEDICARE, OTHER | END | disposition home or self-care (01) | LOC: LABWHC1 09:24 | PROVIDERS: ATTEND Orthopaedic Surgery | DX: T84.84XA Pain due to internal orthopedic prosthetic devices, implants and grafts, initial encounter (principal); Y79.2 Prosthetic and other implants, materials and accessory orthopedic devices associated with adverse incidents; Z96.652 Presence of left artificial knee joint | CPT/HCPCS: 36415; 85379; 85652; 86140 ==

== ENCOUNTER → 2021-12-19 | Day surgery (SDC) | payer MEDICARE, OTHER ==
[2021-12-18 12:32] VITALS: BMI 29.0
[~2021-12-19] MED LIST changes: +IV FLUID CONTINUATION 1,000 ML IV ONE; +MIDAZOLAM 2 MG/2 ML VIAL ONE; -ONDANSETRON 4 MG/2 ML VIAL IVP ONE; -Pre Op ABX Message 1 EACH MISC MISCELLANE ONE; +ROPIVACAINE 5MG/ML 20ML VIAL ONE; -fentaNYL (PF) 50 MCG/ML 2 ML AMP IV PRN; +fentaNYL (PF) 50 MCG/ML 2 ML AMP ONE; +methylPREDNISolone ACETATE 80 MG/ML 1 ML VIAL ONE
[2021-12-19 08:38] VITALS: TEMP 97.8
--- NOTE | 2021-12-19 09:19 | P.PCN ---
Date of Procedure: 12/19/21 Procedure(s) Performed: Preoperative diagnoses= 1- Greater occipital neuralgia. 2-cervicogenic headache. 3-cervical spondylosis and cervical facet arthropathy Postoperative diagnoses= same as preoperative diagnosis. Procedure= Bilateral Greater occipital nerve block Anesthesia= moderate sedation with Versed 2 mg and fentanyl 100 micrograms Sedation start time : 09:13 . Sedation end time :09:17 . Estimated blood loss=minimal. Procedure indication= the patient had a history of severe chronic neck pain ,and headache, diagnosed with occipital neuralgia exam was positive for severe tenderness over the occipital nerve bilaterally, she will be a good candidate occipital nerve block, patient failed conservative management Procedure description= the patient was seen and identified in the preoperative holding area, risks and benefits and alternative of the procedure and possible complications discussed with the patient, and he agreed with the preceding, patient signed the consent, an IV was started, and vital signs were monitored and were stable throughout the procedure, patient was placed in the sitting position or table and the neck area was prepped and draped with a sterile fashion, vital signs were closely monitored during the procedure, 25-gauge needle advanced 1 inch lateral to the occipital protuberance on the right side, at the location of the right occipital nerve , then after negative aspiration for heme and CSF and there was no paresthesia during the injection, 6 ml of Robivacaine 0.5% and 40 mg of Depo-Medrol injected after negative aspiration, the needle removed, and the entire same procedure was repeated for the left Greater occipital nerve. Patient tolerated the procedure well without any complication, The patient returned to supine position after the back was cleaned and a Band- Aid applied, the patient transported to recovery room in stable condition and he was monitored for 30 minutes before he was discharged home and then patient was reexamined before going home and patient was discharged in stable condition and patient will follow up with the pain clinic in a few weeks.
[2021-12-19 09:40] VITALS: BP 113/75; PULSE 81; RESP 18
== END ==
LOC: ORPAIN 07:41
PROVIDERS: ATTEND Specialist
DX: M47.812 Spondylosis without myelopathy or radiculopathy, cervical region (principal); G44.86 Cervicogenic headache; G89.29 Other chronic pain; M54.2 Cervicalgia; Z88.6 Allergy status to analgesic agent; Z98.890 Other specified postprocedural states
CPT/HCPCS: 64405; J2250; J1040; J3010; J2795

== ENCOUNTER → 2022-01-06 | Outpatient (CLI) | payer MEDICARE, OTHER ==
[2022-01-06 10:15] VITALS: BP 136/79; PULSE 60; RESP 18; TEMP 98.2
--- NOTE | 2022-01-06 14:22 | P.PAINPG ---
PQRS Measure Charge Sheet Comment: A 61 yr old male w at side with a history of severe and chronic low back pain secondary to lumbar degenerative disc diseases and lumbar spondylosis with facet arthropathy without myelopathy presents today for evaluation s/p BL KD injection. Pt states he experienced >95% pain relief x 2-3 wks s/p procedure. Pain level is currently at 0/10 in intensity, only feeling slight pressure at the the injection sites in the base of the head. Pain is provoked by rigorous hyperextension/ flexion, rotation. Pain is alleviated with injections, repositioning and rest. Interventional pain procedures completed include BL KD injection Patient is currently on DENIES Patient denies any side effects of the medication(s), denies excessive drowsiness or sleepiness, denies suicidal ideation and reports that the current pain medication is helping to control the pain and improve activities of daily living. Patient denies any motor or sensory deficits. Patient denies any fever or night sweats, denies any change in the bowel movements or urination. Physical Examination: -Constitutional: Cooperative. Not in acute distress . - Neurologic: Cranial nerve II to XII intact. No focal neurological deficits. - Psychatric: Alert & oriented x 3. Matching mood & appropriate affect. Judgment and insight intact. - Musculoskeletal: Cervical spine: Muscle bulk/ tone/ strength in the bilateral upper extremities normal Vertebral body tenderness to palpation over Spurling test positive Distraction test positive Facet loading test positive Thoracic spine Muscle bulk / tone/ strength in the bilateral paraspinal muscles normal Vertebral body tender to palpation over Facet loading test positive Lumbar spine: Motor bulk/ tone/ strength lower extremities , thigh and legs : 5/5 Deep tendon reflexes : Normal Knee Jerk. Normal Ankle Jerk . Vertebral body tenderness to palpation over Lumbar Facet Loading Test positive Straight Leg Raise: positive at 30 degrees right side/ left side Gaenslen's Test positive Sacral spine : Severe tenderness over the Sacroiliac joint: right side / left side Range of motion: Flexion of the lumbar spine <60 degrees Range of motion: Extension of the lumbar spine <20 degrees Gaenslen's Test positive Rene's Test positive Ebony test: positive right side / left side Thigh Thrust Test Sacral Thrust Test Assessment and plan: Chronic low back pain secondary to lumbar degenerative disc disease , lumbar spondylosis with facet arthropathy without myelopathy Pt exhibited substantial pain relief w procedure. They may utilize home pain mgmt modification regimens at this time and may return to our clinic on an as needed basis. Risks, benefits of procedure discussed and pt verbalized understanding. Denies anticoagulant use or medical history of diabetes. All patient questions answered I have spent less than 30 minutes on patient care today. Dr Chi was available by phone for the evaluation of this patient. The time was used to review the medical records including relevant urine studies and Prescription history (MAPs), review of the available imaging, evaluation and examination of the patient, coordination of care with the medical staff and if applicable referring physicians, as well as creation of the medical record PQRS Narrative: Smoking Status Former smoker Hx Alcohol Use (MH) Yes Home Medications: Ambulatory Orders amLODIPine BESYLATE [Norvasc] 10 mg PO DAILY 03/07/15 allopurinoL [Zyloprim] 300 mg PO DAILY 04/10/18 Albuterol Inhaler [Ventolin Hfa Inhaler] 2 puff INHALATION RT-QID PRN 05/04/20 lisinopriL [Prinivil] 20 mg PO DAILY 02/26/21 Atorvastatin [Lipitor] 20 mg PO DAILY 04/19/21 levETIRAcetam [Keppra] 500 mg PO Q12HR 04/19/21 Zolpidem [Ambien] 5 mg PO HS PRN 04/24/21 Controlled Substance Measures - Controlled Substance Measures Is patient prescribed a controlled substance at discharge?: No
== END ==
LOC: PNWHC3 09:48
PROVIDERS: ATTEND Specialist
DX: M51.36 Other intervertebral disc degeneration, lumbar region (principal); M47.816 Spondylosis without myelopathy or radiculopathy, lumbar region; G89.29 Other chronic pain; Z88.6 Allergy status to analgesic agent; Z87.891 Personal history of nicotine dependence
CPT/HCPCS: 99211

== ENCOUNTER 2022-07-17 07:42 | Day surgery (SDC) | payer MEDICARE, OTHER ==
[2022-07-17 08:18] VITALS: TEMP 97.4
[2022-07-17] MEDS ORDERED: LACTATED RINGERS 1,000 ML IV ONE (08:27)
[2022-07-17] MEDS ORDERED: ROPIVACAINE 5 MG/ML 20 ML AMPULE ONE (08:44)
[2022-07-17] MEDS ORDERED: methylPREDNISolone ACETATE 80 MG/ML 1 ML VIAL ONE (08:44)
[2022-07-17] MEDS ORDERED: MIDAZOLAM 2 MG/2 ML VIAL ONE (08:44)
[2022-07-17] MEDS ORDERED: fentaNYL (PF) 50 MCG/ML 2 ML AMP ONE (08:44)
[2022-07-17] MEDS ORDERED: LACTATED RINGERS 1,000 ML IV SCH (08:45)
--- NOTE | 2022-07-17 08:56 | P.PCN ---
Date of Procedure: 07/17/22 Description of Procedure: PREOPERATIVE DIAGNOSIS: Occipital neuralgia, and headaches POSTOPERATIVE DIAGNOSIS: Occipital neuralgia, and headaches PROCEDURES: 1. Bilateral Greater occipital nerve block SURGEON: Albert Pickett ANESTHESIA: Local and IV sedation : Versed 2 mg, and fentanyl 50 g. Sedation supervision times: [id number] EBL: None. Specimen removed: None PROCEDURE INDICATIONS: This patient with a history of chronic headaches, and occipital neuralgia. Patient tried conservative therapy. Came here for intervention management. Procedure and Findings: The patient was seen and examined and written informed consent was obtained after explaining the risks, benefits and alternative of the procedure to the patient. As per patient request for anxiety IV was started in the preoperative holding area for sedation. The patient was positioned in the sitting position with the head slightly flexed and forehead rested on a pillow. By palpation, right side the external occipital protuberance and mastoid process were identified and mid point in between was located. The target point for greater occipital nerve was just medial to the occipital artery pulsation. The skin preparation was done with ChloraPrep X2 and sterile technique was observed throughout the procedure. A 25-guage, 1.5 inch needle was used for the procedure. A 25-gauge 1.5 inch needle was placed vertically downward, bony contact was obtained, negative aspiration was confirmed and 8 ml solution was injected. The needle was redirected little medially and laterally in a fanning fashion and addition medication was injected after negative aspiration. The block solution containing 0.5% preservative-free bupivacaine 5 mL +40 MG of Depo-Medrol. The needle was removed. Entire procedure repeated on the left side. Needle was removed. needle puncture sites were cleaned and pressure was applied. The patient tolerated the procedure very well. COMPLICATIONS: None. DISPOSITION / PLANS: The patient was placed in a supine position and transferred to the recovery area in a stable condition for observation and was discharged from the recovery room after meeting discharge criteria. Home discharge instructions given to the patient by the staff. The patient was reexamined prior to discharge. The patient will schedule for follow-up visit with the pain clinic in 2-4 weeks duration
[2022-07-17] MEDS ORDERED: IV FLUID CONTINUATION 1,000 ML IV ONE (08:57)
[2022-07-17 09:05] VITALS: RESP 16
[2022-07-17 09:14] VITALS: BP 131/78; PULSE 86
== END 2022-07-17 09:27 | disposition home or self-care (01) ==
LOC: ORPAIN 07:42
PROVIDERS: ATTEND Anesthesiology
DX: M54.81 Occipital neuralgia (principal); G89.29 Other chronic pain; F10.90 Alcohol use, unspecified, uncomplicated; F12.90 Cannabis use, unspecified, uncomplicated; I10 Essential (primary) hypertension; F32.A Depression, unspecified; G40.909 Epilepsy, unspecified, not intractable, without status epilepticus; M19.90 Unspecified osteoarthritis, unspecified site; Z88.6 Allergy status to analgesic agent; Z86.73 Personal history of transient ischemic attack (TIA), and cerebral infarction without residual deficits; Z90.49 Acquired absence of other specified parts of digestive tract; Z98.890 Other specified postprocedural states
CPT/HCPCS: 64405; J2250; J1040; J3010; J2795

== ENCOUNTER → 2022-08-07 | Outpatient (CLI) | payer MEDICARE, OTHER ==
[2022-08-07 12:43] VITALS: BP 133/73; PULSE 91; RESP 16; TEMP 98.1
--- NOTE | 2022-08-07 14:13 | P.PAINPG ---
PQRS Measure Charge Sheet Comment: A 62 yr old male w at side with a history of severe and chronic neck pain secondary to cervicogenic GILMORE and occipital neuralgia presents today for evaluation s/p BL KD injections. Pt states he experienced 75 % pain relief x 3 wks s/p procedure. Pain level is provoked at 8 /10 in intensity, constant, lo calized in the cervical spine, dull in character w/o shooting pain. Pain is provoked by bright lights and rotation. Pain is alleviated with medications, THC products, injections, repositioning and rest. Interventional pain procedures completed include BL KD Patient is currently on Tyl Patient denies any side effects of the medication(s), denies excessive drowsiness or sleepiness, denies suicidal ideation and reports that the current pain medication is helping to control the pain and improve activities of daily living. Patient denies any motor or sensory deficits. Patient denies any fever or night sweats, denies any change in the bowel movements or urination. Physical Examination: -Constitutional: Cooperative. Not in acute distress . - Neurologic: Cranial nerve II to XII intact. No focal neurological deficits. - Psychatric: Alert & oriented x 3. Matching mood & appropriate affect. Judgment and insight intact. - Musculoskeletal: Cervical spine: Muscle bulk/ tone/ strength in the bilateral upper extremities normal Vertebral body tenderness to palpation over Spurling test positive Distraction test positive BL paraspinal TTP C2-T1 Facet loading test positive TTP Thoracic spine Muscle bulk / tone/ strength in the bilateral paraspinal muscles normal Vertebral body tender to palpation over Facet loading test positive TTP Lumbar spine: Motor bulk/ tone/ strength lower extremities , thigh and legs : 5/5 Deep tendon reflexes : Normal Knee Jerk. Normal Ankle Jerk . Vertebral body tenderness to palpation over Lumbar Facet Loading Test positive Straight Leg Raise: positive at 30 degrees right side/ left side Gaenslen's Test positive Sacral spine : Severe tenderness over the Sacroiliac joint: right side / left side Range of motion: Flexion of the lumbar spine <60 degrees Range of motion: Extension of the lumbar spine <20 degrees Gaenslen's Test positive R / L Ebony test: positive right side / left side Thigh Thrust Test positive R / L Sacral Thrust Test positive R/ L Assessment and plan: Chronic neck pain secondary to cervical DDD, spondylosis with facet arthropathy without myelopathy Recommendation of BL TPIs C2-T1. May need a series of injections for optimal pain relief. Risks, benefits of procedure discussed and pt verbalized understanding. Admits to anticoagulant use or medical history of diabetes. Protocol for discontinuation/ continuation of medications mich procedure discussed. All questions answered. I have spent less than 30 minutes on patient care today. Dr Chi was available by phone for the evaluation of this patient. The time was used to review the medical records including relevant urine studies and Prescription history (MAPs), review of the available imaging, evaluation and examination of the patient, coordination of care with the medical staff and if applicable referring physicians, as well as creation of the medical record PQRS Narrative: Smoking Status Former smoker Hx Alcohol Use (MH) Yes: 15 PACK PER DAY. Home Medications: Ambulatory Orders amLODIPine BESYLATE [Norvasc] 10 mg PO DAILY 03/07/15 allopurinoL [Zyloprim] 300 mg PO DAILY 04/10/18 Albuterol Inhaler [Ventolin Hfa Inhaler] 2 puff INHALATION RT-QID PRN 05/04/20 lisinopriL [Prinivil] 20 mg PO DAILY 02/26/21 Atorvastatin [Lipitor] 20 mg PO DAILY 04/19/21 levETIRAcetam [Keppra] 500 mg PO Q12HR 04/19/21 Zolpidem [Ambien] 5 mg PO HS PRN 04/24/21 Controlled Substance Measures - Controlled Substance Measures Is patient prescribed a controlled substance at discharge?: No
== END ==
LOC: PNWHC3 09:53
PROVIDERS: ATTEND Specialist
DX: M50.30 Other cervical disc degeneration, unspecified cervical region (principal); M47.812 Spondylosis without myelopathy or radiculopathy, cervical region; G89.29 Other chronic pain; Z87.891 Personal history of nicotine dependence; Z88.6 Allergy status to analgesic agent
CPT/HCPCS: 99211

== ENCOUNTER 2022-08-24 18:45 | Emergency (ER) | payer MEDICARE, OTHER ==
[2022-08-24 18:49] VITALS: TEMP 97.9
[2022-08-24] MEDS ORDERED: LORazepam 2 MG/ML INJ IV STA (19:07)
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
--- NOTE | 2022-08-24 19:19 | XR ---
EXAMINATION TYPE: XR chest 2V DATE OF EXAM: 08/24/2022 COMPARISON: 02/26/21 HISTORY: Shortness of breath TECHNIQUE: Frontal and lateral views of the chest are obtained. FINDINGS: Scattered senescent parenchymal changes noted No evidence for infiltrate. No evidence for atelectasis. Heart size is stable. Mediastinal structures are stable and grossly unremarkable. No evidence for hilar prominence. Degenerative changes dorsal spine. IMPRESSION: 1. No evidence for acute pulmonary disease.
[2022-08-24 19:36] LABS: Basophils # (A) 0.1 k/uL (0-0.2); Basophils % (A) 0 %; Eosinophils # (A) 0.2 k/uL (0-0.7); Eosinophils % (A) 2 %; HCT 45.3 % (39.0-53.0); HGB 15.2 gm/dL (13.0-17.5); Lymphocytes # (A) 3.9 k/uL (1.0-4.8); Lymphocytes % (A) 35 %; MCH 33.2 pg (25.0-35.0); MCHC 33.6 g/dL (31.0-37.0); MCV 98.7 fL (80.0-100.0); Mean Platelet Volume 7.5; Monocytes # (A) 0.9 k/uL (0-1.0); Monocytes % (A) 8 %; Neutrophils # (A) 5.7 k/uL (1.3-7.7); Neutrophils % (A) 51 %; Platelet Count 249 k/uL (150-450); RBC 4.59 m/uL (4.30-5.90); RDW 13.4 % (11.5-15.5)
[2022-08-24 19:47] LABS: ALT 44 U/L (4-49); AST 48 U/L (17-59); African American GFR (CKD) >90 (>60 ml/min/1.73 sqM); Albumin 4.7 g/dL (3.5-5.0); Alcohol 52 mg/dL; Alkaline Phosphatase 75 U/L (38-126); Anion Gap 16 mmol/L; Blood Urea Nitrogen 9 mg/dL (9-20); Calcium 9.1 mg/dL (8.4-10.2); Carbon Dioxide 22 mmol/L (22-30); Chloride 101 mmol/L (98-107); Glucose 77 mg/dL (74-99); Non-African American GFR(CKD) >90 (>60 ml/min/1.73 sqM); Potassium 3.5 mmol/L (3.5-5.1); Sodium 139 mmol/L (137-145); Total Bilirubin 0.5 mg/dL (0.2-1.3); Total Protein 7.4 g/dL (6.3-8.2)
[2022-08-24] MEDS ORDERED: HYDROmorphone 1 MG/ML 1 ML SYRINGE IVP STA (19:58)
[2022-08-24] MEDS ORDERED: SODIUM CHLORIDE 0.9% 500 ML 500 ML IV STA (19:58)
[2022-08-24 20:47] VITALS: RESP 18
[2022-08-24 21:09] VITALS: BP 144/88; PULSE 98
== END 2022-08-24 21:09 | disposition home or self-care (01) ==
LOC: EC 18:45
DX: R51.9 Headache, unspecified (principal); F41.9 Anxiety disorder, unspecified; E78.5 Hyperlipidemia, unspecified; I10 Essential (primary) hypertension; M19.90 Unspecified osteoarthritis, unspecified site; F32.A Depression, unspecified; Z79.1 Long term (current) use of non-steroidal anti-inflammatories (NSAID); Z79.899 Other long term (current) drug therapy; Z88.6 Allergy status to analgesic agent; Z87.891 Personal history of nicotine dependence; Z86.73 Personal history of transient ischemic attack (TIA), and cerebral infarction without residual deficits
CPT/HCPCS: 36415; 93005; 80053; 85025; 71046; 99285; 96374; 96375; G0480; J2060; J1170; 80320

== ENCOUNTER 2022-09-04 08:12 | Day surgery (SDC) | payer MEDICARE, OTHER ==
[~2022-09-04 08:12] MED LIST changes: -IV FLUID CONTINUATION 1,000 ML IV ONE; -MIDAZOLAM 2 MG/2 ML VIAL ONE; -ROPIVACAINE 5MG/ML 20ML VIAL ONE; -fentaNYL (PF) 50 MCG/ML 2 ML AMP ONE; -methylPREDNISolone ACETATE 80 MG/ML 1 ML VIAL ONE
[2022-09-04 08:46] VITALS: TEMP 98
[2022-09-04] MEDS ORDERED: ROPIVACAINE 5 MG/ML 20 ML AMPULE ONE (09:12)
[2022-09-04] MEDS ORDERED: MIDAZOLAM 2 MG/2 ML VIAL ONE (09:12)
[2022-09-04] MEDS ORDERED: fentaNYL (PF) 50 MCG/ML 2 ML AMP ONE (09:12)
[2022-09-04] MEDS ORDERED: methylPREDNISolone ACETATE 40 MG/ML 1 ML VIAL ONE (09:12)
--- NOTE | 2022-09-04 09:22 | P.PCN ---
Date of Procedure: 09/04/22 Procedure(s) Performed: Procedure= trigger point injections cervical and thoracic paraspinal muscles bilaterally , 4 on the right side from C2 , to T1, and 5 on the left side from C2 to T1 Preoperative diagnosis= 1-myofascial pain syndrome cervical paraspinal muscles 2-cervical degenerative disc disease 3-cervical facet arthropathy Postoperative diagnosis=Same as preop Diagnosis . Complication = none Condition= stable Anesthesia= moderate sedation with Versed 2 mg. and fentanyl 100 g Sedation started at 0912 ,end at 0917 Indication for the procedure= patient complaining of severe neck pain , examination was positive for multiple trigger point in the cervical paraspinal muscles bilaterally and patient diagnosed with myofascial pain syndrome and is here to have trigger point injections Description of the procedure= procedure risk and benefits discussed with the patient, including but not limited, risk of infection and bleeding, and ALLERGIC reaction to the medication and not complete pain relief and patient agreed with the preceding patient taken to the operating room, placed in sitting position or standard monitors applied to the patient then after induction of anesthesia back prepped with chlorhexidine 3 times , then under sterile technique each of the trigger point that was marked in the preop holding area 4 on the right side cervical paraspinal muscles and 5 on the left side cervical paraspinal muscles each one of them injected with the 2 mL of the mixture of ropivacaine 0.5% 18 ML mixed with 40 mg of Depo-Medrol and 2 mL of the mixture injected at each trigger point after negative aspiration, using 25-gauge needle, injection done after negative aspiration under was no paresthesia during the injection patient tolerated the procedure well without any complications and he will follow up in the pain clinic in a few weeks
[2022-09-04] MEDS ORDERED: IV FLUID CONTINUATION 1,000 ML IV ONE (09:23)
[2022-09-04 09:26] VITALS: RESP 16
[2022-09-04 09:42] VITALS: BP 128/84; PULSE 74
== END 2022-09-04 09:57 | disposition home or self-care (01) ==
LOC: ORPAIN 08:12
PROVIDERS: ATTEND Specialist
DX: M79.18 Myalgia, other site (principal); M50.33 Other cervical disc degeneration, cervicothoracic region; M47.812 Spondylosis without myelopathy or radiculopathy, cervical region; Z88.6 Allergy status to analgesic agent
CPT/HCPCS: 20553; J2250; J1030; J3010; J2795

== ENCOUNTER → 2022-09-25 | Outpatient (CLI) | payer MEDICARE, OTHER ==
[2022-09-25 10:29] VITALS: BP 129/83; PULSE 69; RESP 18; TEMP 98.2
--- NOTE | 2022-10-02 10:27 | P.PAINPG ---
PQRS Measure Charge Sheet Comment: A 62 yr old male w sister at side with a history of severe and chronic neck pain secondary to cervical DDD and spondylosis with facet arthropathy without myelopathy presents today for evaluation s/p Cervical TPIs. Pt states he experienced 90% pain relief s/p procedure. Pain level is provoked at 0/10 in intensity. Pain is alleviated with injections. Interventional pain procedures completed include Cervical TPIs Patient is currently on DENIES Patient denies any side effects of the medication(s), denies excessive drowsiness or sleepiness, denies suicidal ideation and reports that the current pain medication is helping to control the pain and improve activities of daily living. Patient denies any motor or sensory deficits. Patient denies any fever or night sweats, denies any change in the bowel movements or urination. Physical Examination: -Constitutional: Cooperative. Not in acute distress . - Neurologic: Cranial nerve II to XII intact. No focal neurological deficits. - Psychatric: Alert & oriented x 3. Matching mood & appropriate affect. Judgment and insight intact. - Musculoskeletal: Cervical spine: Muscle bulk/ tone/ strength in the bilateral upper extremities normal Vertebral body tenderness to palpation over Spurling test positive Distraction test positive Facet loading test positive TTP Thoracic spine Muscle bulk / tone/ strength in the bilateral paraspinal muscles normal Vertebral body tender to palpation over Facet loading test positive TTP Lumbar spine: Motor bulk/ tone/ strength lower extremities , thigh and legs : 5/5 Deep tendon reflexes : Normal Knee Jerk. Normal Ankle Jerk . Vertebral body tenderness to palpation over Lumbar Facet Loading Test positive Straight Leg Raise: positive at 30 degrees right side/ left side Gaenslen's Test positive Sacral spine : Severe tenderness over the Sacroiliac joint: right side / left side Range of motion: Flexion of the lumbar spine <60 degrees Range of motion: Extension of the lumbar spine <20 degrees Gaenslen's Test positive R / L Ebony test: positive right side / left side Thigh Thrust Test positive R / L Sacral Thrust Test positive R/ L Assessment and plan: Chronic neck pain secondary to cervical DDD, spondylosis with facet arthropathy without myelopathy Admits to substantial pain relief s/p procedure. Pt will manage residual pain at home. May return to clinic as needed. All questions answered. I have spent less than 30 minutes on patient care today. Dr Chi was available by phone for the evaluation of this patient. The time was used to review the medical records including relevant urine studies and Prescription history (MAPs), review of the available imaging, evaluation and examination of the patient, coordination of care with the medical staff and if applicable referring physicians, as well as creation of the medical record PQRS Narrative: Smoking Status Former smoker Hx Alcohol Use (MH) Yes: 15 PACK PER DAY. Home Medications: Ambulatory Orders amLODIPine BESYLATE [Norvasc] 10 mg PO DAILY 03/07/15 allopurinoL [Zyloprim] 300 mg PO DAILY 04/10/18 Albuterol Inhaler [Ventolin Hfa Inhaler] 2 puff INHALATION RT-QID PRN 05/04/20 lisinopriL [Prinivil] 20 mg PO DAILY 02/26/21 Atorvastatin [Lipitor] 20 mg PO HS 04/19/21 levETIRAcetam [Keppra] 500 mg PO Q12HR 04/19/21 Zolpidem [Ambien] 5 mg PO HS PRN 04/24/21 Acetaminophen [Tylenol Arthritis] 1,300 mg PO Q8H PRN 08/24/22 Celecoxib [CeleBREX] 200 mg PO DAILY 08/24/22 FLUoxetine HCL [PROzac] 20 mg PO DAILY 08/24/22 Controlled Substance Measures - Controlled Substance Measures Is patient prescribed a controlled substance at discharge?: No
== END ==
LOC: PNWHC3 09:51
PROVIDERS: ATTEND Specialist
DX: M50.30 Other cervical disc degeneration, unspecified cervical region (principal); M47.812 Spondylosis without myelopathy or radiculopathy, cervical region; G89.29 Other chronic pain; Z87.891 Personal history of nicotine dependence; Z88.6 Allergy status to analgesic agent
CPT/HCPCS: 99211

== ENCOUNTER → 2022-12-04 | Outpatient (CLI) | payer MEDICARE, OTHER ==
[2022-12-04 11:55] LABS: INR 0.9 (<1.2); Partial Thromboplastin Time 24.6 sec (22.0-30.0); Prothrombin Time 9.8 sec (9.0-12.0)
[2022-12-04 15:23] LABS: ALT 58 U/L (10-49); AST 49 U/L (14-35); Albumin 4.8 d/dL (3.8-4.9); Albumin/Globulin Ratio 2.09 Ratio (1.60-3.17); Alkaline Phosphatase 71 U/L (41-126); BUN/Creat Ratio 19.57 Ratio (12.00-20.00); Blood Urea Nitrogen 13.7 mg/dL (9.0-27.0); Calcium 10.3 mg/dL (8.7-10.3); Carbon Dioxide 27.5 mmol/L (21.6-31.8); Chloride 98 mmol/L (96-109); Globulin 2.3 d/dL (1.6-3.3); Glucose 85 mg/dL (70-110); Potassium 5.2 mmol/L (3.5-5.5); Sodium 137 mmol/L (135-145); Total Bilirubin 0.3 mg/dL (0.3-1.2); Total Protein 7.1 d/dL (6.2-8.2)
[2022-12-04 17:52] LABS: HCT 45.8 % (39.6-50.0); HGB 15.4 d/dL (13.0-17.0); MCH 32.6 pg (27.0-32.0); MCHC 33.6 d/dL (32.0-37.0); Mean Platelet Volume 10.2 FL (9.5-12.2); NRBC Per 100 WBC 0 X 10*3/uL (0.00-0.01); Platelet Count 221 X 10*3/uL (140-440); RBC 4.72 X 10*6/uL (4.40-5.60); RDW 13.3 % (11.5-14.5); WBC 7.45 X 10*3/uL (4.50-10.00)
== END | disposition home or self-care (01) ==
LOC: LABWHC1 09:31
PROVIDERS: ATTEND Orthopaedic Surgery
DX: Z01.812 Encounter for preprocedural laboratory examination (principal); E11.9 Type 2 diabetes mellitus without complications; M16.12 Unilateral primary osteoarthritis, left hip; I44.4 Left anterior fascicular block; I49.2 Junctional premature depolarization; R94.31 Abnormal electrocardiogram [ECG] [EKG]
CPT/HCPCS: 36415; 80053; 83036; 85027; 85610; 85730; 87070; 93005

== ENCOUNTER 2022-12-10 11:13 | Day surgery (SDC) | payer MEDICARE, OTHER ==
[~2022-12-10 11:13] MED LIST changes: +ACETAMINOPHEN TAB 500 MG TAB PO PRN; +DEXAMETHASONE SOD PHOSPHATE 10 MG/ML 1 ML VIAL IV PRN; +DOCUSATE 100 MG CAP PO PRN; +FAMOTIDINE 20 MG/2 ML VIAL IVP PRN; +KETOROLAC 15 MG/ML 1 ML VIAL IVP PRN; -LACTATED RINGERS 1,000 ML IV SCH; -LIDOCAINE 1% (10MG/ML) FOR IV START INTRADERMA PRN; +ONDANSETRON 4 MG/2 ML VIAL IVP PRN; +TRANEXAMIC 1,000 MG/100ML-NACL 1,000 MG in SALINE 1 100ML.BAG IV PRN; +TRANEXAMIC 1,000 MG/100ML-NACL 1,000 MG in SALINE 1 100ML.BAG IVPB PRN; +oxyCODONE ER 10 MG TAB.ER.12H PO PRN
[2022-12-10] MEDS ORDERED: LIDOCAINE 1% (10MG/ML) FOR IV START INTRADERMA PRN (11:41)
[2022-12-10] MEDS: LACTATED RINGERS 1,000 ML IV SCH ×3 (12:10→21:32)
[2022-12-10] MEDS ORDERED: MIDAZOLAM 2 MG/2 ML VIAL IVP ONE (12:53)
[2022-12-10] MEDS ORDERED: ROPIVACAINE 5 MG/ML 30 ML VIAL ONE (13:06)
[2022-12-10] MEDS ORDERED: MIDAZOLAM 2 MG/2 ML VIAL ONE (13:06)
[2022-12-10] MEDS ORDERED: LIDOCAINE 2% INJ 20 MG/ML (2 ML VIAL) ONE (13:06)
[2022-12-10] MEDS ORDERED: ROCURONIUM 10 MG/ML (5 ML VIAL) IV ONE (13:06)
[2022-12-10] MEDS ORDERED: DEXAMETHASONE SOD PHOSPHATE 4 MG/ML 1 ML VIAL ONE (13:06)
[2022-12-10] MEDS ORDERED: PHENYLEPHRINE-0.9% NACL SYG 1,000 MCG/10 ML SYRINGE ONE (13:06)
[2022-12-10] MEDS ORDERED: GLYCOPYRROLATE 0.2 MG/ML 2 ML VIAL ONE (13:06)
[2022-12-10] MEDS ORDERED: NEOSTIGMINE 1 MG/ML 10 ML VIAL ONE (13:06)
[2022-12-10] MEDS ORDERED: fentaNYL (PF) 50 MCG/ML 2 ML AMP ONE (13:06)
[2022-12-10] MEDS ORDERED: TRANEXAMIC 1,000 MG/100ML-NACL PREMIX BAG ONE (13:06)
[2022-12-10] MEDS ORDERED: PROPOFOL 10 MG/ML 20 ML VIAL IV ONE (13:06)
[2022-12-10] MEDS ORDERED: SUCCINYLCHOLINE CHLORIDE 200 MG/10 ML VIAL IV ONE (13:06)
[2022-12-10] MEDS ORDERED: ePHEDrine 50 MG/ML 1 ML VIAL ONE (13:06)
[2022-12-10] MEDS ORDERED: LACTATED RINGERS 1,000 ML IV ONE (13:51)
[2022-12-10] MEDS: ROPIVACAINE/EPI/CLONIDINE/KET 50 ML SYRINGE MISCELLANE PRN ×2 (13:53→14:42)
--- NOTE | 2022-12-10 15:03 | XR ---
Intraoperative/procedural fluoroscopic services were provided for total left hip arthroplasty. Total fluoroscopy time is 39.6 seconds with a total of 6 submitted images to PACS. Total DAP 2.4844 Gycm2. Please see the operative note for further details.
[2022-12-10] MEDS ORDERED: HYDROcodone/APAP 5-325MG 1 EACH TAB PO PRN (15:26)
[2022-12-10] MEDS ORDERED: NALOXONE 0.4 MG/ML 1 ML VIAL IV PRN (15:26)
[2022-12-10] MEDS ORDERED: hydrOXYzine pamoate 25 MG CAP PO PRN (15:26)
[2022-12-10] MEDS ORDERED: HYDROmorphone 0.5 MG/0.5 ML SYRINGE IVP PRN ×2 (15:26)
[2022-12-10] MEDS ORDERED: ONDANSETRON 4 MG/2 ML VIAL IVP PRN (15:26)
[2022-12-10] MEDS: HYDROmorphone 0.5 MG/0.5 ML SYRINGE IVP PRN ×2 (15:30→15:45)
--- NOTE | 2022-12-10 15:33 | P.OP ---
Date of Procedure: 12/10/22 Preoperative Diagnosis: 1. Severe left hip osteoarthritis 2. History of alcohol abuse 3. History of DVT 4. History of traumatic brain injury requiring surgery Postoperative Diagnosis: Same Procedure(s) Performed: Right direct anterior total hip arthroplasty Implants: 1. Or[place] Trident II Acetabular Cup, Size #56 2. Aminta Insignia Size # Femoral Stem, High Offset 3. Dual Mobility OD 46 mm, ID 28 mm,-4 neck Anesthesia: GETA, regional Surgeon: Ton Garrett Gate Person #1: Adan Royal Estimated Blood Loss (ml): 200 IV fluids (ml): 800 Pathology: none sent Condition: stable Disposition: PACU Indications for Procedure: I had a long discussion with the patient in the office on the potential risks and complications of an elective total hip replacement through a direct anterior approach. Risks discussed include, but are certainly not limited to, risks from anesthesia, superficial infection requiring local wound care or antibiotics, deep mich-prosthetic joint infection and the treatment required to eradicate infection, intraoperative fracture, postoperative periprosthetic fracture, damage to local blood vessels or nerves particularly the lateral femoral cutaneous nerve, delayed wound healing requiring local wound care or possibly surgical debridement, hip dislocation, leg length discrepancy, soft tissue irritation around the total hip implant such as iliopsoas tendinitis or trochanteric bursitis, wear and osteolysis from the implants, squeaking or audible noises, groin pain, thigh pain, heterotopic ossification, stiffness, aseptic loosening of the implants, dissatisfaction with surgical outcome, need for revision surgery, DVT, PE, swelling of the operative extremity, acute coronary event, stroke, failure to thrive, and possibly loss of life or limb. The patient understands that while these are the most common complications after an elective hip replacement there are certainly other less common complications possible. They were given ample time to ask questions regarding the potential complications of a hip replacement. Following our discussion the patient provided their verbal and written consent to go forward with an elective total hip replacement. The patient also has a history of alcohol use and lives alone. Prior to surgery I met with the patient and his sisters in the office. We discussed the potential risks and catastrophic complications if he were to have a fall from drinking. The patient's assured me that he would be looked after and would either have somebody stay with him or would stay with one of them. Operative Findings: Severe left hip osteoarthritis Description of Procedure: The patient was identified in the preoperative holding area and the correct hip was marked with my initials. I reviewed the procedure and consent with the patient. All of their questions were answered. The patient was then brought back into the operating room by anesthesia. While on the [facility] anesthesia was administered by the anesthesia team. Preoperative antibiotics and tranexamic acid were also given. After the patient was under anesthesia I examined their ankles to determine their preoperative leg length discrepancy. The skin over the anterior aspect of the hip was shaved to remove hair over the site of planned incision. Both feet and ankles were padded with webril and boots for the Energy were applied. The patient was then carefully transferred onto the Energy table. A perineal post was immediately placed. The arms were placed on arm holders and were well-padded. Both boots were secured to the spars on the Energy table. The patient was positioned so that the pelvis was centered over the post. Nonsterile drapes were applied. A timeout was performed identifying the correct patient, operative extremity, and procedure. At this point fluoroscopy was brought in to take preoperative images of the pelvis and operative hip. Using the standing AP pelvis from the office as a template, a comparable image was obtained with fluoroscopy. A metallic bar was used to create a bi-ischial line for use as a reference to leg length adjustments during the procedure. Global offset was also measured on both the operative and nonoperative leg. Fluoroscopy was then brought out and a pre-scrub using a chlorhexidine scrub brush was performed. The operative limb was then prepped and draped in the standard sterile fashion. An anterior longitudinal incision was made lateral and distal to the ASIS. The skin and subcutaneous tissues were incised sharply. The underlying tensor fa scia was identified and incised in its midportion. The fascia was dissected free from the underlying muscle and the muscle belly was retracted. A blunt tipped cobra retractor was placed over the superior neck under the muscle fibers of the gluteus minimus. The deep enveloping fascia of the tensor was incised. The anterior leash of vessels were then identified and cauterized. The fascia between the rectus and the capsule was then incised and the pre-capsular fat was excised. A second Cobra was placed inferior to the neck. The interval between the rectus and iliocapsularis and the hip capsule was developed and a retractor was placed carefully over the anterior rim of the acetabulum. A T-shaped anterior capsulotomy was performed. The superior capsular leaflet was left in place in the inferior capsular flap was excised. The Cobra retractors were placed intracapsularly. We then made a femoral neck osteotomy according to preoperative and intraoperative templating and confirmed the level of the osteotomy using fluoroscopic imaging. The femoral head was removed, passed off to the back table, and sized. The superior capsular flap was excised. Retractors were placed circumferentially exposing the acetabulum. We then circumferentially debrided the acetabulum free of labrum and osteophytes. The pulvinar was removed to fully visualize the cotyloid fossa. We then sequentiall y reamed to achieve peripheral fit and excellent bleeding subchondral bone. The socket was thoroughly irrigated. The acetabular component was impacted into the appropriate position using fluoroscopy to guide version, inclination, and depth of insertion taking care to have a comparable image of the AP pelvis to the standing image taken in the office. An excellent press-fit was achieved and final position was confirmed using fluoroscopy. The press fit was augmented with bony cancellus dome screws. The liner was then impacted into the socket. Attention was then turned to the femur. The remnant dorsal lateral capsule was excised. The short external rotators were visible and protected. A bone hook was used to confirm appropriate translation of the trochanter away from the acetabulum. The leg was then extended and adducted and the bone hook was used to elevate the femur for broaching. A box osteotome and blunt tipped canal sound was then utilized to gain access to the femoral canal. We then sequentially broached the femur in appropriate anteversion until excellent torsional stability was achieved. The neck cut was brought flush to the trial broach with a calcar planar. A trial neck and head were then placed onto the broach and the hip was atraumatically reduced under direct visualization. External rotation to 90 was performed to assess stability. Fluoroscopy was brought in. An AP and lateral fluoroscopic image of the proximal femur was obtained to assess position and fill of the trial broach. An AP of the pelvis was then obtained and matched to the preoperative image taken. A bi-ischial bar was then placed and measurements were taken to assess changes in length and offset. The hip was then carefully dislocated, the proximal femur was exposed, and the trial implants were removed. The wound and proximal femur was thoroughly irrigated using sterile saline and pulsatile lavage. The final femoral implant was dispensed and gently tapped into place generating an excellent press-fit. The trunnion was cleansed and the final head was tapped into place to engage the Austin taper. The acetabulum was irrigated and visualized to be free of debris. The hip was carefully reduced. Stability was checked clinically with external rotation to 90 and there was no evidence of instability. Final fluoroscopic images were taken. The wound was then thoroughly irrigated and soaked with a dilute Betadine rinse for 3 minutes. 3 L of sterile saline was irrigated through the wound using pulsatile lavage. Local anesthetic cocktail was injected into the soft tissues around the surgical field. A deep drain was placed. The wound was then closed in layers. A sterile dressing was placed over the surgical incision and drain site. The drapes were taken down and the patient was carefully transferred off of the Energy table. Following removal of the boots the leg lengths felt acceptable. The patient was then taken to recovery room having tolerated the procedure well. Adan Royal PA-C was required as a skilled marketing assistant manager for patient positioning, surgical exposure, retraction, placement of implants, and closure of the surgical wound. PLAN: The patient can weight-bear as tolerated on the operative extremity. 2 doses of postoperative antibiotics. DVT prophylaxis with Xarelto given his history of DVT. Physical therapy for gait training. Discontinue drain postoperative day #1 if output is less than 100 mL per shift. Given the patient's history of alcohol use and living alone he may benefit from inpatient rehab following surgery. We'll consult social work and see how he does with therapy.
[2022-12-10] MEDS ORDERED: HYDROmorphone 0.5 MG/0.5 ML SYRINGE IVP ONE (16:10)
[2022-12-10] MEDS ORDERED: ALBUTEROL NEBULIZED 2.5 MG/3 ML INHALATION PRN (17:34)
[2022-12-10] MEDS ORDERED: ZOLPIDEM 5 MG TAB PO PRN (17:34)
[2022-12-10] MEDS: HYDROmorphone 1 MG/ML 1 ML SYRINGE IVP PRN ×2 (18:21→22:54)
[2022-12-10] MEDS ORDERED: LORazepam 2 MG/ML INJ IV PRN ×2 (18:27)
[2022-12-10] MEDS: METOPROLOL TARTRATE 12.5 MG TAB PO SCH ×2 (18:39→20:56)
[2022-12-10] MEDS: HYDROcodone/APAP 5-325MG 1 EACH TAB PO PRN (18:40)
--- NOTE | 2022-12-10 20:41 | P.ANPRN ---
Procedure Note - Anesthesia - Nerve Block Performed Left Christopher Single Time Out Performed: Yes Date of Procedure: 12/10/22 Procedure Start Time: 12:53 Procedure Stop Time: 12:57 Location of Patient: PreOp Indication: Acute Post-Operative Pain, Requested by Surgeon Sedation Type: Sedate with meaningful contact maintained Preparation: Sterile Prep Position: Supine Needle Types: Pajunk Needle Gauge: 21 Ultrasound used to visualize needle placement: Yes Ultrasound used to observe medication spread: Yes Blood Aspirated: No Pain Paresthesia on Injection Noted: No Resistance on Injection: Normal Image Stored and Saved: Yes Events: Uneventful and Well Tolerated (ropi .5% 20cc plus dexamethasone 4mg)
[2022-12-10] MEDS: SENNOSIDES-DOCUSATE SODIUM 1 EACH TAB PO SCH (20:48)
[2022-12-10] MEDS: levETIRAcetam 500 MG TAB PO SCH (20:49)
[2022-12-10] MEDS: diazePAM 5 MG TAB PO SCH (20:49)
[2022-12-10] MEDS: ATORVASTATIN 20 MG TAB PO SCH (20:49)
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
[2022-12-11 02:13] VITALS: RESP 18
[2022-12-11 07:19] LABS: Basophils % (A) 0 %; Eosinophils # (A) 0.2 k/uL (0-0.7); Eosinophils % (A) 1 %; HGB 12.6 gm/dL (13.0-17.5); Lymphocytes % (A) 4 %; MCH 33.4 pg (25.0-35.0); MCHC 33.2 g/dL (31.0-37.0); MCV 100.5 fL (80.0-100.0); Mean Platelet Volume 8.5; Monocytes # (A) 1.5 k/uL (0-1.0); Monocytes % (A) 6 %; Neutrophils # (A) 23.3 k/uL (1.3-7.7); Neutrophils % (A) 90 %; Platelet Count 175 k/uL (150-450); RBC 3.78 m/uL (4.30-5.90); RDW 12.8 % (11.5-15.5); WBC 26.1 k/uL (3.8-10.6)
--- NOTE | 2022-12-11 08:23 | P.PN ---
Subjective Progress Note Date: 12/11/22 This patient is a 62-year-old male who is status-post left direct anterior total hip arthroplasty on 12/10/22. Today is postoperative day #1. The patient is examined bedside with Dr. Garrett. He is experiencing minimal pain in the left hip. He is able to ambulate with a walker this morning. No new complaints. Objective - Vital Signs Vital signs: Vital Signs Temp 98.1 F 12/11/22 01:50 Pulse 77 12/11/22 01:50 Resp 18 12/11/22 01:50 BP 107/69 12/11/22 01:50 Pulse Ox 96 12/11/22 01:50 FiO2 Intake & Output 12/10/22 12/11/22 12/11/22 18:59 06:59 18:59 Intake Total 1650 1780 Output Total 200 700 Balance 1450 1080 Weight 98.1 kg Intake: IV 1650 Intake, IV Titration 1300 Amount Lactated Ringers 1,000 ml 1200 @ 100 mls/hr IV .Q10H DINORAH Rx#:[id number] ceFAZolin 2 gm In Sodium 100 Chloride 0.9% 50 ml @ 100 mls/hr IVPB Q8H DINORAH Rx#: [id number] Oral 480 Output: Drainage 250 Left Hip 250 Urine 450 Estimated Blood Loss 200 - Exam On examination, patient is sitting up in bed in no apparent distress. He is alert and oriented 3. On inspection of his left hip, there is a clean, dry, intact surgical dressing in place with no bleeding or drainage through the dressing. Motor and sensory function is intact of the left lower extremity. Femoral nerve function intact. Left lower extremity warm and well-perfused. Calf nontender. Hemovac drain removed during examination. - Labs CBC & Chem 7: 12/11/22 06:42 Labs: Abnormal Lab Results - Last 24 Hours (Table) 12/11/22 Range/Units 06:42 WBC 26.1 H (3.8-10.6) k/uL RBC 3.78 L (4.30-5.90) m/uL Hgb 12.6 L (13.0-17.5) gm/dL Hct 38.0 L (39.0-53.0) % MCV 100.5 H (80.0-100.0) fL Neutrophils # 23.3 H (1.3-7.7) k/uL Monocytes # 1.5 H (0-1.0) k/uL Assessment and Plan Assessment: Status-post left direct anterior total hip arthroplasty on 12/10/22. Postoperative day #1. Plan: - Weight bear to tolerance on operative extremity with a walker. Up with assistance. Fall precautions. - Keep operative dressing in place. - Physical therapy for gait and balance training. - Pain management as needed. - Xarelto has been started for DVT prophylaxis due to history of DVT. - 2 doses of postoperative IV antibiotics complete. - Internal medicine consult for perioperative medical management. - Case management consult for discharge planning.
[2022-12-11] MEDS: FLUoxetine HCL 20 MG CAP PO SCH (08:45)
[2022-12-11] MEDS: allopurinoL 300 MG TAB PO SCH (08:45)
[2022-12-11] MEDS: THIAMINE 100 MG TAB PO SCH (08:45)
[2022-12-11] MEDS: RIVAROXABAN 10 MG TAB PO SCH (08:45)
[2022-12-11] MEDS: diazePAM 5 MG TAB PO SCH (08:45)
[2022-12-11] MEDS: lisinopriL 20 MG TAB PO SCH (08:45)
[2022-12-11] MEDS: METOPROLOL TARTRATE 12.5 MG TAB PO SCH ×3 (08:45→19:32)
[2022-12-11] MEDS: levETIRAcetam 500 MG TAB PO SCH ×2 (08:46→19:32)
[2022-12-11] MEDS: HYDROcodone/APAP 5-325MG 1 EACH TAB PO PRN ×2 (11:09→19:32)
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
[2022-12-11] MEDS: diazePAM 2 MG TAB PO SCH ×2 (16:20→19:32)
[2022-12-11] MEDS: LACTATED RINGERS 1,000 ML IV SCH ×3 (17:21→22:21)
[2022-12-11] MEDS: ATORVASTATIN 20 MG TAB PO SCH (19:32)
[2022-12-11] MEDS: SENNOSIDES-DOCUSATE SODIUM 1 EACH TAB PO SCH (19:32)
[2022-12-12 07:44] LABS: Basophils % (A) 0 %; Eosinophils # (A) 0.1 k/uL (0-0.7); Eosinophils % (A) 0 %; HGB 12.6 gm/dL (13.0-17.5); Lymphocytes # (A) 2.5 k/uL (1.0-4.8); Lymphocytes % (A) 15 %; MCH 32.9 pg (25.0-35.0); MCHC 33.2 g/dL (31.0-37.0); Mean Platelet Volume 8.4; Monocytes # (A) 1.3 k/uL (0-1.0); Monocytes % (A) 8 %; Neutrophils # (A) 12.5 k/uL (1.3-7.7); Neutrophils % (A) 76 %; Platelet Count 195 k/uL (150-450); RBC 3.83 m/uL (4.30-5.90); RDW 13.1 % (11.5-15.5); WBC 16.5 k/uL (3.8-10.6)
[2022-12-12 08:09] VITALS: BP 150/92; PULSE 71; TEMP 98.6
[2022-12-12] MEDS: diazePAM 2 MG TAB PO SCH (08:17)
[2022-12-12] MEDS: levETIRAcetam 500 MG TAB PO SCH (08:17)
[2022-12-12] MEDS: METOPROLOL TARTRATE 12.5 MG TAB PO SCH (08:17)
[2022-12-12] MEDS: RIVAROXABAN 10 MG TAB PO SCH (08:17)
[2022-12-12] MEDS: allopurinoL 300 MG TAB PO SCH (08:17)
[2022-12-12] MEDS: FLUoxetine HCL 20 MG CAP PO SCH (08:17)
[2022-12-12] MEDS: lisinopriL 20 MG TAB PO SCH (08:17)
[2022-12-12] MEDS: THIAMINE 100 MG TAB PO SCH (08:17)
[2022-12-12] MEDS: HYDROcodone/APAP 5-325MG 1 EACH TAB PO PRN (08:21)
--- NOTE | 2022-12-12 10:15 | P.DS ---
Providers Expected date of discharge: 12/12/22 Attending physician: Ton Garrett Consults: 12/10/22 15:26 Consult Physician Routine Consulting Provider: Tim Reyes Consult Reason/Comments: medical management Do you want consulting provider notified?: Yes Primary care physician: Antolin White MD Hospital Course: This is a 62-year-old male who was last seen in our office with complaint of continued left hip pain. The patient has a known history of degenerative arthritis of the left hip and presents to discuss surgical options. After discussion and consideration the patient elects to proceed with a direct anterior left total hip arthroplasty. He is seen preoperatively by Dr. White and cleared for surgery. The patient is admitted to [facility] for direct anterior left total hip arthroplasty. The procedure is performed without complication or sequelae. Vital signs and labs are stable on postoperative day #2. The patient is examined bedside this morning with Dr. Garrett. He states the pain in the left hip is well-controlled at this time. He is ambulating with walker with minimal assistance. He has passed physical therapy to return home. Patient has no new complaints or concerns the day of discharge. On examination, the patient is sitting up in bed in no apparent distress. He is alert and oriented 3. On inspection of the left hip, there is a clean, dry, intact surgical dressing in place with no bleeding or drainage through the dressing. There is mild swelling of the thigh, thigh is soft and compressible. Motor and sensory function is intact of the left lower extremity. Femoral nerve function intact. The left lower extremity is warm and well-perfused. Calf is soft and nontender to palpation. The patient is discharged home today with home health services in good condition, pending medical clearance. Please see discharge orders. Please refer to the [facility] rec for accurate list of medications. He should follow-up in the office at [facility] in 2 weeks. Plan - Discharge Summary Discharge Rx Participant: No New Discharge Prescriptions: New Docusate [Colace] 100 mg PO BID #60 capsule HYDROcodone/APAP 5-325MG [[place] 5-325] 1 - 2 tab PO Q6HR PRN 7 Days #32 tab PRN Reason: Pain Omeprazole 40 mg PO DAILY 30 Days #30 cap Rivaroxaban [Xarelto] 10 mg PO DAILY 35 Days #35 tab No Action amLODIPine BESYLATE [Norvasc] 10 mg PO DAILY allopurinoL [Zyloprim] 300 mg PO DAILY Albuterol Inhaler [Ventolin Hfa Inhaler] 2 puff INHALATION RT-QID PRN PRN Reason: Shortness Of Breath lisinopriL [Prinivil] 20 mg PO DAILY levETIRAcetam [Keppra] 500 mg PO Q12HR Atorvastatin [Lipitor] 20 mg PO HS Zolpidem [Ambien] 5 mg PO HS PRN PRN Reason: Insomnia Acetaminophen [Tylenol Arthritis] 1,300 mg PO Q8H PRN PRN Reason: Pain Or Fever > 100.5 FLUoxetine HCL [PROzac] 20 mg PO DAILY Celecoxib [CeleBREX] 200 mg PO DAILY Discharge Medication List amLODIPine BESYLATE [Norvasc] 10 mg PO DAILY 03/07/15 [History] allopurinoL [Zyloprim] 300 mg PO DAILY 04/10/18 [History] Albuterol Inhaler [Ventolin Hfa Inhaler] 2 puff INHALATION RT-QID PRN 05/04/20 [History] lisinopriL [Prinivil] 20 mg PO DAILY 02/26/21 [History] Atorvastatin [Lipitor] 20 mg PO HS 04/19/21 [History] levETIRAcetam [Keppra] 500 mg PO Q12HR 04/19/21 [History] Zolpidem [Ambien] 5 mg PO HS PRN 04/24/21 [History] Acetaminophen [Tylenol Arthritis] 1,300 mg PO Q8H PRN 08/24/22 [History] Celecoxib [CeleBREX] 200 mg PO DAILY 08/24/22 [History] FLUoxetine HCL [PROzac] 20 mg PO DAILY 08/24/22 [History] Docusate [Colace] 100 mg PO BID #60 capsule 12/11/22 [Rx] HYDROcodone/APAP 5-325MG [[place] 5-325] 1 - 2 tab PO Q6HR PRN 7 Days #32 tab 12/11/22 [Rx] Omeprazole 40 mg PO DAILY 30 Days #30 cap 12/11/22 [Rx] Rivaroxaban [Xarelto] 10 mg PO DAILY 35 Days #35 tab 12/11/22 [Rx] Follow up Appointment(s)/Referral(s): [facility], [NON-STAFF] - 1-2 Days ([facility] will call you to schedule your in home physical therapy visits. ) Ton Garrett MD [Medical Doctor] - 2 Weeks Activity/Diet/Wound Care/Special Instructions: Weight bear to tolerance on operative extremity with a walker. Keep operative dressing in place until follow-up appointment in the office. Call the office if dressing becomes saturated or falls off. May shower over dressing. Take pain medication as prescribed. Take Xarelto as prescribed for blood clot prevention. Follow-up in the office in two weeks at [facility]. Call the office with any questions or concerns,
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
== END 2022-12-12 11:50 | disposition home health service (06) ==
LOC: OR 11:13 → EEVIPCON 13:00 → 4SSUR 16:29 → OR 12-12 11:50
PROVIDERS: ATTEND Orthopaedic Surgery
DX: M16.12 Unilateral primary osteoarthritis, left hip (principal); G89.18 Other acute postprocedural pain; Z86.718 Personal history of other venous thrombosis and embolism; Z87.820 Personal history of traumatic brain injury; Z79.899 Other long term (current) drug therapy; Z79.01 Long term (current) use of anticoagulants
CPT/HCPCS: 97116; 97161; 97165; 64447; 86900; 86901; 85025 ×2; 86850; 73501; 27130; C1776; J2250; J0330; J1100 ×2; J2710; J0690 ×2; J2405; J3010; J3490; J1170 ×2; J2795; J1885; J2704; J2001; J2371

== ENCOUNTER 2023-03-31 17:52 | Observation (INO) | payer MEDICARE, OTHER ==
[2023-03-31] MEDS ORDERED: PANTOPRAZOLE 40 MG/10 ML VIAL IVP STA (18:07)
[2023-03-31] MEDS ORDERED: SODIUM CHLORIDE 0.9% 500 ML 500 ML IV STA (18:07)
[2023-03-31] MEDS ORDERED: ONDANSETRON 4 MG/2 ML VIAL IVP STA (18:07)
[2023-03-31] MEDS ORDERED: SODIUM CHLORIDE 0.9% 1,000 ML IV STA (18:07)
[2023-03-31] MEDS ORDERED: MAG HYDROX/AL HYDROX/SIMETH 30 ML, HYOSCYAMINE ELIXIR 10 ML, LIDOCAINE 2% GLYDO JELLY 1... PO STA ×3 (18:09)
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
[2023-03-31 18:32] LABS: Basophils # (A) 0.1 k/uL (0-0.2); Basophils % (A) 0 %; Eosinophils # (A) 0.1 k/uL (0-0.7); Eosinophils % (A) 1 %; HCT 48.3 % (39.0-53.0); HGB 16.8 gm/dL (13.0-17.5); Lymphocytes # (A) 2.9 k/uL (1.0-4.8); Lymphocytes % (A) 16 %; MCH 32.2 pg (25.0-35.0); MCHC 34.9 g/dL (31.0-37.0); MCV 92.5 fL (80.0-100.0); Monocytes # (A) 1.2 k/uL (0-1.0); Monocytes % (A) 6 %; Neutrophils # (A) 13.6 k/uL (1.3-7.7); Neutrophils % (A) 76 %; Platelet Count 340 k/uL (150-450); RBC 5.23 m/uL (4.30-5.90); RDW 13.5 % (11.5-15.5)
[2023-03-31 19:20] LABS: Partial Thromboplastin Time 26.4 sec (22.0-30.0); Prothrombin Time 10.8 sec (10.0-12.5)
[2023-03-31 20:24] LABS: ALT 25 U/L (4-49); AST 26 U/L (17-59); African American GFR (CKD) >90 (>60 ml/min/1.73 sqM); Alkaline Phosphatase 73 U/L (38-126); Anion Gap 10 mmol/L; Blood Urea Nitrogen 17 mg/dL (9-20); Calcium 9.2 mg/dL (8.4-10.2); Carbon Dioxide 23 mmol/L (22-30); Chloride 96 mmol/L (98-107); Glucose 109 mg/dL (74-99); Lipase 99 U/L (23-300); Non-African American GFR(CKD) >90 (>60 ml/min/1.73 sqM); Potassium 4.1 mmol/L (3.5-5.1); Sodium 129 mmol/L (137-145); Total Bilirubin 0.6 mg/dL (0.2-1.3); Total Protein 6.8 g/dL (6.3-8.2)
[2023-03-31 20:43] LABS: Mucus,Urine Many /hpf; RBC,Urine <1 /hpf (0-5); WBC,Urine 3 /hpf (0-5)
[2023-03-31 21:18] LABS: Appearance,Urine Slightly Cloudy (Clear); Color,Urine Dark Yellow; Protein,Urine Trace (Negative); Specific Gravity,Urine 1.026 (1.001-1.035)
[2023-03-31 21:19] LABS: Bilirubin,Urine Negative (Negative); Blood,Urine Small (Negative); Glucose,Urine (UA) Negative (Negative); Ketones,Urine Trace (Negative); Leukocyte Esterase,Urine Negative (Negative); Nitrite,Urine Negative (Negative); Urobilinogen,Urine <2.0 mg/dL (<2.0)
--- NOTE | 2023-03-31 21:54 | CT ---
EXAMINATION TYPE: CT abdomen pelvis w con CT DLP: 1923.6 mGycm, Automated exposure control for dose reduction was used. DATE OF EXAM: 03/31/2023 9:47 PM COMPARISON: CT abdomen 06/27/2021. CLINICAL INDICATION:Male, 63 years old with history of abdominal pain, acute, nonlocalized; Abdominal pain. N/V/D. TECHNIQUE: Axial CT of the abdomen and pelvis. Sagittal and coronal reformats were created on a [employer] workstation. Contrast used:100 ml mL of Isovue 300 with IV Contrast, (none if empty) Oral contrast used: without Oral Contrast FINDINGS: LOWER CHEST: Unremarkable ABDOMEN LIVER: Unremarkable GALLBLADDER AND BILE DUCTS: Unremarkable. PANCREAS: There are inflammatory changes centered around the pancreatic head and neck. The pancreatic parenchyma enhances homogenously. SPLEEN: Unremarkable. ADRENAL GLANDS: Unremarkable. KIDNEYS AND URETERS: No evidence of hydronephrosis or renal calculus. The ureters are unremarkable. Left renal cyst. PELVIS BLADDER: Unremarkable REPRODUCTIVE: Unremarkable. ABDOMEN & PELVIS STOMACH AND BOWEL: The stomach is unremarkable. Mild wall thickening of the duodenum, likely reactive . No evidence of bowel obstruction. PERITONEUM/RETROPERITONEUM: No evidence of pneumoperitoneum or free fluid. VASCULATURE: Mild atherosclerotic calcifications are present throughout the abdominal aorta and its b ranches. No evidence of aortic aneurysm. MUSCULOSKELETAL: Left hip prosthesis is identified. Lower lumbar fusion hardware is identified. Moder ate multilevel degenerative changes of the thoracic lumbar spine. LYMPH NODES: A few prominent gastrohepatic lymph nodes, likely reactive. SOFT TISSUE/ABDOMINAL WALL: Unremarkable IMPRESSION: Findings most consistent with acute interstitial edematous pancreatitis.
[2023-03-31] MEDS ORDERED: PIPERACILLIN-TAZOBACTAM 3.375 GM in SODIUM CHLORIDE 0.9% 100 ML IVPB STA (22:11)
[2023-03-31] MEDS ORDERED: ACETAMINOPHEN TAB 500 MG TAB PO STA (22:12)
[2023-03-31] MEDS ORDERED: ONDANSETRON 4 MG/2 ML VIAL IVP PRN (22:33)
[2023-03-31] MEDS ORDERED: ACETAMINOPHEN TAB 325 MG TAB PO PRN ×2 (22:33→23:20)
[2023-03-31] MEDS ORDERED: DICYCLOMINE 20 MG TAB PO PRN (22:38)
[2023-03-31] MEDS ORDERED: METOCLOPRAMIDE 5 MG/ML 2 ML VIAL IVP PRN (22:38)
[2023-03-31] MEDS: SODIUM CHLORIDE 0.9% 1,000 ML IV SCH (22:59)
[2023-03-31] MEDS ORDERED: ALBUTEROL NEBULIZED 2.5 MG/3 ML INHALATION PRN (23:20)
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
[2023-04-01 07:33] VITALS: RESP 19
[2023-04-01] MEDS: SODIUM CHLORIDE 0.9% 1,000 ML IV SCH (08:16)
[2023-04-01 08:26] LABS: ALT 25 U/L (4-49); AST 29 U/L (17-59); African American GFR (CKD) >90 (>60 ml/min/1.73 sqM); Albumin 3.6 g/dL (3.5-5.0); Albumin/Globulin Ratio 1.3; Alkaline Phosphatase 58 U/L (38-126); Anion Gap 13 mmol/L; Blood Urea Nitrogen 16 mg/dL (9-20); Calcium 8.8 mg/dL (8.4-10.2); Carbon Dioxide 22 mmol/L (22-30); Chloride 96 mmol/L (98-107); Globulin 2.8 g/dL; Glucose 179 mg/dL (74-99); HGB 14.5 gm/dL (13.0-17.5); Lipase 156 U/L (23-300); MCH 32.1 pg (25.0-35.0); MCHC 33.8 g/dL (31.0-37.0); MCV 94.9 fL (80.0-100.0); Mean Platelet Volume 7.7; Non-African American GFR(CKD) >90 (>60 ml/min/1.73 sqM); Platelet Count 274 k/uL (150-450); RBC 4.53 m/uL (4.30-5.90); RDW 13.5 % (11.5-15.5); Sodium 131 mmol/L (137-145); Total Bilirubin 0.7 mg/dL (0.2-1.3); Total Protein 6.4 g/dL (6.3-8.2); WBC 7.8 k/uL (3.8-10.6)
[2023-04-01] MEDS ORDERED: allopurinoL 300 MG TAB PO SCH (09:00)
[2023-04-01] MEDS ORDERED: RIVAROXABAN 10 MG TAB PO SCH (09:00)
[2023-04-01] MEDS ORDERED: amLODIPine 10 MG TAB PO SCH (09:00)
[2023-04-01] MEDS ORDERED: ENOXAPARIN 40 MG/0.4 ML SYRINGE SQ SCH (09:00)
[2023-04-01] MEDS ORDERED: levETIRAcetam 500 MG TAB PO SCH (09:00)
[2023-04-01] MEDS ORDERED: MELOXICAM 7.5 MG TAB PO SCH (09:00)
[2023-04-01] MEDS ORDERED: FLUoxetine HCL 20 MG CAP PO SCH (09:00)
[2023-04-01] MEDS ORDERED: PANTOPRAZOLE 40 MG/10 ML VIAL IV SCH (09:00)
[2023-04-01] MEDS ORDERED: lisinopriL 20 MG TAB PO SCH (09:00)
[2023-04-01 09:14] LABS: Potassium 4.2 mmol/L (3.5-5.1)
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
[2023-04-01 14:09] VITALS: BP 131/66; PULSE 73; TEMP 98.3
--- NOTE | 2023-04-01 14:21 | P.DS ---
Providers Date of admission: 03/31/23 22:39 Expected date of discharge: 04/01/23 Attending physician: Ashkan Eubanks MD Consults: 03/31/23 22:33 Consult Physician Routine Consulting Provider: Taylor Garcia Consult Reason/Comments: abdominal pain, vomiting, diarrhea, pancreatitis Do you want consulting provider notified?: Yes Primary care physician: Antolin White MD Hospital Course: Discharge Diagnosis: Polysubstance abuse Lacitc Acid Gastritis Diarrhea Hypochloremic Hyponatremia Acute alcoholic pancreatitis Hospital Course: Patient is a 63-year-old male with known polysubstance abuse, COPD, A. fib on Xarelto, seizure disorder, hypertension, and dyslipidemia who presented to the ER with complaints of abdominal pain and diarrhea. In the ER he underwent an extensive evaluation. He was found have a white blood cell count of 18 and a sodium of 129. His lactic acid was mildly elevated at 2.2. CT of the abdomen and pelvis showed acute interstitial edematous pancreatitis. Lipase was normal. He was admitted for possible pancreatitis and ongoing diarrhea that was felt to be secondary to his illicit substance use of possible gastroenteritis. By the morning after admission his diarrhea had resolved and is asking to be discharged. He was seen by GI who had concerns for possible NSAID-induced justine ritis and pancreatitis. The patient tolerated a regular diet. His sodium improved to 131. He was determined stable for discharge with outpatient follow- up in the next 2-3 weeks. Follow-up: Dr. Garcia in 2 weeks. He should abstain from illicit substances. Protonix 40 mg twice daily. Patient seen and examined at bedside. Doing better. He states he has had a greater than 50% improvement in his diarrhea and abdominal pain. He is asking to be discharged home. Vital signs reviewed and stable. General: nontoxic, no distress, appears at stated age Cardiovascular: S1S2 reg, no murmur, positive posterior tibial pulse bilateral, Lungs: CTA bilateral, no rhonchi, no rales , no accessory muscle use Abdominal: soft, nontender to palpation, no guarding, no appreciable organomegaly A total of 35 minutes of time were spent preparing this complex discharge summary. Patient was discharged on 04/01/23. This dictation was prepared using [employer] voice recognition software. Though every attempt is made to correct errors during dictation some may still exist. Patient Condition at Discharge: Fair Plan - Discharge Summary New Discharge Prescriptions: New Pantoprazole [Protonix] 40 mg PO BID #60 tab Continue amLODIPine BESYLATE [Norvasc] 10 mg PO DAILY allopurinoL [Zyloprim] 300 mg PO DAILY Albuterol Inhaler [Ventolin Hfa Inhaler] 2 puff INHALATION RT-QID PRN PRN Reason: Shortness Of Breath lisinopriL [Prinivil] 20 mg PO DAILY levETIRAcetam [Keppra] 500 mg PO Q12HR Atorvastatin [Lipitor] 20 mg PO HS Acetaminophen [Tylenol Arthritis] 1,300 mg PO Q8H PRN PRN Reason: Pain Or Fever > 100.5 FLUoxetine HCL [PROzac] 20 mg PO DAILY Rivaroxaban [Xarelto] 10 mg PO DAILY 35 Days #35 tab Discontinued Zolpidem [Ambien] 5 mg PO HS Ibuprofen [Motrin] 800 mg PO TID PRN PRN Reason: Headache Celecoxib [CeleBREX] 200 mg PO DAILY Omeprazole 40 mg PO DAILY 30 Days #30 cap Discharge Medication List amLODIPine BESYLATE [Norvasc] 10 mg PO DAILY 03/07/15 [History] allopurinoL [Zyloprim] 300 mg PO DAILY 04/10/18 [History] Albuterol Inhaler [Ventolin Hfa Inhaler] 2 puff INHALATION RT-QID PRN 05/04/20 [History] lisinopriL [Prinivil] 20 mg PO DAILY 02/26/21 [History] Atorvastatin [Lipitor] 20 mg PO HS 04/19/21 [History] levETIRAcetam [Keppra] 500 mg PO Q12HR 04/19/21 [History] Acetaminophen [Tylenol Arthritis] 1,300 mg PO Q8H PRN 08/24/22 [History] FLUoxetine HCL [PROzac] 20 mg PO DAILY 08/24/22 [History] Rivaroxaban [Xarelto] 10 mg PO DAILY 35 Days #35 tab 12/11/22 [Rx] Pantoprazole [Protonix] 40 mg PO BID #60 tab 04/01/23 [Rx] Follow up Appointment(s)/Referral(s): Antolin White MD [Primary Care Provider] - 1-2 days Taylor Garcia MD [STAFF PHYSICIAN] - 2 Weeks Activity/Diet/Wound Care/Special Instructions: Activity: as tolerated Diet: low acid Special Instructions: Abstain From illicit substances. Monitor stools for any signs of them being dark and tarry or bright red blood. AVOID NSAIDS- aspirin, motrin, ibuprofen, aleve, naproxen, advil Discharge Disposition: HOME SELF-CARE
[2023-04-01] MEDS ORDERED: ZOLPIDEM 5 MG TAB PO SCH (21:00)
[2023-04-01] MEDS ORDERED: ATORVASTATIN 20 MG TAB PO SCH (21:00)
== END 2023-04-01 16:19 | disposition home or self-care (01) ==
LOC: EC 17:52 → 6NMEDSUR 22:39 → EEVIPCON 22:39 → 6NMEDSUR 23:58 → 4SSUR 04-01 00:09
PROVIDERS: ADMIT Internal Medicine; ATTEND Internal Medicine
DX: F19.10 Other psychoactive substance abuse, uncomplicated (principal); K29.70 Gastritis, unspecified, without bleeding; K85.20 Alcohol induced acute pancreatitis without necrosis or infection; E87.1 Hypo-osmolality and hyponatremia; E87.8 Other disorders of electrolyte and fluid balance, not elsewhere classified; F12.90 Cannabis use, unspecified, uncomplicated; K21.9 Gastro-esophageal reflux disease without esophagitis; E78.5 Hyperlipidemia, unspecified; I10 Essential (primary) hypertension; R41.3 Other amnesia; M19.90 Unspecified osteoarthritis, unspecified site; G89.29 Other chronic pain; M54.9 Dorsalgia, unspecified; G40.909 Epilepsy, unspecified, not intractable, without status epilepticus; G43.909 Migraine, unspecified, not intractable, without status migrainosus; M10.9 Gout, unspecified; F32.A Depression, unspecified; F41.9 Anxiety disorder, unspecified; K75.9 Inflammatory liver disease, unspecified; K37 Unspecified appendicitis; F10.20 Alcohol dependence, uncomplicated; I48.91 Unspecified atrial fibrillation; J44.9 Chronic obstructive pulmonary disease, unspecified; Z87.828 Personal history of other (healed) physical injury and trauma; Z87.442 Personal history of urinary calculi; Z91.81 History of falling; Z86.73 Personal history of transient ischemic attack (TIA), and cerebral infarction without residual deficits; Z86.718 Personal history of other venous thrombosis and embolism; Z90.49 Acquired absence of other specified parts of digestive tract; Z79.899 Other long term (current) drug therapy; Z79.1 Long term (current) use of non-steroidal anti-inflammatories (NSAID); Z79.01 Long term (current) use of anticoagulants; Z88.6 Allergy status to analgesic agent; Z96.652 Presence of left artificial knee joint; Z83.3 Family history of diabetes mellitus
CPT/HCPCS: 96376; 96361 ×2; 96366; 96365; 96375; 99285; 51798; 36415; 86900; 86901; 80053 ×2; 83605; 83690 ×2; 85025; 85027; 85610; 85730; 86850; 81001; 83993; 74177; G0378 ×2; J2543; C9113 ×2; Q9967

== ENCOUNTER → 2023-04-14 | Outpatient (CLI) | payer MEDICARE, OTHER ==
[2023-04-14 11:24] VITALS: BP 122/80; PULSE 74; RESP 16; TEMP 98
--- NOTE | 2023-04-14 14:24 | P.PAINPG ---
PQRS Measure Charge Sheet Comment: A 63 yr old male w sister at side with a history of severe and chronic neck pain secondary to occipital neuralgia and cervicogenic GILMORE presents today for evaluation. Pain level is provoked at 10/10 in intensity, predominantly axial, sharp in character w radiation of pain up the scalp. Pain is provoked by bright lights. Pain is alleviated with injections, medications (Advil, Ibu), manual massage and rest. Interventional pain procedures completed include BL KD, Cervical TPIs Patient is currently on Advil, Ibu Patient denies any side effects of the medication(s), denies excessive drowsiness or sleepiness, denies suicidal ideation and reports that the current pain medication is helping to control the pain and improve activities of daily living. Patient denies any motor or sensory deficits. Patient denies any fever or night sweats, denies any change in the bowel movements or urination. Physical Examination: -Constitutional: Cooperative. Not in acute distress . - Neurologic: Cranial nerve II to XII intact. No focal neurological deficits. - Psychatric: Alert & oriented x 3. Matching mood & appropriate affect. Judgment and insight intact. - Musculoskeletal: Cervical spine: BL KD TTP Muscle bulk/ tone/ strength in the bilateral upper extremities normal Vertebral body tenderness to palpation over Spurling test positive Distraction test positive Facet loading test positive TTP Thoracic spine Muscle bulk / tone/ strength in the bilateral paraspinal muscles normal Vertebral body tender to palpation over Facet loading test positive TTP Lumbar spine: Motor bulk/ tone/ strength lower extremities , thigh and legs : 5/5 Deep tendon reflexes : Normal Knee Jerk. Normal Ankle Jerk . Vertebral body tenderness to palpation over Lumbar Facet Loading Test positive Straight Leg Raise: positive at 30 degrees right side/ left side Gaenslen's Test positive Sacral spine : Severe tenderness over the Sacroiliac joint: right side / left side Range of motion: Flexion of the lumbar spine <60 degrees Range of motion: Extension of the lumbar spine <20 degrees Gaenslen's Test positive R / L Ebony test: positive right side / left side Thigh Thrust Test positive R / L Sacral Thrust Test positive R/ L Assessment and plan: Chronic neck pain secondary to occipital neuralgia and cervicogenic GILMORE Recommendation of BL KD injections. May need a series of injections for optimal pain relief. Risks, benefits of procedure discussed and pt verbalized understanding. Protocol for discontinuation. continuation of medications surrounding procedure discussed. All questions answered. I have spent less than 30 minutes on patient care today. Dr Chi was available by phone for the evaluation of this patient. The time was used to review the medical records including relevant urine studies and Prescription history (MAPs), review of the available imaging, evaluation and examination of the patient, coordination of care with the medical staff and if applicable referring physicians, as well as creation of the medical record PQRS Narrative: Smoking Status Former smoker Hx Alcohol Use (MH) Yes: 15 PACK PER DAY. Home Medications: Ambulatory Orders amLODIPine BESYLATE [Norvasc] 10 mg PO DAILY 03/07/15 allopurinoL [Zyloprim] 300 mg PO DAILY 04/10/18 Albuterol Inhaler [Ventolin Hfa Inhaler] 2 puff INHALATION RT-QID PRN 05/04/20 lisinopriL [Prinivil] 20 mg PO DAILY 02/26/21 Atorvastatin [Lipitor] 20 mg PO HS 04/19/21 levETIRAcetam [Keppra] 500 mg PO Q12HR 04/19/21 Acetaminophen [Tylenol Arthritis] 1,300 mg PO Q8H PRN 08/24/22 FLUoxetine HCL [PROzac] 20 mg PO DAILY 08/24/22 Rivaroxaban [Xarelto] 10 mg PO DAILY 35 Days #35 tab 12/11/22 Pantoprazole [Protonix] 40 mg PO BID #60 tab 04/01/23 Controlled Substance Measures - Controlled Substance Measures Is patient prescribed a controlled substance at discharge?: No
== END ==
LOC: PNWHC3 10:08
PROVIDERS: ATTEND Specialist
DX: M54.81 Occipital neuralgia (principal); G44.86 Cervicogenic headache; G89.29 Other chronic pain; Z88.6 Allergy status to analgesic agent; Z87.891 Personal history of nicotine dependence; F12.90 Cannabis use, unspecified, uncomplicated
CPT/HCPCS: 99211

== ENCOUNTER 2023-04-28 07:52 | Day surgery (SDC) | payer MEDICARE, OTHER ==
[~2023-04-28 07:52] MED LIST changes: -ACETAMINOPHEN TAB 500 MG TAB PO PRN; -DEXAMETHASONE SOD PHOSPHATE 10 MG/ML 1 ML VIAL IV PRN; -DOCUSATE 100 MG CAP PO PRN; -FAMOTIDINE 20 MG/2 ML VIAL IVP PRN; -KETOROLAC 15 MG/ML 1 ML VIAL IVP PRN; +LACTATED RINGERS 1,000 ML IV SCH; -ONDANSETRON 4 MG/2 ML VIAL IVP PRN; -TRANEXAMIC 1,000 MG/100ML-NACL 1,000 MG in SALINE 1 100ML.BAG IV PRN; -TRANEXAMIC 1,000 MG/100ML-NACL 1,000 MG in SALINE 1 100ML.BAG IVPB PRN; -oxyCODONE ER 10 MG TAB.ER.12H PO PRN
[2023-04-28 08:41] VITALS: RESP 16; TEMP 97.8
[2023-04-28] MEDS ORDERED: methylPREDNISolone ACETATE 80 MG/ML 1 ML VIAL ONE (08:45)
[2023-04-28] MEDS ORDERED: ROPIVACAINE 5MG/ML 20ML VIAL ONE (08:45)
--- NOTE | 2023-04-28 08:49 | P.PCN ---
Date of Procedure: 04/28/23 Procedure(s) Performed: Preoperative diagnoses= 1- Greater occipital neuralgia. 2-cervicogenic headache. 3-cervical spondylosis and cervical facet arthropathy Postoperative diagnoses= same as preoperative diagnosis. Procedure= Bilateral Greater occipital nerve block Anesthesia= none . Estimated blood loss=minimal. Procedure indication= the patient had a history of severe chronic neck pain ,and headache, diagnosed with occipital neuralgia exam was positive for severe tenderness over the occipital nerve bilaterally, she will be a good candidate occipital nerve block, patient failed conservative management Procedure description= the patient was seen and identified in the preoperative holding area, risks and benefits and alternative of the procedure and possible complications discussed with the patient, and he agreed with the preceding, patient signed the consent, and vital signs were monitored and were stable throughout the procedure, patient was placed in the sitting position or table and the neck area was prepped and draped with a sterile fashion, vital signs were closely monitored during the procedure, 25-gauge needle advanced 1 inch lateral to the occipital protuberance on the right side, at the location of the right occipital nerve , then after negative aspiration for heme and CSF and there was no paresthesia during the injection, 6 ml of Robivacaine 0.5% and 40 mg of Depo-Medrol injected after negative aspiration, the needle removed, and the entire same procedure was repeated for the left Greater occipital nerve. Patient tolerated the procedure well without any complication, The patient returned to supine position after the back was cleaned and a Band-Aid applied, the patient transported to recovery room in stable condition and he was monitored for 30 minutes before he was discharged home and then patient was reexamined before going home and patient was discharged in stable condition and patient will follow up with the pain clinic in a few weeks.
[2023-04-28 09:07] VITALS: BP 122/77; PULSE 82
== END 2023-04-28 09:15 | disposition home or self-care (01) ==
LOC: ORPAIN 07:52
PROVIDERS: ATTEND Specialist
DX: M47.812 Spondylosis without myelopathy or radiculopathy, cervical region (principal); G44.309 Post-traumatic headache, unspecified, not intractable; M54.81 Occipital neuralgia
CPT/HCPCS: 64405; J1040; J2795

== ENCOUNTER → 2023-05-21 | Outpatient (CLI) | payer MEDICARE, OTHER ==
[2023-05-21 11:01] VITALS: BP 129/79; PULSE 73; RESP 16; TEMP 98.5
--- NOTE | 2023-05-21 14:32 | P.PAINPG ---
PQRS Measure Charge Sheet Comment: A 63 yr old male w sister at side with a history of severe and chronic neck pain secondary to occipital neuralgia and cervicogenic GILMORE presents today for evaluation s/p BL KD #2. Pt states he experienced 85 % pain relief x 3 wks s/p procedure. Pain level is provoked at 10/10 in intensity, predominantly axial, sharp in character w radiation of pain up the scalp. Pain is provoked by bright lights. Pain is alleviated with injections, medications, manual massage and rest. Cervical disability score of 26. Interventional pain procedures completed include BL KD x2, Cervical TPIs Patient is currently on Advil, Ibu, THC products Patient denies any side effects of the medication(s), denies excessive drow siness or sleepiness, denies suicidal ideation and reports that the current pain medication is helping to control the pain and improve activities of daily living. Patient denies any motor or sensory deficits. Patient denies any fever or night sweats, denies any change in the bowel movements or urination. Physical Examination: -Constitutional: Cooperative. Not in acute distress . - Neurologic: Cranial nerve II to XII intact. No focal neurological deficits. - Psychatric: Alert & oriented x 3. Matching mood & appropriate affect. Judgment and insight intact. - Musculoskeletal: Cervical spine: Muscle bulk/ tone/ strength in the bilateral upper extremities normal Vertebral body tenderness to palpation over Spurling test positive Taut bands w twitch response over BL C2- T1 Distraction test positive Facet loading test positive TTP Thoracic spine Muscle bulk / tone/ strength in the bilateral paraspinal muscles normal Vertebral body tender to palpation over Facet loading test positive TTP Lumbar spine: Motor bulk/ tone/ strength lower extremities , thigh and legs : 5/5 Deep tendon reflexes : Normal Knee Jerk. Normal Ankle Jerk . Vertebral body tenderness to palpation over Lumbar Facet Loading Test positive Straight Leg Raise: positive at 30 degrees right side/ left side Gaenslen's Test positive Sacral spine : Severe tenderness over the Sacroiliac joint: right side / left side Range of motion: Flexion of the lumbar spine <60 degrees Range of motion: Extension of the lumbar spine <20 degrees Gaenslen's Test positive R / L Ebony test: positive right side / left side Thigh Thrust Test positive R / L Sacral Thrust Test positive R/ L Assessment and plan: Chronic neck pain secondary to occipital neuralgia and cervicogenic GILMORE Recommendation of BL TPIs C2-T1 #2. May need a series of injections for optimal pain relief. Risks, benefits of procedure discussed and pt verbalized understanding. Protocol for discontinuation. continuation of medications surrounding procedure discussed. All questions answered. I have spent less than 30 minutes on patient care today. Dr Chi was available by phone for the evaluation of this patient. The time was used to rev iew the medical records including relevant urine studies and Prescription history (MAPs), review of the available imaging, evaluation and examination of the patient, coordination of care with the medical staff and if applicable referring physicians, as well as creation of the medical record PQRS Narrative: Smoking Status Former smoker Hx Alcohol Use (MH) Yes: 15 PACK PER DAY. Home Medications: Ambulatory Orders amLODIPine BESYLATE [Norvasc] 10 mg PO DAILY 03/07/15 allopurinoL [Zyloprim] 300 mg PO DAILY 04/10/18 Albuterol Inhaler [Ventolin Hfa Inhaler] 2 puff INHALATION RT-QID PRN 05/04/20 lisinopriL [Prinivil] 20 mg PO DAILY 02/26/21 Atorvastatin [Lipitor] 20 mg PO HS 04/19/21 levETIRAcetam [Keppra] 500 mg PO Q12HR 04/19/21 Acetaminophen [Tylenol Arthritis] 1,300 mg PO Q8H PRN 08/24/22 FLUoxetine HCL [PROzac] 20 mg PO DAILY 08/24/22 Rivaroxaban [Xarelto] 10 mg PO DAILY 35 Days #35 tab 12/11/22 Pantoprazole [Protonix] 40 mg PO BID #60 tab 04/01/23 Controlled Substance Measures - Controlled Substance Measures Is patient prescribed a controlled substance at discharge?: No
== END ==
LOC: PNWHC3 09:37
PROVIDERS: ATTEND Specialist
DX: M54.81 Occipital neuralgia (principal); G44.86 Cervicogenic headache; G89.29 Other chronic pain; F12.90 Cannabis use, unspecified, uncomplicated; Z87.891 Personal history of nicotine dependence; Z88.6 Allergy status to analgesic agent
CPT/HCPCS: 99211

== ENCOUNTER 2023-06-04 08:48 | Day surgery (SDC) | payer MEDICARE, OTHER ==
[2023-06-04 09:33] VITALS: RESP 16; TEMP 98.4
[2023-06-04] MEDS ORDERED: ROPIVACAINE 5MG/ML 20ML VIAL ONE (10:35)
[2023-06-04] MEDS ORDERED: methylPREDNISolone ACETATE 40 MG/ML 1 ML VIAL ONE (10:35)
--- NOTE | 2023-06-04 10:44 | P.PCN ---
Date of Procedure: 06/04/23 Procedure(s) Performed: Procedure= trigger point injections cervical paraspinal muscles bilaterally , 3 on the right side from C2 to C7 , and 4 on the left side from C2 to C7 Preoperative diagnosis= 1-myofascial pain syndrome Cervical paraspinal muscles Postoperative diagnosis=Same as preop Diagnosis . Complication = none Condition= stable Anesthesia=none . Indication for the procedure= patient complaining of low back pain , examination was positive for multiple trigger point in the cervical paraspinal muscles bilaterally and patient diagnosed with myofascial pain syndrome and is here to have trigger point injections Description of the procedure= procedure risk and benefits discussed with the patient, including but not limited, risk of infection and bleeding, and ALLERGIC reaction to the medication and not complete pain relief and patient agreed with the preceding patient taken to the operating room, placed in sitting position or standard monitors applied to the patient then after induction of anesthesia back prepped with chlorhexidine 3 times , then under sterile technique each of the trigger point that was marked in the preop holding area 3 on the right side cervical paraspinal muscles and 4 on the left side cervical paraspinal muscles each one of them injected with the 2 mL of the mixture of ropivacaine 0.5% 14 ML mixed with 40 mg of Depo-Medrol and 2 mL of the mixture injected at each trigger point after negative aspiration, using 25-gauge needle, injection done after negative aspiration under was no paresthesia during the injection patient tolerated the procedure well without any complications and he will follow up in the pain clinic in a few weeks
[2023-06-04 11:07] VITALS: BP 122/76; PULSE 74
== END 2023-06-04 11:10 | disposition home or self-care (01) ==
LOC: ORPAIN 08:48
PROVIDERS: ATTEND Specialist
DX: M79.18 Myalgia, other site (principal); Z88.6 Allergy status to analgesic agent
CPT/HCPCS: 20553; J1030; J2795

== ENCOUNTER → 2023-06-25 | Outpatient (CLI) | payer MEDICARE ==
[2023-06-25 10:35] VITALS: BP 138/73; PULSE 76; RESP 15; TEMP 98.6
--- NOTE | 2023-06-25 12:51 | P.PAINPG ---
PQRS Measure Charge Sheet Comment: A 63 yr old male w sister at side with a history of severe and chronic neck pain secondary to occipital neuralgia and cervicogenic GILMORE presents today for evaluation s/p BL TPIs C2-T1 #2. Pt states he experienced 99 % pain relief x 3 wks s/p procedure. Pain level is provoked at 7 /10 in intensity, intermittent, predominantly axial, sharp in character w radiation of pain behind the ears. Pain is provoked by rotation and hyperextension. Pain is alleviated with injections, medications, manual massage and rest. Cervical disability score of 23. Interventional pain procedures completed include BL KD x2, Cervical TPIs x2 Patient is currently on Advil, Ibu, THC products Patient denies any side effects of the medication(s), denies excessive drowsiness or sleepiness, denies suicidal ideation and reports that the current pain medication is helping to control the pain and improve activities of daily living. Patient denies any motor or sensory deficits. Patient denies any fever or night sweats, denies any change in the bowel movements or urination. Physical Examination: -Constitutional: Cooperative. Not in acute distress . - Neurologic: Cranial nerve II to XII intact. No focal neurological deficits. - Psychatric: Alert & oriented x 3. Matching mood & appropriate affect. Judgment and insight intact. - Musculoskeletal: Cervical spine: Muscle bulk/ tone/ strength in the bilateral upper extremities normal Vertebral body tenderness to palpation over Spurling test positive Taut bands w twitch response Distraction test positive Facet loading test positive TTP BL C2-C3, C3-C4 Thoracic spine Muscle bulk / tone/ strength in the bilateral paraspinal muscles normal Vertebral body tender to palpation over Facet loading test positive TTP Lumbar spine: Motor bulk/ tone/ strength lower extremities , thigh and legs : 5/5 Deep tendon reflexes : Normal Knee Jerk. Normal Ankle Jerk . Vertebral body tenderness to palpation over Lumbar Facet Loading Test positive Straight Leg Raise: positive at 30 degrees right side/ left side Gaenslen's Test positive Sacral spine : Severe tenderness over the Sacroiliac joint: right side / left side Range of motion: Flexion of the lumbar spine <60 degrees Range of motion: Extension of the lumbar spine <20 degrees Gaenslen's Test positive R / L Ebony test: positive right side / left side Thigh Thrust Test positive R / L Sacral Thrust Test positive R/ L Assessment and plan: Chronic neck pain secondary to occipital neuralgia and cervicogenic GILMORE Recommendation of BL MBB C2-C3, C3-C4 #1. May need a series of injections, u u ntil RFA, for optimal pain relief. Risks, benefits of procedure discussed and pt verbalized understanding. Minimal anesthesia include Fentanyl and Versed if clinically indicated. Protocol for discontinuation. continuation of medications surrounding procedure discussed. All questions answered. I have spent less than 30 minutes on patient care today. Dr Chi was available by phone for the evaluation of this patient. The time was used to review the medical records including relevant urine studies and Prescription history (MAPs), review of the available imaging, evaluation and examination of the patient, coordination of care with the medical staff and if applicable referring physicians, as well as creation of the medical record PQRS Narrative: Smoking Status Former smoker Hx Alcohol Use (MH) Yes: 15 PACK PER DAY. Home Medications: Ambulatory Orders amLODIPine BESYLATE [Norvasc] 10 mg PO DAILY 03/07/15 allopurinoL [Zyloprim] 300 mg PO DAILY 04/10/18 Albuterol Inhaler [Ventolin Hfa Inhaler] 2 puff INHALATION RT-QID PRN 05/04/20 lisinopriL [Prinivil] 20 mg PO DAILY 02/26/21 Atorvastatin [Lipitor] 20 mg PO HS 04/19/21 levETIRAcetam [Keppra] 500 mg PO Q12HR 04/19/21 Acetaminophen [Tylenol Arthritis] 1,300 mg PO Q8H PRN 08/24/22 FLUoxetine HCL [PROzac] 20 mg PO DAILY 08/24/22 Rivaroxaban [Xarelto] 10 mg PO DAILY 35 Days #35 tab 12/11/22 Pantoprazole [Protonix] 40 mg PO BID #60 tab 04/01/23 Controlled Substance Measures - Controlled Substance Measures Is patient prescribed a controlled substance at discharge?: No
== END ==
LOC: PNWHC3 10:11
PROVIDERS: ATTEND Specialist
DX: M54.81 Occipital neuralgia (principal); G44.86 Cervicogenic headache; G89.29 Other chronic pain; Z88.6 Allergy status to analgesic agent; Z87.891 Personal history of nicotine dependence
CPT/HCPCS: 99211

== ENCOUNTER 2023-07-17 07:36 | Day surgery (SDC) | payer MEDICARE, OTHER ==
[2023-07-17] MEDS: LACTATED RINGERS 1,000 ML IV SCH (08:11)
[2023-07-17] MEDS ORDERED: fentaNYL (PF) 50 MCG/ML 2 ML AMP ONE (08:30)
[2023-07-17] MEDS ORDERED: ROPIVACAINE 5MG/ML 20ML VIAL ONE (08:30)
[2023-07-17] MEDS ORDERED: MIDAZOLAM 2 MG/2 ML VIAL ONE (08:30)
[2023-07-17 08:36] VITALS: RESP 16; TEMP 98.1
[2023-07-17] MEDS: IV FLUID CONTINUATION 1,000 ML IV ONE (09:15)
--- NOTE | 2023-07-17 09:22 | P.PCN ---
Description of Procedure: Preprocedure diagnosis. Cervical facet joint arthropathy, cervical spine spondylosis, cervical degenerative disc disease. Postprocedure diagnosis. As above. Procedure done. Bilateral C2-3, C3-4 facet joint (third occipital nerve and C3, C4 medial branch of dorsal ramus) diagnostic injection with local anesthetics under fluoroscopic guidance. Anesthesia. As per anesthesia department. IV sedation of Versed 1 milligram, fentanyl 100 micrograms give in OR. Continuous pulse ox, EKG, blood pressure and verbal communication was maintained with the patient in OR. Blood loss. None. Indication. Patient has got the diagnoses of cervical spondylolysis, facet joint arthropathy with neck pain. Discussed with the patient procedure, alternatives, complications including infection, bleeding, nerve damage, paralysis all of which could be permanent. Patient understands and all questions are answered. To be noted, patient has significant tenderness in the uppermost cervical paraspinal areas and occipital nerve distribution. Procedure note. After getting consent patient in OR in prone position. Back of the neck was prepped with chlorhexidine and draped in sterile fashion. After injecting 3 mL of plain 1% lidocaine subcutaneously, a 22-gauge spinal needle was introduced under tunnel vision of the fluoroscope AP view at the waist of the articular pillar (lateral mass) at C4 vertebral level. In the lateral view of the fluoroscope it was confirmed that the tip of the needle stayed within the dorsal half of the articular pillar (lateral mass). So, right C3-4 facet joint was targeted by blocking right C3 and C4 medial branch, right C2-3 facet joint was targeted by blocking right third occipital nerve and C3 medial branch. In exactly the same way , after subcutaneous injection of lidocaine, 22-gauge spinal needles were introduced under tunnel vision of the fluoroscope AP view at the waist of the articular pillars (lateral mass) at C3 vertebral level. In the lateral view of the fluoroscope it was confirmed that the tip of the needle stayed within the dorsal half of the articular pillar (lateral mass). To target third occipital nerve, the needle tip was over the lateral aspect of C2-3 facet joint. At each needle, 0.5 mL of 0.5% ropivacaine preservative-free was injected. In exactly same way left C2-3,C3-4 facet joints were targeted by blocking left TON,C3,C4 medial branch of dorsal ramus. After the procedure needle was taken out and bandage was applied. Disposition. Patient tolerated the procedure well. No complication. Discharged home in stable condition.
[2023-07-17 10:02] VITALS: BP 105/45; PULSE 93
--- NOTE | 2023-07-17 11:56 | FL ---
EXAMINATION TYPE: FL guided pain mgmt statistic Intraoperative/procedural fluoroscopic services were provided. Total fluoroscopy time is 73.2 seconds with a total of 2 submitted images to PACS. Please s ee the operative/procedural note for further details. DAP: [id number] mGym2
== END 2023-07-17 09:40 | disposition home or self-care (01) ==
LOC: ORPAIN 07:36
PROVIDERS: ATTEND Pain Medicine Interventional Pain Medicine
DX: M47.812 Spondylosis without myelopathy or radiculopathy, cervical region (principal); M50.31 Other cervical disc degeneration, high cervical region; Z79.01 Long term (current) use of anticoagulants; Z86.718 Personal history of other venous thrombosis and embolism; Z88.6 Allergy status to analgesic agent
CPT/HCPCS: 64490; 64491 ×2; J2250; J3010; J2795; 99152; 99153

== ENCOUNTER → 2023-08-06 | Outpatient (CLI) | payer MEDICARE ==
[2023-08-06 11:00] VITALS: BP 147/72; PULSE 79; RESP 15; TEMP 98.3
--- NOTE | 2023-08-06 15:06 | P.PAINPG ---
PQRS Measure Charge Sheet Comment: A 63 yr old male w sister at side with a history of severe and chronic neck pain secondary to occipital neuralgia and cervicogenic GILMORE presents today for evaluation s/p BL MBB C2-C3, C3-C4 #1. Pt states he experienced 70 % pain relief x hrs s/p procedure. Pain level is provoked at 7 /10 in intensity, int ermittent, predominantly axial, sharp in character w radiation of pain behind the ears. Pain is provoked by rotation and hyperextension. Pain is alleviated with injections, medications, manual massage and rest. Cervical disability score of 23. Interventional pain procedures completed include BL KD x2, Cervical TPIs x2, BL MBB C2-C4 x1 Patient is currently on Advil, Ibu, THC products Patient denies any side effects of the medication(s), denies excessive drowsiness or sleepiness, denies suicidal ideation and reports that the current pain medication is helping to control the pain and improve activities of daily living. Patient denies any motor or sensory deficits. Patient denies any fever or night sweats, denies any change in the bowel movements or urination. Physical Examination: -Constitutional: Cooperative. Not in acute distress . - Neurologic: Cranial nerve II to XII intact. No focal neurological deficits. - Psychatric: Alert & oriented x 3. Matching mood & appropriate affect. Marielle gment and insight intact. - Musculoskeletal: Cervical spine: Muscle bulk/ tone/ strength in the bilateral upper extremities normal Vertebral body tenderness to palpation over Spurling test positive Taut bands w twitch response Distraction test positive Facet loading test positive TTP BL C2-C3, C3-C4 Thoracic spine Muscle bulk / tone/ strength in the bilateral paraspinal muscles normal Vertebral body tender to palpation over Facet loading test positive TTP Lumbar spine: Motor bulk/ tone/ strength lower extremities , thigh and legs : 5/5 Deep tendon reflexes : Normal Knee Jerk. Normal Ankle Jerk . Vertebral body tenderness to palpation over Lumbar Facet Loading Test positive Straight Leg Raise: positive at 30 degrees right side/ left side Gaenslen's Test positive Sacral spine : Severe tenderness over the Sacroiliac joint: right side / left side Range of motion: Flexion of the lumbar spine <60 degrees Range of motion: Extension of the lumbar spine <20 degrees Gaenslen's Test positive R / L Ebony test: positive right side / left side Thigh Thrust Test positive R / L Sacral Thrust Test positive R/ L Assessment and plan: Chronic neck pain secondary to occipital neuralgia and cervicogenic GILMORE Recommendation of BL MBB C2-C3, C3-C4 #2. May need a series of injections, up until RFA, for optimal pain relief. Risks, benefits of procedure discussed and pt verbalized understanding. Minimal anesthesia include Fentanyl and Versed if clinically indicated. Protocol for discontinuation. continuation of medications surrounding procedure discussed. All questions answered. I have spent less than 30 minutes on patient care today. Dr Chi was available by phone for the evaluation of this patient. The time was used to review the medical records including relevant urine studies and Prescription history (MAPs), review of the available imaging, evaluation and examination of the patient, coordination of care with the medical staff and if applicable referring physicians, as well as creation of the medical record PQRS Narrative: Smoking Status Former smoker Hx Alcohol Use (MH) Yes: 15 PACK PER DAY. Home Medications: Ambulatory Orders amLODIPine BESYLATE [Norvasc] 10 mg PO DAILY 03/07/15 allopurinoL [Zyloprim] 300 mg PO DAILY 04/10/18 Albuterol Inhaler [Ventolin Hfa Inhaler] 2 puff INHALATION RT-QID PRN 05/04/20 lisinopriL [Prinivil] 20 mg PO DAILY 02/26/21 Atorvastatin [Lipitor] 20 mg PO HS 04/19/21 levETIRAcetam [Keppra] 500 mg PO Q12HR 04/19/21 Acetaminophen [Tylenol Arthritis] 1,300 mg PO Q8H PRN 08/24/22 FLUoxetine HCL [PROzac] 20 mg PO DAILY 08/24/22 Rivaroxaban [Xarelto] 10 mg PO DAILY 35 Days #35 tab 12/11/22 Pantoprazole [Protonix] 40 mg PO BID #60 tab 04/01/23 Controlled Substance Measures - Controlled Substance Measures Is patient prescribed a controlled substance at discharge?: No
== END ==
LOC: PNWHC3 10:08
PROVIDERS: ATTEND Specialist
DX: G89.29 Other chronic pain (principal); M54.81 Occipital neuralgia; G44.86 Cervicogenic headache; Z87.891 Personal history of nicotine dependence; Z88.6 Allergy status to analgesic agent
CPT/HCPCS: 99211

== ENCOUNTER → 2023-09-08 | Day surgery (SDC) | payer MEDICARE, OTHER ==
[~2023-09-08] MED LIST changes: -LACTATED RINGERS 1,000 ML IV SCH; +MIDAZOLAM 2 MG/2 ML VIAL ONE; +ROPIVACAINE 5MG/ML 20ML VIAL ONE
[2023-09-08] MEDS: LACTATED RINGERS 1,000 ML IV SCH (08:51)
--- NOTE | 2023-09-08 09:45 | P.PCN ---
Date of Procedure: 09/08/23 Surgeon: Shravan Moreno Pathology: none sent Condition: stable Disposition: PACU Description of Procedure: PREOPERATIVE DIAGNOSIS: Cervical Spondylosis with Facet Arthropathy.without myelopathy POSTOPERATIVE DIAGNOSIS: Cervical Spondylosis Facet Arthropathy. Without myelopathy PROCEDURES: Diagnostic Bilateral medial branchs block with fluoroscopic guidance for levels C2, third occipital nerve,C3 and C4 ANESTHESIA: Local with 1% lidocaine; IV sedation 2 mg of Versed EBL: Minimal PROCEDURE INDICATION: The patient with neck pain secondary to cervical arthropathy unresponsive to more conservative treatments. PROCEDURE DESCRIPTION / TECHNIQUE: The patient was seen and identified in the preoperative area. Risks, benefits, complications, and alternatives were discussed with the patient, the patient agreed to proceed with the procedure and signed the consent. IV was started. Vital signs remained stable throughout the procedure. The patient felt significant improvement in his pain immediately after the last medial branch block was done and his cervical range of motion improved too. Patient was taken to the OR and time out was completed. The patient was placed in the supine position on the procedure table. . The cervical area was prepped with chloraprep and draped in the usual sterile fashion. Critical pause was taken. Vital signs were closely monitored during the procedure. Conscious sedation was used during the procedure to decrease patients anxiety. Using cross-table lateral fluoroscopy, the centers of the trapezoid of C2,C3, and C4 were identified, marked, and localized with 1% lidocaine 1 ml at each level for skin and Sub Q infiltrations . for the third occipital nerve block target point was at the midpoint of the joint between C2 and C3. Subsequently, a 25 G 3.5 inch spinal needle was advanced guided by fluoroscopy to the target points mentioned above. Subsequently, 0.5 ml of preservative-free Ropivacaine 0.5% was injected at each level after negative aspiration for blood and CSF. [place] were then removed intact the same procedure was repeated ont the left side in the same manner. COMPLICATIONS: No acute complications. DISPOSITION / PLANS: The patient was placed in a supine position and transferred to the recovery area in a stable condition for observation and was discharged from the recovery room after meeting discharge criteria. Home discharge instructions given to the patient by the staff. The patient was reexamined prior to discharge. The patient will schedule a follow up in the clinic in 2-4 weeks.
[2023-09-08 09:46] VITALS: TEMP 98.1
[2023-09-08] MEDS: LACTATED RINGERS 1,000 ML IV ONE (09:48)
[2023-09-08 10:46] VITALS: BP 145/86; PULSE 66; RESP 16
--- NOTE | 2023-09-08 10:47 | FL ---
EXAMINATION TYPE: FL guided pain mgmt statistic DATE OF EXAM: 09/08/2023 HISTORY: Fluoroscopy time Total dose area product (DAP) in uGy*m?, mGy*cm? (or similar): 0.4718 IMPRESSION: 1. Fluoroscopy time.
== END ==
LOC: ORPAIN 08:18
PROVIDERS: ATTEND Anesthesiology
DX: M47.812 Spondylosis without myelopathy or radiculopathy, cervical region (principal); Z88.6 Allergy status to analgesic agent
CPT/HCPCS: 64490; 64491 ×2; J2250; J2795; 99152; 99153

== ENCOUNTER → 2023-09-30 | Outpatient (CLI) | payer MEDICARE, OTHER ==
[2023-09-30 12:19] VITALS: BP 114/71; PULSE 104; RESP 16
--- NOTE | 2023-09-30 14:49 | P.PAINPG ---
PQRS Measure Charge Sheet Comment: A 63 yr old male w sister at side with a history of severe and chronic neck pain secondary to occipital neuralgia and cervicogenic GILMORE presents today for evaluation s/p BL MBB C2-C3, C3-C4 #2. Pt states he experienced 80 % pain relief x 48 hrs s/p procedure. Pain level is provoked at 7 /10 in intensity, i ntermittent, predominantly axial, sharp in character w radiation of pain behind the ears. Pain is provoked by rotation and hyperextension. Pain is alleviated with injections, medications, manual massage and rest. Cervical disability score of 22. Interventional pain procedures completed include BL KD x2, Cervical TPIs x2, BL MBB C2-C4 x2 Patient is currently on Advil, Ibu, THC products Patient denies any side effects of the medication(s), denies excessive drowsiness or sleepiness, denies suicidal ideation and reports that the current pain medication is helping to control the pain and improve activities of daily living. Patient denies any motor or sensory deficits. Patient denies any fever or night sweats, denies any change in the bowel movements or urination. Physical Examination: -Constitutional: Cooperative. Not in acute distress . - Neurologic: Cranial nerve II to XII intact. No focal neurological deficits. - Psychatric: Alert & oriented x 3. Matching mood & appropriate affect. J udgment and insight intact. - Musculoskeletal: Cervical spine: Muscle bulk/ tone/ strength in the bilateral upper extremities normal Vertebral body tenderness to palpation over Spurling test positive Taut bands w twitch response Distraction test positive Facet loading test positive TTP BL C2-C3, C3-C4 Thoracic spine Muscle bulk / tone/ strength in the bilateral paraspinal muscles normal Vertebral body tender to palpation over Facet loading test positive TTP Lumbar spine: Motor bulk/ tone/ strength lower extremities , thigh and legs : 5/5 Deep tendon reflexes : Normal Knee Jerk. Normal Ankle Jerk . Vertebral body tenderness to palpation over Lumbar Facet Loading Test positive Straight Leg Raise: positive at 30 degrees right side/ left side Gaenslen's Test positive Sacral spine : Severe tenderness over the Sacroiliac joint: right side / left side Range of motion: Flexion of the lumbar spine <60 degrees Range of motion: Extension of the lumbar spine <20 degrees Gaenslen's Test positive R / L Ebony test: positive right side / left side Thigh Thrust Test positive R / L Sacral Thrust Test positive R/ L Assessment and plan: Chronic neck pain secondary to occipital neuralgia and cervicogenic GILMORE Recommendation of BL RFA C2-C3, C3-C4. Exhibited optimal pain relief w prior BL MBB C2-C4 procedures. Risks, benefits of procedure discussed and pt verbalized understanding. Minimal anesthesia include Fentanyl and Versed if clinically indicated. Protocol for discontinuation. continuation of medications surrounding procedure discussed. Lidoderm 4% QD #30 w 1 RF. All questions answered. I have spent less than 30 minutes on patient care today. Dr Chi was available by phone for the evaluation of this patient. The time was used to re view the medical records including relevant urine studies and Prescription history (MAPs), review of the available imaging, evaluation and examination of the patient, coordination of care with the medical staff and if applicable referring physicians, as well as creation of the medical record PQRS Narrative: Smoking Status Former smoker Hx Alcohol Use (MH) Yes: 15 PACK PER DAY. Home Medications: Ambulatory Orders amLODIPine BESYLATE [Norvasc] 10 mg PO QAM 03/07/15 allopurinoL [Zyloprim] 300 mg PO QAM 04/10/18 Albuterol Inhaler [Ventolin Hfa Inhaler] 2 puff INHALATION RT-QID PRN 05/04/20 lisinopriL [Prinivil] 20 mg PO QAM 02/26/21 Atorvastatin [Lipitor] 20 mg PO HS 04/19/21 levETIRAcetam [Keppra] 500 mg PO Q12HR 04/19/21 Acetaminophen [Tylenol Arthritis] 1,300 mg PO Q8H PRN 08/24/22 FLUoxetine HCL [PROzac] 20 mg PO QAM 08/24/22 Pantoprazole [Protonix] 40 mg PO BID #60 tab 04/01/23 Zolpidem [Ambien] 5 mg PO HS 09/03/23 Controlled Substance Measures - Controlled Substance Measures Is patient prescribed a controlled substance at discharge?: No
== END ==
LOC: PNWHC3 11:08
PROVIDERS: ATTEND Specialist
DX: M54.81 Occipital neuralgia (principal); G44.86 Cervicogenic headache; G89.29 Other chronic pain; Z87.891 Personal history of nicotine dependence; Z88.6 Allergy status to analgesic agent
CPT/HCPCS: 99211

== ENCOUNTER → 2023-10-30 | Day surgery (SDC) | payer MEDICARE, OTHER ==
[2023-10-29 08:39] VITALS: BMI 26.4
[~2023-10-30] MED LIST changes: +DEXAMETHASONE SOD PHOSPHATE 10 MG/ML 1 ML VIAL ONE; +fentaNYL (PF) 50 MCG/ML 2 ML AMP ONE
[2023-10-30] MEDS: IV FLUID CONTINUATION 1,000 ML IV ONE ×2 (09:17→10:47)
[2023-10-30 09:19] VITALS: TEMP 98.1
[2023-10-30] MEDS: LACTATED RINGERS 1,000 ML IV SCH (09:35)
--- NOTE | 2023-10-30 10:42 | P.PCN ---
Date of Procedure: 10/30/23 Description of Procedure: PREOPERATIVE DIAGNOSIS: Cervical Facet syndrome /cervical spondylosis. POSTOPERATIVE DIAGNOSIS: Cervical Facet syndrome /cervical spondylosis. PROCEDURES: Left Radiofrequency thermocoagulation of C2-C3 , and C4-C5 medial branches, with fluoroscopic guidance, SURGEON: Albert Pickett ANESTHESIA: Local , and IV sedation: Versed 1mg , and mcg patient examined before the procedure Sedation supervision start time : 1017 sedation Supervision end time: 1035 EBL: None Specimen removed: None Fluoroscopic image: Saved to electronic medical records. PROCEDURE INDICATION: The patient returns for cervical RFTC following previous positive diagnostic nerve blocks. Patient tried conservative therapy with marginal pain relief. PROCEDURE DESCRIPTION: The patient was seen and identified in the preoperative area. Risks, benefits, complications, and alternatives were discussed with the patient. The patient agreed to pursue with the procedure and signed the consent. IV was started and vital signs were stable. Patient was taken to the procedure room and time out was completed. The patient was placed in the prone position on the procedure table and cervical area was prepped with ChloraPrep 2 and draped in the usual sterile fashion. Critical pause was taken. Vital signs were closely monitored during the procedure. Using AP fluoroscopy, the waists of lateral margins of C2, C3 and C4 were identified and localized with 1 mL of 1% lidocaine. Used 20 [id number] radiofrequency cannula with a 10-mm active tip. Using the posterior approach, radiofrequency cannulas were guided by anterior posterior fluoroscopy to the waists of the lateral masses of C2, C3, and C4. Needle tip position was confirmed at the centroid of the trapezoids of C2, C3, and C4 with lateral fluoroscopy. Each site then underwent motor testing was done at 2 Hz and 0 to 2.5 volt with local stimulation, but no radicular symptoms down the arm. After negative aspiration for blood and CSF , 0.5 mill of block solution were given, and then C2, C3, and C4 sites underwent radiofrequency thermocoagulation at 80 degrees celsius for 90 seconds. After thermocoagulation, the C2, C3, and C4 underwent injection of 0.5 mL of block solution after negative aspiration of CSF and blood and with no paresthesias. Block solution contained 10 MG of dexamethasone and 1 mL of preservative-free ropivacaine 0. 5%. Cannulas were retracted approximately 1 cm and then upon further withdrawal of the needles, the skin was infiltrated with 1 mL of 0.5% ropivacaine at each level. Skin was cleansed and bandages were applied. COMPLICATIONS: None. preop VAS: 7/10 Postop VAS: 5/10 DISPOSITION / PLANS: The patient was placed in a supine position and transferred to the recovery area in a stable condition for observation and was discharged from the recovery room after meeting discharge criteria. Home discharge instructions given to the patient by the staff. The patient was reexamined prior to discharge. The patient will schedule a left side cervical radiofrequency ablation in 4 weeks.
[2023-10-30 10:49] VITALS: RESP 16
[2023-10-30 11:02] VITALS: BP 132/86
[2023-10-30 11:04] VITALS: PULSE 72
--- NOTE | 2023-10-30 12:01 | FL ---
EXAMINATION TYPE: FL guided pain mgmt statistic Intraoperative/procedural fluoroscopic services were provided. Total fluoroscopy time is 17.5 seconds with a total of 4 submitted images to PACS. Please s ee the operative/procedural note for further details. DAP: [id number] mGym2
== END ==
LOC: ORPAIN 08:53
DX: M47.812 Spondylosis without myelopathy or radiculopathy, cervical region (principal); Z86.718 Personal history of other venous thrombosis and embolism; Z79.01 Long term (current) use of anticoagulants
CPT/HCPCS: 64633; 64634; 99152; J2250; J1100; J3010; J2795

== ENCOUNTER 2024-06-17 10:18 | Emergency (ER) | payer MEDICARE, OTHER ==
[2024-06-17 10:25] VITALS: BP 160/85; PULSE 128; RESP 20; TEMP 98.2
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
[2024-06-17] MEDS: SODIUM CHLORIDE 0.9% 1,000 ML IV STA (10:59)
[2024-06-17] MEDS: METOCLOPRAMIDE 5 MG/ML 2 ML VIAL IVP STA (11:00)
[2024-06-17 11:26] LABS: Basophils % (A) 0 %; Eosinophils # (A) 0.1 k/uL (0-0.7); Eosinophils % (A) 1 %; HCT 46.3 % (39.0-53.0); HGB 15.2 gm/dL (13.0-17.5); Lymphocytes # (A) 1.4 k/uL (1.0-4.8); Lymphocytes % (A) 9 %; MCH 32.4 pg (25.0-35.0); MCHC 32.8 g/dL (31.0-37.0); MCV 98.9 fL (80.0-100.0); Monocytes # (A) 0.5 k/uL (0-1.0); Monocytes % (A) 4 %; Neutrophils # (A) 13.1 k/uL (1.3-7.7); Neutrophils % (A) 86 %; Platelet Count 267 k/uL (150-450); RBC 4.68 m/uL (4.30-5.90); RDW 13.6 % (11.5-15.5); WBC 15.2 k/uL (3.8-10.6)
[2024-06-17 12:05] LABS: Influenza A Not Detected (Not Detectd); Influenza B Not Detected (Not Detectd); RSV Not Detected (Not Detectd)
[2024-06-17 12:10] LABS: Appearance,Urine Clear (Clear); Bilirubin,Urine Negative (Negative); Blood,Urine Small (Negative); Color,Urine Light Yellow; Glucose,Urine (UA) Negative (Negative); Ketones,Urine 2+ (Negative); Leukocyte Esterase,Urine Negative (Negative); Mucus,Urine Rare /hpf; Nitrite,Urine Negative (Negative); Protein,Urine Trace (Negative); RBC,Urine <1 /hpf (0-5); Specific Gravity,Urine 1.016 (1.001-1.035); Urobilinogen,Urine <2.0 mg/dL (<2.0); WBC,Urine 1 /hpf (0-5)
[2024-06-17 12:18] LABS: ALT 38 U/L (4-49); AST 39 U/L (17-59); African American GFR (CKD) >90 (>60 ml/min/1.73 sqM); Albumin 4.9 g/dL (3.5-5.0); Alkaline Phosphatase 78 U/L (38-126); Anion Gap 21 mmol/L; Blood Urea Nitrogen 15 mg/dL (9-20); Calcium 9.8 mg/dL (8.4-10.2); Carbon Dioxide 18 mmol/L (22-30); Chloride 99 mmol/L (98-107); Glucose 110 mg/dL (74-99); Lipase 99 U/L (23-300); Non-African American GFR(CKD) >90 (>60 ml/min/1.73 sqM); Potassium 4.7 mmol/L (3.5-5.1); Sodium 138 mmol/L (137-145); Total Bilirubin 0.7 mg/dL (0.2-1.3); Total Protein 7.7 g/dL (6.3-8.2)
== END 2024-06-17 13:07 | disposition home or self-care (01) ==
LOC: EC 10:18
DX: K52.9 Noninfective gastroenteritis and colitis, unspecified (principal); G40.909 Epilepsy, unspecified, not intractable, without status epilepticus; Z86.73 Personal history of transient ischemic attack (TIA), and cerebral infarction without residual deficits; Z87.448 Personal history of other diseases of urinary system; Z87.891 Personal history of nicotine dependence
CPT/HCPCS: 36415; 93005; 80053; 83690; 85025; 81001; 87636; 99284; 96374; 96361; J2765

== ENCOUNTER → 2024-06-17 | Day surgery (SDC) | payer MEDICARE, OTHER ==
[2024-06-15 08:48] VITALS: BMI 32.8
[~2024-06-17] MED LIST changes: -DEXAMETHASONE SOD PHOSPHATE 10 MG/ML 1 ML VIAL ONE; +LACTATED RINGERS 1,000 ML IV SCH; -MIDAZOLAM 2 MG/2 ML VIAL ONE; -ROPIVACAINE 5MG/ML 20ML VIAL ONE; -fentaNYL (PF) 50 MCG/ML 2 ML AMP ONE
[2024-06-17 08:22] VITALS: TEMP 98
[2024-06-17] MEDS: LACTATED RINGERS 1,000 ML IV ONE (08:26)
[2024-06-17] MEDS: ONDANSETRON 4 MG/2 ML VIAL IVP ONE (08:37)
[2024-06-17 10:03] VITALS: BP 152/83; PULSE 120; RESP 17
[2024-06-17] MEDS: IV FLUID CONTINUATION 1,000 ML IV ONE (10:03)
--- NOTE | 2024-06-17 10:14 | P.PN ---
Progress Note - Text Progress Note Date: 06/17/24 This is 64 years old male who was referred to have RFA of the right side medial branch cervical area, in the preop holding area patient heart rate was 122 to 125, and patient was complaining of abdominal pain and severe nausea and he reported that some episode of vomiting , and some diarrhea at home, we started on IV fluid hydration and patient received 1000 ml of LR, 4 mg of Zofran and he continued to have severe nausea, and heart rate continued to be more than 120, there was no fever, for this reason the procedure was canceled and patient will be referred to the emergency room for evaluation, for for possible gastroenteritis, and the procedure will be rescheduled for a future date
== END ==
LOC: ORPAIN 07:59
PROVIDERS: ATTEND Specialist
DX: M47.812 Spondylosis without myelopathy or radiculopathy, cervical region (principal); Z53.9 Procedure and treatment not carried out, unspecified reason

== ENCOUNTER 2024-07-01 08:55 | Day surgery (SDC) | payer MEDICARE, OTHER ==
[2024-07-01 09:33] VITALS: RESP 16; TEMP 98.1
[2024-07-01] MEDS: IV FLUID CONTINUATION 1,000 ML IV ONE ×2 (09:48→10:56)
[2024-07-01] MEDS: LACTATED RINGERS 1,000 ML IV SCH (09:48)
[2024-07-01] MEDS ORDERED: fentaNYL (PF) 50 MCG/ML 2 ML AMP ONE (10:11)
[2024-07-01] MEDS ORDERED: MIDAZOLAM 2 MG/2 ML VIAL ONE (10:11)
[2024-07-01] MEDS ORDERED: methylPREDNISolone ACETATE 40 MG/ML 1 ML VIAL ONE (10:11)
[2024-07-01] MEDS ORDERED: ROPIVACAINE 5MG/ML 20ML VIAL ONE (10:11)
--- NOTE | 2024-07-01 10:49 | P.PCN ---
Date of Procedure: 07/01/24 Procedure(s) Performed: PREOPERATIVE DIAGNOSIS: Cervical spondylosis with Facet Arthropathy without myelopathy. POSTOPERATIVE DIAGNOSIS: Cervical spondylosis with Facet Arthropathy without myelopathy. PROCEDURES: Radiofrequency thermocoagulation RIGHT C2 , C3, C4 medial branch with Fluroscopy [place](fluoroscopy in Radiology department ) (to denervate the facet joint at Right C2-3 ,C3- 4 ) ANESTHESIA: moderate sedation with fentanyl 150 micrograms and Versed 1 mg EBL: Minimal PROCEDURE INDICATION: The patient with neck pain secondary to cervical arthropathy who had more than 50% relief of her pain with previous diagnostic cervical medial branch block. PROCEDURE DESCRIPTION / TECHNIQUE: The patient was seen and identified in the preoperative area. Risks, benefits, complications, and alternatives were discussed with the patient, the patient agreed to proceed with the procedure and signed the consent. IV was started. Vital signs remained stable throughout the procedure. Patient was taken to the OR and time out was completed. The patient was placed in the Lateral position on the procedure table. A pillow was placed under the patients chest to increase the cervical interlaminar space. The cervical area was prepped and draped in the usual sterile fashion. Critical pause was taken. Vital signs were closely monitored during the procedure. Conscious sedation was used during the procedure to decrease patients anxiety. Using cross-table lateral fluoroscopy, the centroid of the trapezoid of Right C2 ,C3, C4 were identified, marked, and localized with 1% lidocaine. Subsequently, a 20 [id number] radiofrequency cannula with a 10-mm active tip was advanced guided by fluoroscopy to the centroid of the trapezoid of Right C2 ,C3, C4 . Needle tip position was confirmed at the centroid of the trapezoids of Right C2 ,C3, C4 with anteroposterior fluoroscopy. Each site then underwent sensory testing at 50 Hz and 0 to 1 volt and motor testing at 2 Hz and 0 to 3 volt with local stimulation, but no radicular symptoms down the arm. Thereafter each sites underwent radiofrequency thermocoagulation at 80 degrees celsius for 90 seconds after injecting 0.5 ml of PF Ropivacaine 0.5 %. After thermocoagulation, 1 ml of the block solution containing Depo-Medrol 40 mg and 3 mL of preservative-free normal saline was injected at the Right C2 ,C3, C4, levels after negative aspiration of CSF and blood and with no paresthesias. Cannulas were retracted while injecting lidocaine 1% until the needle is out. Skin was cleansed and bandages were applied. COMPLICATIONS: No acute complications. DISPOSITION / PLANS: The patient was placed in a supine position and transferred to the recovery area in a stable condition for observation and was discharged from the recovery room after meeting discharge criteria. Home discharge instructions given to the patient by the staff. The patient was reexamined prior to discharge. The patient will schedule a follow up in the clinic in 2-4 weeks. note= we will place patient in prone position we were not able to visualize C4 vertebra, for this reason we did the procedure in the lateral position right side up.
[2024-07-01 11:10] VITALS: BP 131/87; PULSE 102
--- NOTE | 2024-07-01 11:47 | FL ---
EXAMINATION TYPE: FL guided pain mgmt statistic DATE OF EXAM: 07/01/2024 11:26 AM COMPARISON: Pre Operative Images if available both CT/MRI or plain film CLINICAL INDICATION: Male, 64 years old with history of PAIN; TECHNIQUE: FL guided pain mgmt statistic, multiple fluoroscopic images provided for procedure. DAP: 0.44477 mGym2 Gycm2 uGym2 cGycm2 or equivalent. FINDINGS: Fluoroscopic images during injection for pain management demonstrate multilevel degeneration changes throughout the spine. No evidence for fracture. No acute process identified. IMPRESSION: 1. No evidence for intraoperative complication. 2. Please see the operative/procedural note for further details. [facility], , 07/01/2024 11:45 AM
== END 2024-07-01 11:33 | disposition home or self-care (01) ==
LOC: ORPAIN 08:55
PROVIDERS: ATTEND Specialist
DX: M47.812 Spondylosis without myelopathy or radiculopathy, cervical region (principal)
CPT/HCPCS: 64633; 64634; J2250; J3010; J2795; J1010; 99152

== ENCOUNTER → 2024-07-21 | Outpatient (CLI) | payer MEDICARE, OTHER ==
[2024-07-21 09:47] VITALS: BP 139/83; PULSE 98; RESP 17; TEMP 95.8
--- NOTE | 2024-07-21 15:46 | P.PAINPG ---
PQRS Measure Charge Sheet Comment: A 64 yr old male w sister at side with a history of severe and chronic neck pain secondary to occipital neuralgia, cervicogenic GILMORE presents today for evaluation s/p BL RFA C2-C3, C3-C4. Pt states he experienced 80 % pain relief s/p procedure. Pain level is provoked at 1 /10 in intensity, intermittent, pred ominantly axial, localized in the R lumbar spine, sharp in character w radiation of pain to the R hip. Pain is provoked by sitting for periods > 30 min. Pain is alleviated with injections, medications, manual massage and rest. Interventional pain procedures completed include BL KD x2, Cervical TPIs x2, BL RFA C2-C4 x2 (11/03, 07/05) Patient is currently on Advil, Ibu, THC products Patient denies any side effects of the medication(s), denies excessive drowsiness or sleepiness, denies suicidal ideation and reports that the current pain medication is helping to control the pain and improve activities of daily living. Patient denies any motor or sensory deficits. Patient denies any fever or night sweats, denies any change in the bowel movements or urination. Physical Examination: -Constitutional: Cooperative. Not in acute distress . - Neurologic: Cranial nerve II to XII intact. No focal neurological deficits. - Psychatric: Alert & oriented x 3. Matching mood & appropriate affect. Judgmen t and insight intact. - Musculoskeletal: Cervical spine: Muscle bulk/ tone/ strength in the bilateral upper extremities normal Vertebral body tenderness to palpation over Spurling test positive Taut bands w twitch response Distraction test positive Facet loading test positive TTP BL C2-C3, C3-C4 Thoracic spine Muscle bulk / tone/ strength in the bilateral paraspinal muscles normal Vertebral body tender to palpation over Facet loading test positive TTP Lumbar spine: Motor bulk/ tone/ strength lower extremities , thigh and legs : 5/5 Deep tendon reflexes : Normal Knee Jerk. Normal Ankle Jerk . Vertebral body tenderness to palpation over Lumbar Facet Loading Test positive Straight Leg Raise: positive at 30 degrees right side/ left side Gaenslen's Test positive Sacral spine : Severe tenderness over the Sacroiliac joint: right side / left side Range of motion: Flexion of the lumbar spine <60 degrees Range of motion: Extension of the lumbar spine <20 degrees Gaenslen's Test positive R / L Ebony test: positive right side / left side Thigh Thrust Test positive R / L Sacral Thrust Test positive R/ L Assessment and plan: Chronic LBP and neck pain secondary to occipital neuralgia, cervicogenic GILMORE, radiculopathy, spondylosis and facet arthropathy without myelopathy Will manage residual pain and may RTC on an as needed basis. All questions answered. I have spent less than 30 minutes on patient care today. Dr Chi was available by phone for the evaluation of this patient. The time was used to review the medical records including relevant urine studies and Prescription history (MAPs), review of the available imaging, evaluation and examination of the patient, coordination of care with the medical staff and if applicable referring physicians, as well as creation of the medical record PQRS Narrative: Smoking Status Former smoker Hx Alcohol Use (MH) Yes: 15 PACK PER DAY. Home Medications: Ambulatory Orders amLODIPine BESYLATE [Norvasc] 10 mg PO QAM 03/07/15 allopurinoL [Zyloprim] 300 mg PO QAM 04/10/18 Albuterol Inhaler [Ventolin Hfa Inhaler] 2 puff INHALATION RT-QID PRN 05/04/20 lisinopriL [Prinivil] 20 mg PO QAM 02/26/21 Atorvastatin [Lipitor] 20 mg PO HS 04/19/21 levETIRAcetam [Keppra] 500 mg PO Q12HR 04/19/21 Acetaminophen [Tylenol Arthritis] 1,300 mg PO Q8H PRN 08/24/22 FLUoxetine HCL [PROzac] 20 mg PO QAM 08/24/22 Pantoprazole [Protonix] 40 mg PO BID #60 tab 04/01/23 Zolpidem [Ambien] 5 mg PO HS 09/03/23 Celecoxib [CeleBREX] 200 mg PO DAILY 10/29/23 Gabapentin 300 mg PO DAILY 06/15/24 Ondansetron [Zofran] 4 mg PO Q8HR PRN #15 tab 06/17/24 Controlled Substance Measures - Controlled Substance Measures Is patient prescribed a controlled substance at discharge?: No
== END ==
LOC: PNWHC3 09:12
PROVIDERS: ATTEND Specialist
DX: M47.812 Spondylosis without myelopathy or radiculopathy, cervical region (principal); M54.81 Occipital neuralgia; G89.29 Other chronic pain; Z87.891 Personal history of nicotine dependence; Z88.6 Allergy status to analgesic agent
CPT/HCPCS: 99211

== ENCOUNTER 2024-08-14 21:59 | Emergency (ER) | payer MEDICARE, OTHER ==
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
[2024-08-14 23:22] LABS: HCT 40.5 % (39.6-50.0); HGB 14.7 g/dL (13.0-17.0); MCH 33.9 pg (27.0-32.0); MCHC 36.3 g/dL (32.0-37.0); MCV 93.5 fL (80.0-97.0); Mean Platelet Volume 9.2 fL (9.5-12.2); Platelet Count 199 10*3/uL (140-440); RBC 4.33 10*6/uL (4.40-5.60); RDW 13.9 % (11.5-14.5); WBC 6.07 10*3/uL (4.50-10.00)
[2024-08-14 23:41] VITALS: PULSE 93
--- NOTE | 2024-08-15 00:11 | XR ---
EXAM: XR Chest, 2 Views CLINICAL HISTORY: Difficulty breathing TECHNIQUE: Frontal and lateral views of the chest. COMPARISON: 08/24/2022. FINDINGS: Lungs: No consolidation. Hypoventilation with bilateral atelectasis. Pulmonary vessels top normal caliber without definite CHF. Pleural space: No pleural effusion. No pneumothorax. Heart: No cardiomegaly. Mediastinum: Unremarkable. Normal mediastinal contour. Bones/joints: Unremarkable. No acute fracture. IMPRESSION: Hypoventilation with bilateral atelectasis. Pulmonary vessels top normal caliber without definite CHF.
[2024-08-15 00:14] LABS: ALT 44 U/L (4-49); AST 52 U/L (17-59); African American GFR (CKD) >90 (>60 ml/min/1.73 sqM); Albumin 4.6 g/dL (3.5-5.0); Alkaline Phosphatase 70 U/L (38-126); Anion Gap 17 mmol/L; Blood Urea Nitrogen 13 mg/dL (9-20); Calcium 9.3 mg/dL (8.4-10.2); Carbon Dioxide 24 mmol/L (22-30); Chloride 98 mmol/L (98-107); Glucose 91 mg/dL (74-99); Magnesium 1.3 mg/dL (1.6-2.3); Non-African American GFR(CKD) >90 (>60 ml/min/1.73 sqM); Sodium 139 mmol/L (137-145); Total Bilirubin 0.5 mg/dL (0.2-1.3); Total Protein 7.3 g/dL (6.3-8.2)
[2024-08-15 00:15] LABS: Alcohol 185 mg/dL
[2024-08-15 00:31] LABS: Basophils # (M) 0.06 k/uL (0-0.2); Eosinophils # (M) 0.24 k/uL (0-0.7); Lymphocytes # (M) 3.34 k/uL (1.0-4.8); Monocytes # (M) 0.67 k/uL (0-1.0); Neutrophils # (M) 1.88 k/uL (1.3-7.7); Neutrophils % (M) 31 %; Nucleated Red Blood Cells 0 /100 WBC (0-0); RBC Morphology Normal; Total Cells Counted 200
[2024-08-15] MEDS: MAGNESIUM OXIDE 400 MG TAB PO STA (00:46)
[2024-08-15 00:52] VITALS: BP 144/90; RESP 18; TEMP 97.5
== END 2024-08-15 00:52 | disposition home or self-care (01) ==
LOC: EC 21:59
DX: F10.129 Alcohol abuse with intoxication, unspecified (principal); F12.10 Cannabis abuse, uncomplicated; E83.42 Hypomagnesemia; Z86.73 Personal history of transient ischemic attack (TIA), and cerebral infarction without residual deficits; Z87.891 Personal history of nicotine dependence; Z88.6 Allergy status to analgesic agent
CPT/HCPCS: 36415; 80053; 83735; 85025; 71046; 99285; G0480; 80320